=== PATIENT | female | born 1955 | race African-American/Black ===

== ENCOUNTER → 2017-05-23 | Outpatient (CLI) | payer MEDICARE ==
[2017-05-23 09:47] LABS: Calcium 9.6 mg/dL (8.4-10.2); Potassium 4.5 mmol/L (3.5-5.1); Total Bilirubin 0.7 mg/dL (0.2-1.3); Total Protein 7.5 g/dL (6.3-8.2)
[2017-05-23 10:20] LABS: CHCM 30.2; HDW 2.38; HGB 13.9 gm/dL (11.4-16.0); Hypochromasia Moderate; MCH 29.5 pg (25.0-35.0); MCHC 29.6 g/dL (31.0-37.0); MCV 99.9 fL (80.0-100.0); RDW 12.2 % (11.5-15.5); WBC 7.4 k/uL (3.8-10.6)
[2017-05-23 12:15] LABS: Hemoglobin A1C 6.7 % (4.2-6.1)
== END | disposition home or self-care (01) ==
LOC: LABWHC1 08:37
PROVIDERS: ATTEND Internal Medicine
DX: E78.2 Mixed hyperlipidemia (principal); E11.65 Type 2 diabetes mellitus with hyperglycemia; I10 Essential (primary) hypertension
CPT/HCPCS: 36415; 80053; 80061; 83036; 84443; 85027

== ENCOUNTER → 2017-08-09 | Outpatient (CLI) | payer MEDICARE, OTHER ==
--- NOTE | 2017-08-10 08:52 | BD ---
EXAMINATION TYPE: MG DEXA axial skeleton. DATE OF EXAM: 08/09/2017 COMPARISON: NONE CLINICAL HISTORY: Height: 64.5 IN Weight: 289 LBS FRAX RISK QUESTIONS: Alcohol (3 or more units per day): NO Family History (Parent hip fracture): NO Glucocorticoids (More than 3mos): NO (Ex: prednisone, prednisolone, methylprednisolone, dexamethasone, and hydrocortisone). History of Fracture in Adulthood: NO Secondary Osteoporosis: 1. Type 1 Diabetes: NO 2. Hyperthyroidism: NO 3. Menopause before 45: YES AGE 33 4. Malnutrition: NO 5. Chronic liver disease: NO Rheumatoid Arthritis: NO Current Tobacco Use: NO RISK FACTORS HISTORY OF: Active: MINIMAL Diet low in dairy products/other sources of calcium: YES Postmenopausal woman: YES AGE 33 Lost more than 2 inches in height since high school: YES 2 " Poor Health: YES MEDICATIONS: Additional Medications: CHF MEDS, PAIN MEDS, BLOOD PRESSURE MEDS, Additional History: KIDNEY CANCER AGE 46 EXAM MEASUREMENTS: Bone mineral densitometry was performed using the [employer] System. Bone mineral density as measured about the Lumbar spine is: ----- L1-L4(G/cm2): 1.285 T Score Values are as follows: ----- L2: -0.4 ----- L3: 0.8 ----- L4: 2.5 ----- L1-L4: 0.9 Bone mineral density BASELINE Bone mineral density about the R hip (g/cm2): 0.963 Bone mineral density about the L hip (g/cm2): 0.910 T Score values are as follows: -----R Neck: -0.5 -----L Neck: -0.9 -----R Total: 0.8 -----L Total: 0.2 Bone mineral density BASELINE IMPRESSION: Normal (Values between +1 and -1 indicate normal bone mass). Consider repeating this study in 5 year s or sooner if there is some new clinical indication. NOTE: T-SCORE=SD OF THE YOUNG ADULT MEAN.
--- NOTE | 2017-08-10 09:37 | MM ---
Reason for exam: screening (asymptomatic). Last mammogram was performed 4 years and 8 months ago. History: Patient is postmenopausal and has history of other cancer at age 47. Physical Findings: A clinical breast exam by your physician is recommended on an annual basis and results should be correlated with mammographic findings. MG 3D Screening Mammo W/Cad Bilateral CC, MLO, and CV view(s) were taken. Prior study comparison: December 10, 2012, bilateral digital screening mammo w/CAD. September 29, 2011, bilateral digital screening mammo w/CAD. There are scattered fibroglandular densities. No suspicious abnormality on the left breast. There is a new 6mm focal asymmetry on the lower inner quadrant of the right breast, possibly a skin lesion. ASSESSMENT: Incomplete: need additional imaging evaluation, BI-RAD 0 RECOMMENDATION: Special view mammogram of the right breast. If lesion persists on supplemental views, image directed ultrasound is recommended. [facility] will attempt to contact patient to return for supplemental views and ultrasound if indicated.
== END | disposition home or self-care (01) ==
LOC: RADMAMWWP 14:27
PROVIDERS: ATTEND Internal Medicine
DX: Z12.31 Encounter for screening mammogram for malignant neoplasm of breast (principal); R92.8 Other abnormal and inconclusive findings on diagnostic imaging of breast; N95.1 Menopausal and female climacteric states
CPT/HCPCS: 77063; 77067; 77080

== ENCOUNTER 2018-09-24 15:31 | Inpatient (IN) | payer MEDICARE, OTHER ==
[2018-09-24] MEDS ORDERED: SODIUM CHLORIDE 0.9% 1,000 ML IV ONE (17:15)
--- NOTE | 2018-09-24 17:15 | ED ---
General Adult HPI - General Chief complaint: Recheck/Abnormal Lab/Rx Stated complaint: POSS CARDIAC ISSUE, TRANSFER FROM Time Seen by Provider: 09/24/18 15:35 Source: patient, EMS, RN notes reviewed Mode of arrival: EMS Limitations: no limitations - History of Present Illness Initial comments: This is a 63-year-old female who is brought into the emergency department for altered mental status. Patient was seen at [facility] for she was given Narcan and she came around to her [facility]. Patient currently is been sent to our facility because her creatinine was extremely elevated and this was new for her. Patient currently tells me she has no symptoms. Patient states her only complaint currently is that she's hungry. Patient denies any chest pain difficult breathing shortness breath per patient denies any recent fever chills or cough per patient denies any lightheadedness dizziness or near syncopal episode. Patient denies headache patient denies numbness weakness. Patient denies abdominal pain patient denies nausea vomiting diarrhea. Patient denies any dysuria hematuria urinary frequency. - Related Data Home Medications Medication Instructions Recorded Confirmed Unable To Assess [Unable to Assess] 04/19/16 04/19/16 Allergies Allergy/AdvReac Type Severity Reaction Status Date / Time No Known Allergies Allergy Verified 09/24/18 16:51 Review of Systems ROS Statement: Those systems with pertinent positive or pertinent negative responses have been documented in the HPI. ROS Other: All systems not noted in ROS Statement are negative. Past Medical History Past Medical History: Asthma, Cancer, COPD, Diabetes Mellitus, Hypertension Additional Past Medical History / Comment(s): arthritis History of Any Multi-Drug Resistant Organisms: None Reported Past Surgical History: Orthopedic Surgery Additional Past Surgical History / Comment(s): tubal ; left foot surgery; nephrectomy Past Psychological History: No Psychological Hx Reported Smoking Status: Never smoker Past Alcohol Use History: None Reported Past Drug Use History: None Reported General Exam - General Exam Comments Initial Comments: GENERAL: Patient is well-developed and well-nourished. Patient is nontoxic and well- hydrated and is in no acute distress. ENT: Neck is soft and supple. No significant lymphadenopathy is noted. Oropharynx is clear. Moist mucous membranes. Neck has full range of motion without eliciting any pain. EYES: The sclera were anicteric and conjunctiva were pink and moist. Extraocular movements were intact and pupils were equal round and reactive to light. Eyelids were unremarkable. PULMONARY: Unlabored respirations. Good breath sounds bilaterally. No audible rales rhonchi or wheezing was noted. CARDIOVASCULAR: There is a regular rate and rhythm without any murmurs gallops or rubs. ABDOMEN: Soft and nontender with normal bowel sounds. SKIN: Skin is clear with no lesions or rashes and otherwise unremarkable. NEUROLOGIC: Patient is alert and oriented x3. Cranial nerves II through XII are grossly intact. Motor and sensory are also intact. Normal speech, volume and content. Symmetrical smile. MUSCULOSKELETAL: Normal extremities with adequate strength and full range of motion. LYMPHATICS: No significant lymphadenopathy is noted PSYCHIATRIC: Normal psychiatric evaluation. Limitations: no limitations Course Vital Signs 09/24/18 15:33 Temperature 98.8 F Pulse Rate 67 Respiratory 18 Rate Blood Pressure 129/47 O2 Sat by Pulse 95 Oximetry Medical Decision Making - Medical Decision Making I spoke with Dr. Michelle he agreed to admit the patient admitted the patient wrote admitting orders. Disposition Clinical Impression: Acute renal failure, Altered mental status, Drug ingestion, accidental Disposition: ADMITTED IP TO THIS HOSP Referrals: Lelo Michelle MD [Primary Care Provider] - 1-2 days Time of Disposition: 17:14
[2018-09-24] MEDS ORDERED: NALOXONE 0.4 MG/ML 10 ML VIAL IVP STA (17:26)
[2018-09-25 03:45] LABS: Glucose,Whole Blood 208 mg/dL (75-99)
[2018-09-25 06:18] LABS: Glucose,Whole Blood 176 mg/dL (75-99)
[2018-09-25 07:33] LABS: Basophils % (A) 0 %; Eosinophils # (A) 0.1 k/uL (0-0.7); Eosinophils % (A) 1 %; HCT 43.5 % (34.0-46.0); HGB 12.8 gm/dL (11.4-16.0); Hypochromasia Marked; Lymphocytes % (A) 13 %; MCH 30.4 pg (25.0-35.0); MCHC 29.5 g/dL (31.0-37.0); MCV 103.2 fL (80.0-100.0); Macrocytosis Slight; Monocytes % (A) 6 %; Neutrophils # (A) 11.8 k/uL (1.3-7.7); Neutrophils % (A) 78 %; Platelet Count 175 k/uL (150-450); RBC 4.21 m/uL (3.80-5.40); RDW 13.1 % (11.5-15.5); WBC 15.2 k/uL (3.8-10.6)
[2018-09-25 07:48] LABS: Albumin 3.9 g/dL (3.5-5.0); Calcium 8.4 mg/dL (8.4-10.2); Potassium 5.4 mmol/L (3.5-5.1); Total Bilirubin 0.5 mg/dL (0.2-1.3); Total Protein 7.1 g/dL (6.3-8.2)
[2018-09-25 11:43] LABS: Glucose,Whole Blood 151 mg/dL (75-99)
[2018-09-25] MEDS ORDERED: APIXABAN 5 MG TAB PO SCH (11:45)
--- NOTE | 2018-09-25 11:48 | P.HPIM ---
History of Present Illness H&P Date: 09/25/18 This is a 63-year-old female patient presented to the hospital with altered mental status changes. Patient currently follows with pain clinic. According to records and patient's daughter at bedside patient took 2 Percocet along with 2 MS Contin two night ago. Upon waking patient was increasingly weak. Patient' s family urged patient to go to hospital for further evaluation. Patient went to [facility] in which she received Narcan. She also on acute renal failure with creatinine of 6.79. Patient was then transferred to [facility] for further evaluation. She denies any recent illness with diarrhea or emesis. Patient does reports she continue meds as prescribed. Patient has past medical history of asthma, cancer, COPD, diabetes mellitus, DVT which she takes eliquis, hypertension, renal disease, [place] filter and chronic pain from arthritis. During examination patient was alert and oriented 3 but very drowsy. Patient would often fall asleep during conversation. Patient has not received any narcotics for 24 hours. Patient's daughter at bedside also reports that patient has been delusional lately. On examination patient does follow commands and has equal strength throughout all extremities. No facial droop noted. Speech is clear. At this time drug screen has been ordered. CT of head ordered. Dr. Mitchell has been consulted for nephrology. All narcotics currently on hold. EKG ordered. Chest x-ray ordered. Urinary analysis and culture ordered. Patient denies any chest pain. Patient is complaining of nonproductive cough. Patient denies nausea vomiting or diarrhea. Patient denies any urinary burning or frequency. Review of Systems Please refer to HPI otherwise unremarkable Past Medical History Past Medical History: Asthma, Cancer, COPD, Diabetes Mellitus, Deep Vein Thrombosis (DVT), Hypertension, Renal Disease Additional Past Medical History / Comment(s): arthritis, polo filter History of Any Multi-Drug Resistant Organisms: None Reported Past Surgical History: Orthopedic Surgery Additional Past Surgical History / Comment(s): tubal ; left foot surgery; nephrectomy Past Psychological History: No Psychological Hx Reported Smoking Status: Never smoker Past Alcohol Use History: None Reported Past Drug Use History: None Reported - Past Family History Mother Family Medical History: CVA/TIA Father History Unknown: Yes Medications and Allergies Home Medications Medication Instructions Recorded Confirmed Type ALPRAZolam [Xanax] 0.25 mg PO TID PRN 09/24/18 09/24/18 History Albuterol Inhaler [Ventolin Hfa 2 puff INHALATION RT-Q4H PRN 09/24/18 09/24/18 History Inhaler] Apixaban [Eliquis] 5 mg PO BID 09/24/18 09/24/18 History Atenolol 12.5 mg PO DAILY 09/24/18 09/24/18 History Atorvastatin [Lipitor] 80 mg PO HS 09/24/18 09/24/18 History Citalopram Hydrobromide [CeleXA] 20 mg PO DAILY 09/24/18 09/24/18 History Docusate Sodium [Dok] 100 mg PO BID 09/24/18 09/24/18 History Gabapentin [Neurontin] 100 mg PO TID 09/24/18 09/24/18 History INSULIN ASPART (NovoLOG) [NovoLOG 10 unit SQ TID 09/24/18 09/24/18 History (formulary)] Insulin Glargine [Lantus] 30 - 35 unit SQ HS 09/24/18 09/24/18 History Isosorbide Mononitrate ER [Imdur] 30 mg PO DAILY 09/24/18 09/24/18 History Lisinopril [Zestril] 10 mg PO DAILY 09/24/18 09/25/18 History Montelukast [Singulair] 10 mg PO DAILY 09/24/18 09/24/18 History Morphine Sulfate Ir [MSIR] 30 mg PO QID 09/24/18 09/24/18 History Omeprazole 20 mg PO DAILY 09/24/18 09/24/18 History Spironolactone 25 mg PO DAILY 09/24/18 09/24/18 History cloNIDine HCL [Catapres] 0.1 mg PO BID 09/24/18 09/24/18 History hydrALAZINE HCL 50 mg PO BID 09/24/18 09/24/18 History Chlorthalidone [Hygroton] 25 mg PO DAILY 09/25/18 09/25/18 History Allergies Allergy/AdvReac Type Severity Reaction Status Date / Time No Known Allergies Allergy Verified 09/24/18 17:19 Physical Exam Vitals: Vital Signs Temp Pulse Pulse Resp BP BP Pulse Ox 09/25/18 09:15 68 22 09/25/18 08:38 18 09/25/18 08:00 98.5 F 68 22 96/50 99 09/25/18 04:00 97.5 F L 67 19 111/64 96 09/25/18 00:00 98.5 F 71 17 153/94 95 09/24/18 21:42 69 16 88/50 94 L 09/24/18 19:30 67 95 09/24/18 19:00 70 140/75 09/24/18 18:00 75 153/113 09/24/18 17:39 16 09/24/18 17:30 63 126/42 95 09/24/18 16:30 69 85/43 94 L 09/24/18 16:00 69 129/47 94 L 09/24/18 15:33 98.8 F 67 18 129/47 95 Intake and Output 09/24/18 09/25/18 09/25/18 22:59 06:59 14:59 Intake Total 75 100 Output Total 350 Balance 75 -350 100 Intake: IV 75 Sodium Chloride 0.9% 1, 75 000 ml @ 75 mls/hr IV . [id number] ONE Rx#:[id number] Oral 100 Output: Urine 350 Other: Voiding Method Indwelling Catheter Indwelling Catheter Weight 137.438 kg 133.5 kg Head normocephalic Neck supple Lungs clear to auscultation bilaterally no wheezing or crackles Heart regular rate and rhythm S1-S2, no rub or gallop Abdomen is soft nontender nondistended positive bowel sounds no hepatosplenomegaly Extremities no edema Neuro alert and orientated to 3. Patient is very drowsy but arousable. Patient does have equal strength throughout all extremities. No facial droop noted. Speech is clear. Results CBC & Chem 7: 09/25/18 06:04 09/25/18 06:04 Labs: Abnormal Lab Results - Last 24 Hours (Table) 09/25/18 09/25/18 09/25/18 Range/Units 03:33 06:04 06:04 WBC 15.2 H (3.8-10.6) k/uL MCV 103.2 H (80.0-100.0) fL MCHC 29.5 L (31.0-37.0) g/dL Neutrophils # 11.8 H (1.3-7.7) k/uL Potassium 5.4 H (3.5-5.1) mmol/L Chloride 110 H (98-107) mmol/L Carbon Dioxide 15 L (22-30) mmol/L BUN 83 H (7-17) mg/dL Creatinine 6.79 H (0.52-1.04) mg/dL Glucose 167 H (74-99) mg/dL POC Glucose (mg/dL) 208 H (75-99) mg/dL AST 66 H (14-36) U/L 09/25/18 Range/Units 06:17 WBC (3.8-10.6) k/uL MCV (80.0-100.0) fL MCHC (31.0-37.0) g/dL Neutrophils # (1.3-7.7) k/uL Potassium (3.5-5.1) mmol/L Chloride (98-107) mmol/L Carbon Dioxide (22-30) mmol/L BUN (7-17) mg/dL Creatinine (0.52-1.04) mg/dL Glucose (74-99) mg/dL POC Glucose (mg/dL) 176 H (75-99) mg/dL AST (14-36) U/L Thrombosis Risk Factor Assmnt - Choose All That Apply Any of the Below Risk Factors Present?: Yes Each Factor Represents 1 point: Obesity (BMI >25) Other Risk Factors: Yes Each Risk Factor Represents 2 Points: Age 61-74 years Each Risk Factor Represents 3 Points: History of DVT/PE Thrombosis Risk Factor Assessment Total Risk Factor Score: 6 Thrombosis Risk Factor Assessment Level: High Risk Assessment and Plan Assessment: 1. Altered mental status changes. Questionable medication overdose. Per patient's family and nursing staff all pills correctly accounted for. Drug screen has been ordered. Head CT ordered. All controlled substances currently on hold 2. Acute kidney injury. Creatinine 6.79 and bun 83. Potassium also elevated at 5.4. Patient denies any recent illness. Dr. Mitchell has been consulted for nephrology services. Ultrasound of kidneys and bladder ordered per nephrology. Normal saline at 75. Indwelling Enriquez catheter in place 3. Leukocytosis. White blood cell elevated at 15.4. Chest x-ray, urinary analysis and blood culture ordered. Patient has been afebrile 4. History of DVT. Eliquis has been resumed to be restarted after head CT completed 5. Diabetes mellitus. Home insulin ordered for sliding scale coverage. Hemoglobin A1c ordered 6. History of COPD 7. History of essential hypertension. Multiple blood pressure patient currently on hold due to acute kidney injury. Patient also with blood pressure systolic in the 90s 8. History of asthma 9. History of arthritis DVT prophylaxis eliquis. GI prophylaxis Protonix Time with Patient: Greater than 30 (Greater than 60% of the total time spent in counseling and coordination of care. I performed an examination of the patient and discussed their management with the Nurse Practitioner. I have reviewed the Nurse Practitioner's notes and agree with the documented findings and plan of care)
[2018-09-25] MEDS: INSULIN ASPART (NovoLOG) 100 UNIT/ML VIAL SQ SCH ×2 (12:51→18:17)
--- NOTE | 2018-09-25 13:31 | US ---
EXAMINATION TYPE: US kidneys/renal and bladder DATE OF EXAM: 09/25/2018 COMPARISON: NONE CLINICAL HISTORY: Lower renal function. morbidly obese inpt that is sleeping and does not wake during exam, h/o left nephrectomy per daughter EXAM MEASUREMENTS: Scanned RUQ, bladder area and LUQ; Non diagnostic exam due to body habitus, bowel gas and inability for patient to help during exam. Magdy hnologist reported the renal outlines could not be identified. IMPRESSION: Nondiagnostic exam as discussed above
[2018-09-25 13:36] LABS: Hemoglobin A1C 7.7 % (4.0-6.0)
--- NOTE | 2018-09-25 13:58 | XR ---
EXAMINATION TYPE: XR chest 2V DATE OF EXAM: 09/25/2018 COMPARISON: 09/24/2018 TECHNIQUE: PA and lateral views submitted. HISTORY: Follow up altered mental status FINDINGS: Exam markedly limited due to technique. Arthropathy of the shoulders and cardiomegaly persist. Cannot exclude infiltrate at the lung bases. Mediastinum is widened. No pneumothorax. There is reduced insp iration. Underlying COPD suspected. IMPRESSION: 1. Markedly limited exam could not exclude an infiltrate at the lung bases or central venous congesti on. Heart is enlarged and the mediastinum is widened. Adenopathy or mass particularly within the righ t hilum or suprahilar region the differential diagnosis consider CT scan given limitation of the exam .
--- NOTE | 2018-09-25 14:11 | CT ---
EXAMINATION TYPE: CT brain wo con DATE OF EXAM: 09/25/2018 COMPARISON: None HISTORY: 63-year-old female altered mental status, uncooperative. Mental status changes. TECHNIQUE: Examination was done in axial plane without intravenous contrast. Coronal and sagittal r econstructions performed. CT DLP: 1276.4 mGycm Automated exposure control for dose reduction was used. FINDINGS: This cortical and subcortical hypodensity with loss of anderson-white matter differentiation in the poste rior right parietal lobe. No mass effect, midline shift, or herniation identified. Motion artifacts cause some limitation in assessment. No evidence for acute intracranial hemorrhage allowing for this limitation. No extra-axial fluid marlon ection seen. No hydrocephalus. Mild leftward nasal septal deviation. Paranasal sinuses and mastoid air cells are well pneumatized. O rbits and globes appear intact. IMPRESSION: 1. Motion limited exam. There is hypodensity involving the posterior right parietal lobe. Correlate f or possible subacute or chronic infarct. No mass effect or midline shift. 2. No acute intracranial hemorrhage, mass effect, or midline shift.
[2018-09-25 16:40] LABS: Glucose,Whole Blood 133 mg/dL (75-99)
[2018-09-25 18:00] LABS: Amphetamine Screen,Urine Not Detected (NotDetected); Barbiturate Screen,Urine Not Detected (NotDetected); Benzodiazepines Screen,Urine Detected (NotDetected); Cocaine Screen,Urine Not Detected (NotDetected); Methadone Screen, Urine Not Detected (NotDetected); Opiate Screen,Urine Detected (NotDetected); Oxycodone Screen, Urine Not Detected (NotDetected); Phencyclidine Screen,Urine Not Detected (NotDetected); Tricyclic Antidepressant,Urine Not Detected (NotDetected); Urn Cannabinoid Scrn Not Detected (NotDetected)
[2018-09-25 18:02] LABS: Appearance,Urine Cloudy (Clear); Bilirubin,Urine Negative (Negative); Blood,Urine Moderate (Negative); Color,Urine Yellow; Glucose,Urine (UA) Negative (Negative); Hyaline Casts,Urine 2 /lpf (0-2); Ketones,Urine Negative (Negative); Leukocyte Esterase,Urine Moderate (Negative); Mucus,Urine Rare /hpf; Nitrite,Urine Negative (Negative); Protein,Urine 1+ (Negative); RBC,Urine >182 /hpf (0-5); Specific Gravity,Urine 1.014 (1.001-1.035); Squamous Epithelial Cell,Urine 1 /hpf (0-4); Urobilinogen,Urine <2.0 mg/dL (<2.0); WBC,Urine 89 /hpf (0-5)
[2018-09-25] MEDS: DOCUSATE 100 MG CAP PO SCH ×2 (18:15→22:43)
[2018-09-25] MEDS: PANTOPRAZOLE 40 MG TABLET PO SCH (18:15)
[2018-09-25] MEDS: MONTELUKAST 10 MG TAB PO SCH (18:15)
[2018-09-25 19:18] LABS: Calcium 8.2 mg/dL (8.4-10.2)
[2018-09-25 19:43] LABS: Potassium 6.3 mmol/L (3.5-5.1)
[2018-09-25] MEDS ORDERED: SODIUM CHLORIDE 0.9% 1,000 ML IV SCH (19:45)
[2018-09-25 20:32] LABS: Glucose,Whole Blood 136 mg/dL (75-99)
[2018-09-25] MEDS ORDERED: DEXTROSE 50%-WATER 50 ML SYRINGE IVP STA (20:55)
[2018-09-25] MEDS ORDERED: INSULIN REGULAR 100 UNIT/ML VIAL IV ONE (20:55)
[2018-09-25] MEDS: DEXTROSE 5% IN WATER 1,000 ML with SODIUM BICARB (1 MEQ/ML) 150 ML IV SCH (22:00)
[2018-09-25] MEDS: APIXABAN 5 MG TAB PO SCH (22:43)
[2018-09-25] MEDS: INSULIN DETEMIR (LEVEMIR) 100 UNIT/ML SYR SQ SCH (22:43)
[2018-09-25] MEDS: hydrALAZINE HCL 50 MG TAB PO SCH (22:43)
[2018-09-25] MEDS: SODIUM BICARBONATE TAB 650 MG TAB PO SCH (22:43)
--- NOTE | 2018-09-26 00:01 | CONS ---
CONSULTATION REASON FOR CONSULT: Renal failure. HISTORY OF PRESENT ILLNESS: Patient is a 63-year-old female who was admitted to the hospital with mental status changes, increased weakness. It appears that she may have taken extra Percocet, according to her daughter. Patient was scheduled to see us as outpatient for renal failure. Family denies any prior significant renal failure. However, she does have a solitary kidney. On admission, patient was noted to have a serum creatinine of 6.79. Her previous creatinine on 05/23/2017 was 1.36. There is no history of use of NSAIDs prior to admission. I do see DEREK inhibitors on her home medication list. Patient is currently voiding. She has an indwelling Enriquez catheter. Urine output was about 350 mL overnight. Review of vital signs shows blood pressure has been low; initially it was 153, but lately I do see a 96 mmHg systolic. PAST MEDICAL HISTORY: Significant for: 1. Asthma. 2. COPD. 3. Type 2 diabetes. 4. History of DVT. 5. Hypertension. 6. History of chronic kidney disease. Baseline not known. 7. Osteoarthritis. PAST SURGICAL HISTORY: 1. [place] filter placement. 2. Tubal . 3. Left foot surgery. 4. Nephrectomy. SOCIAL HISTORY: Negative for smoking, drug abuse or alcohol abuse. HOME MEDICATIONS: Included: 1. Xanax. 2. Eliquis. 3. Albuterol. 4. Atenolol. 5. Lipitor. 6. Celexa. 7. Neurontin. 8. Insulin. 9. Zestril. 10.Singulair. 11.Omeprazole. 12.Clonidine. 13.Spironolactone. 14.Hydralazine. 15.Chlorthalidone. ALLERGIES: NONE. REVIEW OF SYSTEMS: As per HPI. Other systems negative. PHYSICAL EXAMINATION: Patient is awake. She is drowsy but is easily woken up. Blood pressure this morning was 96/50, heart rate 68 per minute. She is afebrile. EXAMINATION OF THE HEART: S1 and S2. EXAMINATION OF LUNGS: Bilateral breath sounds are heard. ABDOMEN: Soft, non-tender, obese. Examination of lower extremities shows no significant edema. DELICATESSEN DEPARTMENT MANAGER exam shows patient is confused, drowsy, but she is moving all 4 extremities. LABS: Sodium 143, potassium 5.4, chloride 110. CO2 is 15, BUN 83, serum creatinine 6.79, hemoglobin 12.8 g/dL. ASSESSMENT: 1. Acute kidney injury, most likely acute tubular necrosis, currently nonoliguric. Hold off on DEREK inhibitors. Continue aggressive IV hydration. Repeat labs in a.m. Continue to avoid nephrotoxic agents as well. 2. History of nephrectomy, reason not known; most likely underlying malignancy. 3. History of hypertension. Blood pressure currently low. Hold off on DEREK inhibitors and other anti-hypertensive medications. 4. Non-gap metabolic acidosis secondary to renal failure. 5. History of deep venous thrombosis, maintained on Eliquis. 6. History of chronic obstructive pulmonary disease. 7. Mental status changes secondary to advanced renal failure and some degree of uremia as well as pain medications. If her mentation does not improve by tomorrow with improving renal function, patient may need to be dialyzed. 8. Mild hyperkalemia associated with advanced renal failure. PLAN: Continue with IV fluids. Repeat labs this evening. Maintain indwelling Enriquez catheter. Hold off on all DEREK inhibitors. Add oral sodium bicarb and switch to IV bicarb if her metabolic acidosis is worse. I would also avoid use of Eliquis, given the worsening renal failure and acute kidney injury, particularly if renal function does not improve over the next couple of days. Thank you for this consultation. Will continue to follow the patient with you during her hospitalization. MMODL / IJN: [id number] /
[2018-09-26 06:16] LABS: Glucose,Whole Blood 169 mg/dL (75-99)
[2018-09-26] MEDS: PANTOPRAZOLE 40 MG TABLET PO SCH (06:22)
[2018-09-26] MEDS: INSULIN ASPART (NovoLOG) 100 UNIT/ML VIAL SQ SCH ×3 (06:22→19:42)
[2018-09-26 06:30] LABS: Basophils % (A) 0 %; Eosinophils % (A) 0 %; HGB 11.3 gm/dL (11.4-16.0); Hypochromasia Marked; Lymphocytes # (A) 0.8 k/uL (1.0-4.8); Lymphocytes % (A) 7 %; MCH 30.8 pg (25.0-35.0); MCHC 29.7 g/dL (31.0-37.0); MCV 103.8 fL (80.0-100.0); Macrocytosis Slight; Monocytes # (A) 0.9 k/uL (0-1.0); Monocytes % (A) 8 %; Neutrophils % (A) 82 %; Platelet Count 143 k/uL (150-450); RBC 3.66 m/uL (3.80-5.40); RDW 13.1 % (11.5-15.5)
[2018-09-26 07:05] LABS: Calcium 8.1 mg/dL (8.4-10.2); Potassium 5.5 mmol/L (3.5-5.1); Total Bilirubin 0.6 mg/dL (0.2-1.3); Total Protein 5.9 g/dL (6.3-8.2)
[2018-09-26 10:15] LABS: ABG Base Excess -8.1 mmol/L; ABG HCO3 20 mmol/L (21-25); ABG PCO2 48 mmHg (35-45); ABG PH 7.22 (7.35-7.45); ABG PO2 81 mmHg (83-108); ABG TCO2 21 mmol/L (19-24)
--- NOTE | 2018-09-26 10:47 | P.PN ---
Subjective Progress Note Date: 09/26/18 This is a 63-year-old female patient presented to the hospital with altered mental status changes. Patient currently follows with pain clinic. According to records and patient's daughter at bedside patient took 2 Percocet along with 2 MS Contin two night ago. Upon waking patient was increasingly weak. Patient' s family urged patient to go to hospital for further evaluation. Patient went to [facility] in which she received Narcan. She also on acute renal failure with creatinine of 6.79. Patient was then transferred to [facility] for further evaluation. She denies any recent illness with diarrhea or emesis. Patient does reports she continue meds as prescribed. Patient has past medical history of asthma, cancer, COPD, diabetes mellitus, DVT which she takes eliquis, hypertension, renal disease, Rahul filter and chronic pain from arthritis. During examination patient was alert and oriented 3 but very drowsy. Patient would often fall asleep during conversation. Patient has not received any narcotics for 24 hours. Patient's daughter at bedside also reports that patient has been delusional lately. On examination patient does follow commands and has equal strength throughout all extremities. No facial droop noted. Speech is clear. At this time drug screen has been ordered. CT of head ordered. Dr. Mitchell has been consulted for nephrology. All narcotics currently on hold. EKG ordered. Chest x-ray ordered. Urinary analysis and culture ordered. Patient denies any chest pain. Patient is complaining of nonproductive cough. Patient denies nausea vomiting or diarrhea. Patient denies any urinary burning or frequency. on 09/26/2018 patient more lethargic and confused today. Patient does wake up and follows commands. Discussed case with nephrology services planning to place a dialysis catheter and emergent dialysis due to increased confusion. Creatinine is trending down. Per nephrology will not likely require chronic dialysis. Patient not taking pills. Will switch patient to Lovenox 1 mg/kg pharmacy to dose for DVT treatment. Medication to be given after hemodialysis catheter placed. Also discussed with critical care services. Consult placed. ABG's ordered. Objective - Vital Signs Vital signs: Vital Signs Temp 99.2 F 09/26/18 08:45 Pulse 66 09/26/18 08:45 Resp 18 09/26/18 08:45 BP 122/58 09/26/18 08:45 Pulse Ox 100 09/26/18 08:45 Intake & Output 09/25/18 09/26/18 09/26/18 18:59 06:59 18:59 Intake Total 575 1175 0 Balance 575 1175 0 Weight 138 kg Intake: IV 375 150 Sodium Chloride 0.9% 1, 375 150 000 ml @ 75 mls/hr IV . [id number] ONE Rx#:[id number] Intake, IV Titration 1025 Amount Dextrose 5% in Water 1, 975 000 ml @ 75 mls/hr IV . [id number] [id number] with Sodium Bicarb (1 Meq/ml) 150 ml Rx#:[id number] cefTRIAXone 1 gm In 50 Sodium Chloride 0.9% 50 ml @ 100 mls/hr IVPB HS HUNG Rx#:[id number] Oral 200 0 Other: Voiding Method Indwelling Catheter Indwelling Catheter - Exam Head normocephalic Neck supple Lungs clear to auscultation bilaterally no wheezing or crackles Heart regular rate and rhythm S1-S2, no rub or gallop Abdomen is soft nontender nondistended positive bowel sounds no hepatosplenomegaly Extremities no edema Neuro alert and orientated to 3. Patient is very drowsy but arousable. Patient does have equal strength throughout all extremities. No facial droop noted. Speech is clear. - Labs CBC & Chem 7: 09/26/18 05:23 09/26/18 05:23 Labs: Abnormal Lab Results - Last 24 Hours (Table) 09/25/18 09/25/18 09/25/18 Range/Units 06:04 11:30 15:30 WBC (3.8-10.6) k/uL RBC (3.80-5.40) m/uL Hgb (11.4-16.0) gm/dL MCV (80.0-100.0) fL MCHC (31.0-37.0) g/dL Plt Count (150-450) k/uL Neutrophils # (1.3-7.7) k/uL Lymphocytes # (1.0-4.8) k/uL ABG pH (7.35-7.45) ABG pCO2 (35-45) mmHg ABG pO2 (83-108) mmHg ABG HCO3 (21-25) mmol/L Potassium (3.5-5.1) mmol/L Chloride (98-107) mmol/L Carbon Dioxide (22-30) mmol/L BUN (7-17) mg/dL Creatinine (0.52-1.04) mg/dL Glucose (74-99) mg/dL POC Glucose (mg/dL) 151 H (75-99) mg/dL Hemoglobin A1c 7.7 H (4.0-6.0) % Calcium (8.4-10.2) mg/dL AST (14-36) U/L Total Protein (6.3-8.2) g/dL Albumin (3.5-5.0) g/dL Urine Appearance Cloudy H (Clear) Urine Protein 1+ H (Negative) Urine Blood Moderate H (Negative) Ur Leukocyte Esterase Moderate H (Negative) Urine RBC >182 H (0-5) /hpf Urine WBC 89 H (0-5) /hpf Urine WBC Clumps Moderate H (None) /hpf Urine Mucus Rare H (None) /hpf Urine Opiates Screen Detected H (NotDetected) U Benzodiazepines Scrn Detected H (NotDetected) 09/25/18 09/25/18 09/25/18 Range/Units 16:36 18:38 20:30 WBC (3.8-10.6) k/uL RBC (3.80-5.40) m/uL Hgb (11.4-16.0) gm/dL MCV (80.0-100.0) fL MCHC (31.0-37.0) g/dL Plt Count (150-450) k/uL Neutrophils # (1.3-7.7) k/uL Lymphocytes # (1.0-4.8) k/uL ABG pH (7.35-7.45) ABG pCO2 (35-45) mmHg ABG pO2 (83-108) mmHg ABG HCO3 (21-25) mmol/L Potassium 6.3 H* (3.5-5.1) mmol/L Chloride 111 H (98-107) mmol/L Carbon Dioxide 16 L (22-30) mmol/L BUN 94 H (7-17) mg/dL Creatinine 5.80 H (0.52-1.04) mg/dL Glucose 141 H (74-99) mg/dL POC Glucose (mg/dL) 133 H 136 H (75-99) mg/dL Hemoglobin A1c (4.0-6.0) % Calcium 8.2 L (8.4-10.2) mg/dL AST (14-36) U/L Total Protein (6.3-8.2) g/dL Albumin (3.5-5.0) g/dL Urine Appearance (Clear) Urine Protein (Negative) Urine Blood (Negative) Ur Leukocyte Esterase (Negative) Urine RBC (0-5) /hpf Urine WBC (0-5) /hpf Urine WBC Clumps (None) /hpf Urine Mucus (None) /hpf Urine Opiates Screen (NotDetected) U Benzodiazepines Scrn (NotDetected) 09/26/18 09/26/18 09/26/18 Range/Units 05:23 05:23 06:15 WBC 11.0 H (3.8-10.6) k/uL RBC 3.66 L (3.80-5.40) m/uL Hgb 11.3 L (11.4-16.0) gm/dL MCV 103.8 H (80.0-100.0) fL MCHC 29.7 L (31.0-37.0) g/dL Plt Count 143 L (150-450) k/uL Neutrophils # 9.0 H (1.3-7.7) k/uL Lymphocytes # 0.8 L (1.0-4.8) k/uL ABG pH (7.35-7.45) ABG pCO2 (35-45) mmHg ABG pO2 (83-108) mmHg ABG HCO3 (21-25) mmol/L Potassium 5.5 H (3.5-5.1) mmol/L Chloride 111 H (98-107) mmol/L Carbon Dioxide 17 L (22-30) mmol/L BUN 95 H (7-17) mg/dL Creatinine 4.87 H (0.52-1.04) mg/dL Glucose 176 H (74-99) mg/dL POC Glucose (mg/dL) 169 H (75-99) mg/dL Hemoglobin A1c (4.0-6.0) % Calcium 8.1 L (8.4-10.2) mg/dL AST 49 H (14-36) U/L Total Protein 5.9 L (6.3-8.2) g/dL Albumin 3.0 L (3.5-5.0) g/dL Urine Appearance (Clear) Urine Protein (Negative) Urine Blood (Negative) Ur Leukocyte Esterase (Negative) Urine RBC (0-5) /hpf Urine WBC (0-5) /hpf Urine WBC Clumps (None) /hpf Urine Mucus (None) /hpf Urine Opiates Screen (NotDetected) U Benzodiazepines Scrn (NotDetected) 09/26/18 Range/Units 09:53 WBC (3.8-10.6) k/uL RBC (3.80-5.40) m/uL Hgb (11.4-16.0) gm/dL MCV (80.0-100.0) fL MCHC (31.0-37.0) g/dL Plt Count (150-450) k/uL Neutrophils # (1.3-7.7) k/uL Lymphocytes # (1.0-4.8) k/uL ABG pH 7.22 L (7.35-7.45) ABG pCO2 48 H (35-45) mmHg ABG pO2 81 L (83-108) mmHg ABG HCO3 20 L (21-25) mmol/L Potassium (3.5-5.1) mmol/L Chloride (98-107) mmol/L Carbon Dioxide (22-30) mmol/L BUN (7-17) mg/dL Creatinine (0.52-1.04) mg/dL Glucose (74-99) mg/dL POC Glucose (mg/dL) (75-99) mg/dL Hemoglobin A1c (4.0-6.0) % Calcium (8.4-10.2) mg/dL AST (14-36) U/L Total Protein (6.3-8.2) g/dL Albumin (3.5-5.0) g/dL Urine Appearance (Clear) Urine Protein (Negative) Urine Blood (Negative) Ur Leukocyte Esterase (Negative) Urine RBC (0-5) /hpf Urine WBC (0-5) /hpf Urine WBC Clumps (None) /hpf Urine Mucus (None) /hpf Urine Opiates Screen (NotDetected) U Benzodiazepines Scrn (NotDetected) Microbiology - Last 24 Hours (Table) 09/25/18 08:38 Urine Culture - Preliminary Urine,Catheterized Assessment and Plan Assessment: 1. Altered mental status changes. Questionable medication overdose. Per patient's family and nursing staff all pills correctly accounted for. Drug screen has been ordered. head CT completed showing motion limited exam. There is hypodensity involving the posterior right parietal lobe. Correlate for possible subacute or chronic infarct no mass effect or midline shift. No acute intracranial hemorrhage, mass effect or midline shift.ABG blood gases ordered 2. Acute kidney injury. Creatinine 6.79 and bun 83. Potassium also elevated at 5.4. Patient denies any recent illness. Dr. Mitchell has been consulted for nephrology services. Ultrasound of kidneys and bladder ordered per nephrology. Normal saline at 75. Indwelling Enriquez catheter in place. ultrasound of kidneys renal and bladder completed showing nondiagnostic exam. Discussed case with Dr. Flor per nephrology. Patient will undergo emergent dialysis today due to increased confusion. Creatinine is trending down. 3. Leukocytosis. White blood cell elevated at 15.4. Chest x-ray, urinary analysis and blood culture ordered. Patient has been afebrile. Dr. Lance has been consulted for critical care and pulmonary management 4. History of DVT. Eliquis has been resumed to be restarted after head CT completed. she not tolerating pills at this time. Discussed with oncology will switch patient over to Lovenox 1 mg/kg per pharmacy to dose due to renal dosing 5. Diabetes mellitus. Home insulin ordered for sliding scale coverage. Hemoglobin A1c ordered 6. History of COPD 7. History of essential hypertension. Multiple blood pressure patient currently on hold due to acute kidney injury. Patient also with blood pressure systolic in the 90s 8. History of asthma 9. History of arthritis DVT prophylaxis Lovenox. GI prophylaxis Protonix nephrology and critical care consulted. ABG blood gases have been ordered patient to get hemodialysis today
[2018-09-26 11:20] LABS: INR 1.2 (<1.2); Prothrombin Time 12.1 sec (9.0-12.0)
--- NOTE | 2018-09-26 11:47 | XR ---
EXAMINATION TYPE: XR chest 1V DATE OF EXAM: 09/26/2018 COMPARISON: 09/25/2018 HISTORY: Abnormal x-ray TECHNIQUE: Single frontal view of the chest is obtained. FINDINGS: Same remains limited. Cardiomegaly and atherosclerotic change aorta. Right lung clear. Prom inence the pulmonary arteries likely reflects pulmonary arterial hypertension. Linear changes at the left lung base. Arthropathy of the shoulders. IMPRESSION: 1. Left basilar atelectasis or infiltrate 2. Correlate for pulmonary arterial hypertension. Adenopathy or mass right hilum not excluded.
[2018-09-26 11:53] LABS: Glucose,Whole Blood 180 mg/dL (75-99)
[2018-09-26] MEDS: ATENOLOL 12.5 MG TAB PO SCH (11:55)
[2018-09-26] MEDS: DOCUSATE 100 MG CAP PO SCH ×2 (11:56→20:52)
[2018-09-26] MEDS: SODIUM BICARBONATE TAB 650 MG TAB PO SCH ×2 (11:57→20:52)
[2018-09-26] MEDS: MONTELUKAST 10 MG TAB PO SCH (11:57)
[2018-09-26] MEDS: hydrALAZINE HCL 50 MG TAB PO SCH ×2 (11:57→20:52)
[2018-09-26] MEDS: APIXABAN 5 MG TAB PO SCH (11:58)
[2018-09-26] MEDS ORDERED: LIDOCAINE 1% (PF) 10 MG/ML (30 ML SDV) SQ ONE (15:55)
[2018-09-26 16:45] LABS: Glucose,Whole Blood 158 mg/dL (75-99)
--- NOTE | 2018-09-26 17:12 | P.CNPUL ---
History of Present Illness Consult date: 09/26/18 Requesting physician: eLlo Michelle Reason for consult: other Chief complaint: Lethargy, hypercapnic respiratory failure History of present illness: This is a 63-year-old white female patient of Dr. Michelle, with a past medical history of asthma, diabetes mellitus type 2, hypertension, chronic pain, history of DVT on chronic anticoagulation, obstructive sleep apnea on CPAP. Patient was brought into the hospital on O2 to 2018 for evaluation of altered mental status changes, weakness. Patient presented to the [facility], patient is on MS Contin, and Percocet for chronic pain , given a dose of Narcan and was transferred to [facility] for further evaluation, she was found to be in acute kidney failure with a creatinine of 6.79. Her previous creatinine on 05/23/2017 was 1.36. Denied any recent fever, or chills, no nausea, vomiting or diarrhea. Denied any urinary symptoms. She does have a solitary kidney. Patient was on George inhibitors at home, no history of NSAID use prior to admission. Brain CT showed hypodensity involving the posterior right parietal lobe possibly related to subacute or chronic infarct, no acute intracranial process. Initial chest x-ray showed markedly limited exam due to hypoventilatory lungs, central venous congestion, and prominence of the right hilum. Patient was hydrated, she was given oral sodium bicarb replacements and was switched to IV bicarb infusion. Ultrasound of the abdomen was nondiagnostic. Blood work showed white blood cell count of 15.2, hemoglobin of 12.8, sodium was 139, potassium 6.3, chloride was 111, CO2 was 16, BUN was 94, creatinine was 5.8, moderate leuks, and WBCs of 89. Drug screen was positive for opiates and benzodiazepine. She was started on antibiotic coverage in the form of Rocephin, and IV hydration, and her renal profile improved some, with BUN at 95 and creatinine of 4.87 on today's labs. However her mentation was failing to improve, patient was persistently very lethargic, and apparently this morning she was quite somnolent. And this consult was initiated, follow-up chest x-ray showed left basilar atelectasis or infiltrate, pulmonary arterial hypertension, and adenopathy or mass in the right hilum was not excluded. Blood gas was obtained, and showed pO2 of 81, pCO2 is 48, and pH of 7.22, consistent with a combined metabolic, and respiratory acidosis. Patient does wear CPAP at home, based on BiPAP support at pressures of 12/6, and FiO2 of 40%. Upon my evaluation patient is responsive to verbal stimuli, and is able to provide short answers. Does not appear to be in any apparent distress, patient cannula for hemodialysis catheter insertion today, and hemodialysis will be initiated. Review of Systems All systems: negative Constitutional: Reports lethargy, Reports weakness, Denies chills, Denies fever Eyes: denies blurred vision, denies pain Ears, nose, mouth and throat: Denies headache, Denies sore throat Cardiovascular: Denies chest pain, Denies shortness of breath Respiratory: Reports dyspnea, Denies cough Gastrointestinal: Denies abdominal pain, Denies diarrhea, Denies nausea, Denies vomiting Genitourinary: Denies dysuria, Denies hematuria Musculoskeletal: Denies myalgias Integumentary: Denies pruritus, Denies rash Neurological: Reports change in mentation, Denies numbness, Denies weakness Psychiatric: Denies anxiety, Denies depression Endocrine: Denies fatigue, Denies weight change Past Medical History Past Medical History: Asthma, Cancer, COPD, Diabetes Mellitus, Deep Vein Thrombosis (DVT), Hypertension, Renal Disease Additional Past Medical History / Comment(s): arthritis, polo filter History of Any Multi-Drug Resistant Organisms: None Reported Past Surgical History: Orthopedic Surgery Additional Past Surgical History / Comment(s): tubal ; left foot surgery; nephrectomy Past Psychological History: No Psychological Hx Reported Smoking Status: Never smoker Past Alcohol Use History: None Reported Past Drug Use History: None Reported - Past Family History Mother Family Medical History: CVA/TIA Father History Unknown: Yes Medications and Allergies Home Medications Medication Instructions Recorded Confirmed Type ALPRAZolam [Xanax] 0.25 mg PO TID PRN 09/24/18 09/24/18 History Albuterol Inhaler [Ventolin Hfa 2 puff INHALATION RT-Q4H PRN 09/24/18 09/24/18 History Inhaler] Apixaban [Eliquis] 5 mg PO BID 09/24/18 09/24/18 History Atenolol 12.5 mg PO DAILY 09/24/18 09/24/18 History Atorvastatin [Lipitor] 80 mg PO HS 09/24/18 09/24/18 History Citalopram Hydrobromide [CeleXA] 20 mg PO DAILY 09/24/18 09/24/18 History Docusate Sodium [Dok] 100 mg PO BID 09/24/18 09/24/18 History Gabapentin [Neurontin] 100 mg PO TID 09/24/18 09/24/18 History INSULIN ASPART (NovoLOG) [NovoLOG 10 unit SQ TID 09/24/18 09/24/18 History (formulary)] Insulin Glargine [Lantus] 30 - 35 unit SQ HS 09/24/18 09/24/18 History Isosorbide Mononitrate ER [Imdur] 30 mg PO DAILY 09/24/18 09/24/18 History Lisinopril [Zestril] 10 mg PO DAILY 09/24/18 09/25/18 History Montelukast [Singulair] 10 mg PO DAILY 09/24/18 09/24/18 History Morphine Sulfate Ir [MSIR] 30 mg PO QID 09/24/18 09/24/18 History Omeprazole 20 mg PO DAILY 09/24/18 09/24/18 History Spironolactone 25 mg PO DAILY 09/24/18 09/24/18 History cloNIDine HCL [Catapres] 0.1 mg PO BID 09/24/18 09/24/18 History hydrALAZINE HCL 50 mg PO BID 09/24/18 09/24/18 History Chlorthalidone [Hygroton] 25 mg PO DAILY 09/25/18 09/25/18 History Allergies Allergy/AdvReac Type Severity Reaction Status Date / Time No Known Allergies Allergy Verified 09/24/18 17:19 Physical Exam Vitals: Vital Signs Temp Pulse Pulse Resp BP BP Pulse Ox 09/26/18 15:09 84 09/26/18 12:55 72 18 156/86 09/26/18 08:45 99.2 F 66 18 122/58 100 09/26/18 04:00 98.4 F 70 18 102/55 100 09/26/18 00:00 98.1 F 74 22 114/58 98 09/25/18 20:00 98.8 F 68 19 124/60 95 Intake and Output 02/09/26/18 09/26/18 06:59 14:59 22:59 Intake Total 600 0 Balance 600 0 Intake: IV 0 Sodium Chloride 0.9% 1, 0 000 ml @ 75 mls/hr IV . [id number] ONE Rx#:[id number] Intake, IV Titration 600 Amount Dextrose 5% in Water 1, 600 000 ml @ 75 mls/hr IV . [id number] HUNG with Sodium Bicarb (1 Meq/ml) 150 ml Rx#:[id number] Oral 0 Other: Voiding Method Indwelling Catheter Indwelling Catheter Weight 138 kg GENERAL EXAM: Somnolent, obese 63-year-old -[place] female, does wake up to verbal stimulation, and is able to provide short answers comfortable in no apparent distress. HEAD: Normocephalic/atraumatic. EYES: Normal reaction of pupils, equal size. Conjunctiva pink, sclera white. NOSE: Clear with pink turbinates. THROAT: No erythema or exudates. NECK: No masses, no JVD, no thyroid enlargement, no adenopathy. CHEST: No chest wall deformity. Symmetrical expansion. LUNGS: Equal air entry with a few scattered rhonchi, diminished breath sounds at the bases, no dullness, no wheezing CVS: Regular rate and rhythm, normal S1 and S2, no gallops, no murmurs, no rubs ABDOMEN: Soft, nontender. No hepatosplenomegaly, normal bowel sounds, no guarding or rigidity. EXTREMITIES: No clubbing, no edema, no cyanosis, 2+ pulses and upper and lower extremities. MUSCULOSKELETAL: Muscle strength and tone normal. SPINE: No scoliosis or deformity SKIN: No rashes CENTRAL NERVOUS SYSTEM: Alert and oriented -1. Lethargic PSYCHIATRIC: Alert and oriented -1. Results - Laboratory Findings CBC and BMP: 09/26/18 05:23 09/26/18 05:23 ABG ABG pH 7.22 (7.35-7.45) L 09/26/18 09:53 ABG pCO2 48 mmHg (35-45) H 09/26/18 09:53 ABG pO2 81 mmHg (83-108) L 09/26/18 09:53 ABG O2 Saturation 96.0 % (94-97) 09/26/18 09:53 PT/INR, D-dimer PT 12.1 sec (9.0-12.0) H 09/26/18 10:32 INR 1.2 (<1.2) H 09/26/18 10:32 Abnormal lab findings: Abnormal Labs 09/25/18 09/25/18 09/25/18 03:33 06:04 06:04 WBC 15.2 H RBC Hgb MCV 103.2 H MCHC 29.5 L Plt Count Neutrophils # 11.8 H Lymphocytes # PT INR ABG pH ABG pCO2 ABG pO2 ABG HCO3 Potassium 5.4 H Chloride 110 H Carbon Dioxide 15 L BUN 83 H Creatinine 6.79 H Glucose 167 H POC Glucose (mg/dL) 208 H Hemoglobin A1c Calcium AST 66 H Total Protein Albumin Urine Appearance Urine Protein Urine Blood Ur Leukocyte Esterase Urine RBC Urine WBC Urine WBC Clumps Urine Mucus Urine Opiates Screen U Benzodiazepines Scrn 09/25/18 09/25/18 09/25/18 06:04 06:17 11:30 WBC RBC Hgb MCV MCHC Plt Count Neutrophils # Lymphocytes # PT INR ABG pH ABG pCO2 ABG pO2 ABG HCO3 Potassium Chloride Carbon Dioxide BUN Creatinine Glucose POC Glucose (mg/dL) 176 H 151 H Hemoglobin A1c 7.7 H Calcium AST Total Protein Albumin Urine Appearance Urine Protein Urine Blood Ur Leukocyte Esterase Urine RBC Urine WBC Urine WBC Clumps Urine Mucus Urine Opiates Screen U Benzodiazepines Scrn 09/25/18 09/25/18 09/25/18 15:30 16:36 18:38 WBC RBC Hgb MCV MCHC Plt Count Neutrophils # Lymphocytes # PT INR ABG pH ABG pCO2 ABG pO2 ABG HCO3 Potassium 6.3 H* Chloride 111 H Carbon Dioxide 16 L BUN 94 H Creatinine 5.80 H Glucose 141 H POC Glucose (mg/dL) 133 H Hemoglobin A1c Calcium 8.2 L AST Total Protein Albumin Urine Appearance Cloudy H Urine Protein 1+ H Urine Blood Moderate H Ur Leukocyte Esterase Moderate H Urine RBC >182 H Urine WBC 89 H Urine WBC Clumps Moderate H Urine Mucus Rare H Urine Opiates Screen Detected H U Benzodiazepines Scrn Detected H 09/25/18 09/26/18 09/26/18 20:30 05:23 05:23 WBC 11.0 H RBC 3.66 L Hgb 11.3 L MCV 103.8 H MCHC 29.7 L Plt Count 143 L Neutrophils # 9.0 H Lymphocytes # 0.8 L PT INR ABG pH ABG pCO2 ABG pO2 ABG HCO3 Potassium 5.5 H Chloride 111 H Carbon Dioxide 17 L BUN 95 H Creatinine 4.87 H Glucose 176 H POC Glucose (mg/dL) 136 H Hemoglobin A1c Calcium 8.1 L AST 49 H Total Protein 5.9 L Albumin 3.0 L Urine Appearance Urine Protein Urine Blood Ur Leukocyte Esterase Urine RBC Urine WBC Urine WBC Clumps Urine Mucus Urine Opiates Screen U Benzodiazepines Scrn 09/26/18 09/26/18 09/26/18 06:15 09:53 10:32 WBC RBC Hgb MCV MCHC Plt Count Neutrophils # Lymphocytes # PT 12.1 H INR 1.2 H ABG pH 7.22 L ABG pCO2 48 H ABG pO2 81 L ABG HCO3 20 L Potassium Chloride Carbon Dioxide BUN Creatinine Glucose POC Glucose (mg/dL) 169 H Hemoglobin A1c Calcium AST Total Protein Albumin Urine Appearance Urine Protein Urine Blood Ur Leukocyte Esterase Urine RBC Urine WBC Urine WBC Clumps Urine Mucus Urine Opiates Screen U Benzodiazepines Scrn 09/26/18 11:46 WBC RBC Hgb MCV MCHC Plt Count Neutrophils # Lymphocytes # PT INR ABG pH ABG pCO2 ABG pO2 ABG HCO3 Potassium Chloride Carbon Dioxide BUN Creatinine Glucose POC Glucose (mg/dL) 180 H Hemoglobin A1c Calcium AST Total Protein Albumin Urine Appearance Urine Protein Urine Blood Ur Leukocyte Esterase Urine RBC Urine WBC Urine WBC Clumps Urine Mucus Urine Opiates Screen U Benzodiazepines Scrn - Diagnostic Findings Chest x-ray: report reviewed, image reviewed Additional studies: Abdominal ultrasound Assessment and Plan Plan: Assessment: #1. Altered mental status, increased lethargy, and blood gas showed mixed respiratory and metabolic acidosis. Chest x-ray showed left basilar atelectasis or infiltrate #2. Acute kidney injury, likely related to acute tubular necrosis. Nephrology is following, hemodialysis treatment has been initiated after aggressive IV hydration #3. Hyperkalemia #4. History of nephrectomy #5. Hypertension #6. Non-anion gap metabolic acidosis related to renal failure #7. History of deep venous thrombosis, on Eliquis #8. History of chronic bronchial asthma #9. Possible urinary tract infection #10. Chronic pain syndrome Plan: Continue on BiPAP support with pressures of 12 and 6 and 40%. Patient is arousable to verbal stimuli, she does not appear to be in any acute distress, still somnolent. Left unstimulated. She is getting ready to start her first hemodialysis treatment, will repeat a blood gas after that. The blood gas is poor, patient will be transferred to the intensive care unit for further monitoring. Continue current antibiotic coverage, current medical treatment. She is starting to produce urine, she is nonoliguric. No acute respiratory distress. Her medications remain on hold, she continues on IV bicarb drip. I performed a history & physical examination of the patient and discussed their management with my nurse practitioner, Lashawn Juarez. I reviewed the nurse practitioner's note and agree with the documented findings and plan of care. Lung sounds are diminished breath sounds. The findings and the impression was discussed with the patient. I attest to the documentation by the nurse practitioner. Time with Patient: Greater than 30
[2018-09-26] MEDS: DEXTROSE 5% IN WATER 1,000 ML with SODIUM BICARB (1 MEQ/ML) 150 ML IV SCH (19:42)
[2018-09-26 20:20] LABS: Glucose,Whole Blood 134 mg/dL (75-99)
[2018-09-26] MEDS ORDERED: ENOXAPARIN 30 MG/0.3 ML SYRINGE SQ SCH (21:00)
[2018-09-26] MEDS: INSULIN DETEMIR (LEVEMIR) 100 UNIT/ML SYR SQ SCH (21:04)
[2018-09-26 22:08] LABS: ABG Base Excess -3.3 mmol/L; ABG HCO3 23 mmol/L (21-25); ABG Oxygen Saturation 99.1 % (94-97); ABG PCO2 49 mmHg (35-45); ABG PH 7.29 (7.35-7.45); ABG PO2 133 mmHg (83-108); ABG TCO2 25 mmol/L (19-24)
[2018-09-26] MEDS: hydrALAZINE HCL 20 MG/ML 1 ML VIAL IVP PRN (22:36)
--- NOTE | 2018-09-26 23:44 | PN ---
PROGRESS NOTE Patient is seen for followup for acute kidney injury. She was admitted with a serum creatinine of about 6.79. The patient has a solitary kidney. She has had good urine output. Serum creatinine has decreased to 4.87. The patient is maintained on IV fluids. However, she remains encephalopathic and her mentation is actually worse today as compared to yesterday. Therefore, I will proceed with the dialysis. Family has been talked through regarding possibility of dialysis. PHYSICAL EXAMINATION: Patient was seen this morning. She was comfortable, not in any acute distress. She did open her eyes and answer to simple questions and went back to sleep. At other times, patient was not able to answer questions appropriately. Blood pressure this morning was 122/58, heart rate of 70 per minute. She is afebrile. Examination of the heart S1, S2. Examination of lungs bilateral breath sounds are heard. ABDOMEN: Soft morbidly obese. Examination of lower extremities shows no evidence of edema. MOGUL OPERATOR exam shows patient is moving all 4 extremities. She has been confused at times. She is lethargic and falls asleep frequently and easily. LABS: Show sodium 138, potassium 5.5, chloride 111, CO2 is 17, BUN 95, serum creatinine 4.87, hemoglobin 11.3 g/dL. ASSESSMENT: 1. Acute kidney injury, acute tubular necrosis with solitary kidney, currently improving. In view off worsening mentation, I will proceed with dialysis. Hopefully the patient will not need any further treatments. She also has a positive drug screen for benzos and opiates on admission. This should also improved post dialysis. 2. Hyperkalemia associated with acute kidney injury and expect improvement with dialysis. 3. Metabolic acidosis secondary to advanced renal failure, maintained on IV bicarb. 4. Encephalopathy secondary to uremia as well as an drug effect from opiates and benzos with advanced renal failure. 5. History of nephrectomy. PLAN: Consult vascular surgery for dialysis catheter placement. Hold off on the Eliquis. Start Lovenox after catheter is placed and we will plan for 1st treatment of hemodialysis today. Continue to avoid nephrotoxic agents. Hopefully, patient will not need any further dialysis. MMODL / IJN: [id number] /
[2018-09-27 00:04] LABS: Hepatitis A Antibody IgM Non-Reactive (Non-Reactive); Hepatitis B Core IgM Non-Reactive (Non-Reactive)
[2018-09-27] MEDS: hydrALAZINE HCL 20 MG/ML 1 ML VIAL IVP PRN ×5 (03:49→21:15)
[2018-09-27] MEDS: PANTOPRAZOLE 40 MG TABLET PO SCH ×2 (03:53→09:39)
[2018-09-27 06:16] LABS: Glucose,Whole Blood 202 mg/dL (75-99)
[2018-09-27 06:32] LABS: Basophils % (A) 0 %; Eosinophils # (A) 0.1 k/uL (0-0.7); Eosinophils % (A) 1 %; HCT 43.5 % (34.0-46.0); HGB 13.4 gm/dL (11.4-16.0); Lymphocytes # (A) 0.6 k/uL (1.0-4.8); Lymphocytes % (A) 5 %; MCH 30.5 pg (25.0-35.0); MCHC 30.9 g/dL (31.0-37.0); Mean Platelet Volume 8.6; Monocytes # (A) 0.8 k/uL (0-1.0); Monocytes % (A) 6 %; Neutrophils # (A) 10.4 k/uL (1.3-7.7); Neutrophils % (A) 87 %; Platelet Count 155 k/uL (150-450); RBC 4.41 m/uL (3.80-5.40); RDW 12.7 % (11.5-15.5)
[2018-09-27] MEDS: DEXTROSE 5% IN WATER 1,000 ML with SODIUM BICARB (1 MEQ/ML) 150 ML IV SCH ×2 (06:34→19:53)
[2018-09-27] MEDS: INSULIN ASPART (NovoLOG) 100 UNIT/ML VIAL SQ SCH ×3 (06:35→17:26)
[2018-09-27 06:42] LABS: MCV 98.7 fL (80.0-100.0)
[2018-09-27 06:43] LABS: Albumin 3.7 g/dL (3.5-5.0); Calcium 9.1 mg/dL (8.4-10.2); Potassium 4.4 mmol/L (3.5-5.1); Total Bilirubin 0.8 mg/dL (0.2-1.3); Total Protein 6.9 g/dL (6.3-8.2)
--- NOTE | 2018-09-27 08:49 | IR ---
EXAMINATION TYPE: IR cvc insert non tunneled DATE OF EXAM: 09/26/2018 COMPARISON: NONE HISTORY: Fluoroscopy time. Fluoroscopy was provided to the referring clinician. 0.6 minutes of fluoroscopy submitted.
[2018-09-27] MEDS: MONTELUKAST 10 MG TAB PO SCH (09:39)
[2018-09-27] MEDS: hydrALAZINE HCL 50 MG TAB PO SCH ×2 (09:39→19:50)
[2018-09-27] MEDS: DOCUSATE 100 MG CAP PO SCH ×2 (09:39→19:50)
[2018-09-27] MEDS: SODIUM BICARBONATE TAB 650 MG TAB PO SCH (09:40)
[2018-09-27] MEDS: ATENOLOL 12.5 MG TAB PO SCH (09:40)
[2018-09-27 11:37] LABS: Glucose,Whole Blood 211 mg/dL (75-99)
--- NOTE | 2018-09-27 11:43 | CDI ---
Documentation Clarification Form Date: 09/27/2018 11:16:37 AM From: Sharmaine Mckenzie RN, CCDS Admit Date: 09/24/2018 5:15:00 PM Patient Name: Bushra Butts Visit Number: [id number] Discharge Date: ATTENTION: The Clinical Documentation Specialists (CDI) and [facility] Coding Staff appreciate your assistance in clarifying documentation. Please respond to the clarification below the line at the bottom and electronically sign. The CDI & [facility] Coding staff will review the response and follow-up if needed. Please note: Queries are made part of the Legal Health Record. If you have any questions, please contact the author of this message via ITS. Dr. Lelo Michelle Altered Mental Status was documented in the Emergency Department evaluation, Consults, H/P and ongoing progress notes. History/Risk Factors: Asthma, COPD, Diabetes Mellitus, hypertension Clinical Indicators: 63-year -old female present with altered mental status. She was seen at [facility] and was give Narcan. She present with abnormal labs. Vital Signs: 129/47 67 18 98.8 09/26/18 Nephrology progress note: Encephalopathy secondary to uremia as well as drug effect from opiates and benzo with advanced renal failure Labs: WBC 15.2, BUN 83, CR 6.79; UA Ur Leukocyte Esterase Moderate, wbc 89; Urine drug screen Positive for Opiates and Benzos Chest x ray: Left basilar atelectasis or infiltrate. Correlate for pulmonary arterial hypertension. CT Brain: There is hypodensity involving the posterior right parietal lobe. Correlate for possible subacute or chronic infarct. No acute intracranial hemorrhage Treatment: Neurovascular check per protocol Rocephin IV Bicarbonate PO Emergent dialysis Monitor Labs In your professional opinion, please further specify the type of Encephalopathy if known. Metabolic Encephalopathy Toxic Encephalopathy Other condition (please specify Unable to determine (Last Revision: November 2017) metabolic and toxic encephalopathy MTDD
--- NOTE | 2018-09-27 11:51 | P.PN ---
Subjective Progress Note Date: 09/27/18 This is a 63-year-old female patient presented to the hospital with altered mental status changes. Patient currently follows with pain clinic. According to records and patient's daughter at bedside patient took 2 Percocet along with 2 MS Contin two night ago. Upon waking patient was increasingly weak. Patient' s family urged patient to go to hospital for further evaluation. Patient went to [facility] in which she received Narcan. She also on acute renal failure with creatinine of 6.79. Patient was then transferred to [facility] for further evaluation. She denies any recent illness with diarrhea or emesis. Patient does reports she continue meds as prescribed. Patient has past medical history of asthma, cancer, COPD, diabetes mellitus, DVT which she takes eliquis, hypertension, renal disease, Rahul filter and chronic pain from arthritis. During examination patient was alert and oriented 3 but very drowsy. Patient would often fall asleep during conversation. Patient has not received any narcotics for 24 hours. Patient's daughter at bedside also reports that patient has been delusional lately. On examination patient does follow commands and has equal strength throughout all extremities. No facial droop noted. Speech is clear. At this time drug screen has been ordered. CT of head ordered. Dr. Mitchell has been consulted for nephrology. All narcotics currently on hold. EKG ordered. Chest x-ray ordered. Urinary analysis and culture ordered. Patient denies any chest pain. Patient is complaining of nonproductive cough. Patient denies nausea vomiting or diarrhea. Patient denies any urinary burning or frequency. on 09/26/2018 patient more lethargic and confused today. Patient does wake up and follows commands. Discussed case with nephrology services planning to place a dialysis catheter and emergent dialysis due to increased confusion. Creatinine is trending down. Per nephrology will not likely require chronic dialysis. Patient not taking pills. Will switch patient to Lovenox 1 mg/kg pharmacy to dose for DVT treatment. Medication to be given after hemodialysis catheter placed. Also discussed with critical care services. Consult placed. ABG's ordered. On 09/27/2018 patient appears more alert and less sleepy today. Patient does answer questions all appropriately. Patient underwent emergent dialysis yesterday. Patient's creatinine improving to 1.92. At this time patient denies any nausea vomiting or diarrhea. Patient denies any urinary burning or frequency. Patient remains on Lovenox 1 mg/kg pharmacy dosing. Dr. Bhakta per critical care and nephrology services are following Objective - Vital Signs Vital signs: Vital Signs Temp 97.9 F 09/27/18 08:00 Pulse 87 09/27/18 08:45 Resp 18 09/27/18 11:11 BP 175/76 09/27/18 08:00 Pulse Ox 98 09/27/18 08:00 Intake & Output 09/26/18 09/27/18 09/27/18 18:59 06:59 18:59 Intake Total 350 600 0 Output Total 1350 950 Balance 350 -750 -950 Weight 138 kg Intake: Intake, IV Titration 350 600 Amount Dextrose 5% in Water 1, 350 600 000 ml @ 75 mls/hr IV . [id number] HUNG with Sodium Bicarb (1 Meq/ml) 150 ml Rx#:[id number] Oral 0 0 Output: Urine 1350 950 Other: Voiding Method Indwelling Catheter Indwelling Catheter Indwelling Catheter - Exam Head normocephalic Neck supple Lungs clear to auscultation bilaterally no wheezing or crackles Heart regular rate and rhythm S1-S2, no rub or gallop Abdomen is soft nontender nondistended positive bowel sounds no hepatosplenomegaly Extremities no edema Neuro alert and orientated to 3. Patient is very drowsy but arousable. Patient does have equal strength throughout all extremities. No facial droop noted. Speech is clear. - Labs CBC & Chem 7: 09/27/18 06:11 09/27/18 06:11 Labs: Abnormal Lab Results - Last 24 Hours (Table) 09/26/18 09/26/18 09/26/18 Range/Units 11:46 16:44 20:19 WBC (3.8-10.6) k/uL MCHC (31.0-37.0) g/dL Neutrophils # (1.3-7.7) k/uL Lymphocytes # (1.0-4.8) k/uL ABG pH (7.35-7.45) ABG pCO2 (35-45) mmHg ABG pO2 (83-108) mmHg ABG Total CO2 (19-24) mmol/L ABG O2 Saturation (94-97) % BUN (7-17) mg/dL Creatinine (0.52-1.04) mg/dL Glucose (74-99) mg/dL POC Glucose (mg/dL) 180 H 158 H 134 H (75-99) mg/dL AST (14-36) U/L 09/26/18 09/27/18 09/27/18 Range/Units 22:01 06:11 06:11 WBC 12.0 H (3.8-10.6) k/uL MCHC 30.9 L (31.0-37.0) g/dL Neutrophils # 10.4 H (1.3-7.7) k/uL Lymphocytes # 0.6 L (1.0-4.8) k/uL ABG pH 7.29 L (7.35-7.45) ABG pCO2 49 H (35-45) mmHg ABG pO2 133 H (83-108) mmHg ABG Total CO2 25 H (19-24) mmol/L ABG O2 Saturation 99.1 H (94-97) % BUN 56 H (7-17) mg/dL Creatinine 1.92 H (0.52-1.04) mg/dL Glucose 237 H (74-99) mg/dL POC Glucose (mg/dL) (75-99) mg/dL AST 41 H (14-36) U/L 09/27/18 09/27/18 Range/Units 06:15 11:35 WBC (3.8-10.6) k/uL MCHC (31.0-37.0) g/dL Neutrophils # (1.3-7.7) k/uL Lymphocytes # (1.0-4.8) k/uL ABG pH (7.35-7.45) ABG pCO2 (35-45) mmHg ABG pO2 (83-108) mmHg ABG Total CO2 (19-24) mmol/L ABG O2 Saturation (94-97) % BUN (7-17) mg/dL Creatinine (0.52-1.04) mg/dL Glucose (74-99) mg/dL POC Glucose (mg/dL) 202 H 211 H (75-99) mg/dL AST (14-36) U/L Microbiology - Last 24 Hours (Table) 09/25/18 08:38 Urine Culture - Final Urine,Catheterized 09/25/18 12:09 Blood Culture - Preliminary Blood No Growth after 24 hours Assessment and Plan Assessment: 1. Altered mental status changes likely related to encephalopathy secondary to uremia as well as drug effect from opiotes and benzos with advanced renal failure. Questionable medication overdose. Per patient's family and nursing staff all pills correctly accounted for. Drug screen has been ordered. head CT completed showing motion limited exam. There is hypodensity involving the posterior right parietal lobe. Correlate for possible subacute or chronic infarct no mass effect or midline shift. No acute intracranial hemorrhage, mass effect or midline shift. Blood gases completed showing mixed respiratory metabolic acidosis. Patient currently on sodium bicarb drip. 2. Acute kidney injury and acute tubular necrosis with solitary kidney. Creatinine 6.79 and bun 83. Potassium also elevated at 5.4. Patient denies any recent illness. Dr. Mitchell has been consulted for nephrology services. Ultrasound of kidneys and bladder ordered per nephrology. Normal saline at 75. Indwelling Enriquez catheter in place. ultrasound of kidneys renal and bladder completed showing nondiagnostic exam. Discussed case with Dr. Flor per nephrology. Patient underwent emergent hemodialysis yesterday with placement of catheter per Dr. Durant. Creatinine is continue to trend down to 1.9 to 3. Leukocytosis. White blood cell elevated at 15.4. Chest x-ray, urinary analysis and blood culture ordered. Patient has been afebrile. Dr. Lance has been consulted for critical care and pulmonary management. Patient remains on Rocephin for IV antibiotics for possible pneumonia and/or UTI. White blood cells are trending down at 12.0 4. History of DVT. Eliquis has been resumed to be restarted after head CT completed. she not tolerating pills at this time. Discussed with oncology will switch patient over to Lovenox 1 mg/kg per pharmacy to dose due to renal dosing 5. Diabetes mellitus. Home insulin ordered for sliding scale coverage. Hemoglobin A1c ordered 6. History of COPD 7. History of essential hypertension. Multiple blood pressure patient currently on hold due to acute kidney injury. Patient also with blood pressure systolic in the 90s 8. History of asthma 9. History of arthritis 10. History of nephrectomy 11. Metabolic acidosis secondary to advanced renal failure continue IV bicarb at this time per nephrology DVT prophylaxis Lovenox. GI prophylaxis Protonix nephrology and critical care following I performed an examination of the patient and discussed their management with the Nurse Practitioner. I have reviewed the Nurse Practitioner's notes and agree with the documented findings and plan of care
--- NOTE | 2018-09-27 12:03 | CONS ---
CONSULTATION This is a 63-year-old female. I was consulted for placement of urgent dialysis catheter because of high potassium and creatinine. Patient has been admitted with history of mental status change and patient is worked up for a CT scan of the head which showed no intracranial bleed. MEDICAL HISTORY: Patient has history of asthma, cancer, COPD, diabetes mellitus, DVT and she is on Eliquis, history of hypertension, and patient had a Warren filter placed in the past. PHYSICAL EXAMINATION: Patient was seen. Patient is very short of breath. She cannot lay flat. Patient is also on BiPAP. Chest has a few crackles bilateral, abdomen is protuberant. The patient has a super obesity. Femorals are 1+ bilateral. PLAN: Since patient can't lie flat, we will place a temporary the catheter then we elect will proceed to place a permanent right IJ when patient is stabilized. Risks and complications discussed, GLENNA / CAITLINN: [id number] /
--- NOTE | 2018-09-27 14:39 | PCN ---
PROCEDURE NOTE PREOP: Acute chronic failure. PROCEDURE: Ultrasound-guided IV with IV sedation. Dialysis catheter placed to the right femoral approach. Patient was brought to the photo lab manager. The patient cannot lay flat. The patient is on BiPAP. Right groin was prepped and draped in a sterile manner. 1% lidocaine plain infiltrated. Ultrasound-guided micropuncture introduced into the right femoral vein. Micropuncture guidewire was passed and 4-Zimbabwean dilator advanced on top of the guidewire. Then we passed a guidewire into the first part in the inferior vena cava and sheath. Dilator was advanced and sheath was advanced on top of the guidewire. Then we placed an 18 cm dialysis catheter. Sheath was removed. Pressure was held. Secured with 3-0 nylon. Dressing applied. Patient tolerated the procedure well. There was a decent flow and flushed with heparin saline and hep-locked. MMCORIE / CAITLINN: [id number] /
[2018-09-27 16:47] LABS: Glucose,Whole Blood 163 mg/dL (75-99)
--- NOTE | 2018-09-27 16:50 | P.PN ---
Subjective Progress Note Date: 09/27/18 Principal diagnosis: Acute hypercapnic respiratory failure with lethargy This is a 63-year-old white female patient of Dr. Michelle, with a past medical history of asthma, diabetes mellitus type 2, hypertension, chronic pain, history of DVT on chronic anticoagulation, obstructive sleep apnea on CPAP. Patient was brought into the hospital on O2 to 2018 for evaluation of altered mental status changes, weakness. Patient presented to the [facility], patient is on MS Contin, and Percocet for chronic pain , given a dose of Narcan and was transferred to for further evaluation, she was found to be in acute kidney failure with a creatinine of 6.79. Her previous creatinine on 05/23/2017 was 1.36. Denied any recent fever, or chills, no nausea, vomiting or diarrhea. Denied any urinary symptoms. She does have a solitary kidney. Patient was on George inhibitors at home, no history of NSAID use prior to admission. Brain CT showed hypodensity involving the posterior right parietal lobe possibly related to subacute or chronic infarct, no acute intracranial process. Initial chest x-ray showed markedly limited exam due to hypoventilatory lungs, central venous congestion, and prominence of the right hilum. Patient was hydrated, she was given oral sodium bicarb replacements and was switched to IV bicarb infusion. Ultrasound of the abdomen was nondiagnostic. Blood work showed white blood cell count of 15.2, hemoglobin of 12.8, sodium was 139, potassium 6.3, chloride was 111, CO2 was 16, BUN was 94, creatinine was 5.8, moderate leuks, and WBCs of 89. Drug screen was positive for opiates and benzodiazepine. She was started on antibiotic coverage in the form of Rocephin, and IV hydration, and her renal profile improved some, with BUN at 95 and creatinine of 4.87 on today's labs. However her mentation was failing to improve, patient was persistently very lethargic, and apparently this morning she was quite somnolent. And this consult was initiated, follow-up chest x-ray showed left basilar atelectasis or infiltrate, pulmonary arterial hypertension, and adenopathy or mass in the right hilum was not excluded. Blood gas was obtained, and showed pO2 of 81, pCO2 is 48, and pH of 7.22, consistent with a combined metabolic, and respiratory acidosis. Patient does wear CPAP at home, based on BiPAP support at pressures of 12/6, and FiO2 of 40%. Upon my evaluation patient is responsive to verbal stimuli, and is able to provide short answers. Does not appear to be in any apparent distress, patient cannula for hemodialysis catheter insertion today, and hemodialysis will be initiated. The patient was seen today 09/27/2017 in follow-up on the selective care unit. She is more awake and alert today as compared to yesterday. She did utilize the BiPAP last evening. She denies any worsening shortness of breath, cough or congestion at this time. Rectal maintaining good O2 saturations in the upper 90s on 4 L/m per nasal cannula. She's been afebrile. Somewhat hypertensive. Blood and urine cultures reveal no growth. White count 12.0. Hemoglobin 13.4. Creatinine 1.92. Bicarb up to 24. She has been maintained on bronchodilators , ceftriaxone, D5W with 3 A of bicarb at 75 ML's per hour. Objective - Vital Signs Vital signs: Vital Signs Temp 98.1 F 09/27/18 12:00 Pulse 79 09/27/18 12:00 Resp 20 09/27/18 15:54 BP 177/100 09/27/18 13:00 Pulse Ox 98 09/27/18 12:00 Intake & Output 09/26/18 09/27/18 09/27/18 18:59 06:59 18:59 Intake Total 350 600 250 Output Total 1350 3350 Balance 350 -750 -3100 Weight 138 kg Intake: Intake, IV Titration 350 600 Amount Dextrose 5% in Water 1, 350 600 000 ml @ 75 mls/hr IV . [id number] HUNG with Sodium Bicarb (1 Meq/ml) 150 ml Rx#:[id number] Oral 0 250 Output: Urine 1350 3350 Other: Voiding Method Indwelling Catheter Indwelling Catheter Indwelling Catheter - Exam GENERAL EXAM: Awake alert, obese 63-year-old female, does wake up to verbal stimulation, and is able to provide short answers comfortable in no apparent distress. HEAD: Normocephalic/atraumatic. EYES: Normal reaction of pupils, equal size. Conjunctiva pink, sclera white. NOSE: Clear with pink turbinates. THROAT: No erythema or exudates. NECK: No masses, no JVD, no thyroid enlargement, no adenopathy. CHEST: No chest wall deformity. Symmetrical expansion. LUNGS: Equal air entry with a few scattered rhonchi, diminished breath sounds at the bases, no dullness, no wheezing CVS: Regular rate and rhythm, normal S1 and S2, no gallops, no murmurs, no rubs ABDOMEN: Soft, nontender. No hepatosplenomegaly, normal bowel sounds, no guarding or rigidity. EXTREMITIES: No clubbing, no edema, no cyanosis, 2+ pulses and upper and lower extremities. MUSCULOSKELETAL: Muscle strength and tone normal. SPINE: No scoliosis or deformity SKIN: No rashes CENTRAL NERVOUS SYSTEM: Alert and oriented -3. PSYCHIATRIC: Alert and oriented -3. - Labs CBC & Chem 7: 09/27/18 06:11 09/27/18 06:11 Labs: Abnormal Lab Results - Last 24 Hours (Table) 09/26/18 09/26/18 09/26/18 Range/Units 16:44 20:19 22:01 WBC (3.8-10.6) k/uL MCHC (31.0-37.0) g/dL Neutrophils # (1.3-7.7) k/uL Lymphocytes # (1.0-4.8) k/uL ABG pH 7.29 L (7.35-7.45) ABG pCO2 49 H (35-45) mmHg ABG pO2 133 H (83-108) mmHg ABG Total CO2 25 H (19-24) mmol/L ABG O2 Saturation 99.1 H (94-97) % BUN (7-17) mg/dL Creatinine (0.52-1.04) mg/dL Glucose (74-99) mg/dL POC Glucose (mg/dL) 158 H 134 H (75-99) mg/dL AST (14-36) U/L 09/27/18 09/27/18 09/27/18 Range/Units 06:11 06:11 06:15 WBC 12.0 H (3.8-10.6) k/uL MCHC 30.9 L (31.0-37.0) g/dL Neutrophils # 10.4 H (1.3-7.7) k/uL Lymphocytes # 0.6 L (1.0-4.8) k/uL ABG pH (7.35-7.45) ABG pCO2 (35-45) mmHg ABG pO2 (83-108) mmHg ABG Total CO2 (19-24) mmol/L ABG O2 Saturation (94-97) % BUN 56 H (7-17) mg/dL Creatinine 1.92 H (0.52-1.04) mg/dL Glucose 237 H (74-99) mg/dL POC Glucose (mg/dL) 202 H (75-99) mg/dL AST 41 H (14-36) U/L 09/27/18 Range/Units 11:35 WBC (3.8-10.6) k/uL MCHC (31.0-37.0) g/dL Neutrophils # (1.3-7.7) k/uL Lymphocytes # (1.0-4.8) k/uL ABG pH (7.35-7.45) ABG pCO2 (35-45) mmHg ABG pO2 (83-108) mmHg ABG Total CO2 (19-24) mmol/L ABG O2 Saturation (94-97) % BUN (7-17) mg/dL Creatinine (0.52-1.04) mg/dL Glucose (74-99) mg/dL POC Glucose (mg/dL) 211 H (75-99) mg/dL AST (14-36) U/L Microbiology - Last 24 Hours (Table) 09/25/18 12:09 Blood Culture - Preliminary Blood No Growth after 48 hours 09/25/18 08:38 Urine Culture - Final Urine,Catheterized Assessment and Plan Assessment: Assessment: #1. Altered mental status, increased lethargy, and blood gas showed mixed respiratory and metabolic acidosis. Chest x-ray showed left basilar atelectasis or infiltrate #2. Acute kidney injury, likely related to acute tubular necrosis. Nephrology is following, hemodialysis treatment has been initiated after aggressive IV hydration #3. Hyperkalemia #4. History of nephrectomy #5. Hypertension #6. Non-anion gap metabolic acidosis related to renal failure #7. History of deep venous thrombosis, on Eliquis #8. History of chronic bronchial asthma #9. Possible urinary tract infection #10. Chronic pain syndrome Plan: The patient was seen and evaluated by Dr. Yanez. She is much more awake and alert today. Bicarb has improved. She did utilize the BiPAP last evening. Urine output adequate. We'll continue with her current treatment plan for now. Increase her activity as tolerated. We'll continue to follow. I, the cosigning physician, performed a history & physical examination of the patient. Lungs sounds are clear. Maintaining good O2 saturations in the 90s on 4 L/m per nasal cannula alternating with BiPAP. I discussed the assessment and plan of care with my nurse practitioner, Breana Montano. I attest to the above note as dictated by her.
[2018-09-27] MEDS: cloNIDine HCL 0.1 MG TAB PO SCH (17:26)
[2018-09-27] MEDS: SODIUM CHLORIDE 0.45% 1,000 ML IV SCH (20:13)
[2018-09-27 20:43] LABS: Glucose,Whole Blood 180 mg/dL (75-99)
[2018-09-27] MEDS ORDERED: ENOXAPARIN 150 MG/ML SYRINGE SQ SCH (21:00)
[2018-09-27] MEDS: INSULIN DETEMIR (LEVEMIR) 100 UNIT/ML SYR SQ SCH (21:01)
--- NOTE | 2018-09-27 23:18 | PN ---
PROGRESS NOTE Patient is seen for followup for acute kidney injury. The patient did have a dialysis treatment yesterday. She continues to have good urine output. Mentation is significantly improved. There are no plans on dialysis today. The patient continues to have good urine output. Her serum creatinine is at 1.9 and 2 mg/dL. PHYSICAL EXAMINATION: Patient is awake. Family is present at bedside. Blood pressure this morning was elevated at 175/76, heart rate of 85 per minute. Patient is afebrile. Examination of the heart S1, S2. Examination of the lungs, decreased breath sounds at bases. Abdomen is soft, nontender. Exam of lower extremities shows trace edema bilaterally. 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 LABS: Show sodium of 141, potassium 4.4, chloride 106, BUN 56, serum creatinine 1.92, hemoglobin 13.4 g/dL. ASSESSMENT: 1. Acute kidney injury, acute tubular necrosis, currently nonoliguric and improving, status post 1 treatment of hemodialysis today which was mainly secondary to altered mentation and worsening mentation. I will hold off on any further dialysis and we will continue to monitor the urine output and maintain patient on fluid. The rate will be decreased and patient is encouraged to increase her oral intake. There are no nephrotoxic agents on board at this time. 2. Hypertension, currently uncontrolled. The patient is maintained on oral hydralazine and Tenormin. At home she was on DEREK inhibitors and chlorthalidone. I will increase the dose of atenolol to 25 mg. Patient is also on clonidine and since it was not initially started, she may have some degree of rebound hypertension. 3. Metabolic acidosis, currently improved. I will discontinue the sodium bicarb. 4. History of deep venous thrombosis, maintained on Lovenox. PLAN: Discontinue the oral sodium bicarb and the IV bicarb as well. I will decrease the fluids to 50 mL an hour and increase the Tenormin to 25 mg daily. Repeat labs in a.m. MMODL / IJN: [id number] /
[2018-09-28] MEDS: hydrALAZINE HCL 20 MG/ML 1 ML VIAL IVP PRN (00:33)
[2018-09-28 07:19] LABS: Basophils % (A) 0 %; Eosinophils # (A) 0.1 k/uL (0-0.7); Eosinophils % (A) 1 %; HCT 41.6 % (34.0-46.0); HGB 13.1 gm/dL (11.4-16.0); Lymphocytes # (A) 0.8 k/uL (1.0-4.8); Lymphocytes % (A) 6 %; MCH 30.5 pg (25.0-35.0); MCHC 31.3 g/dL (31.0-37.0); MCV 97.4 fL (80.0-100.0); Mean Platelet Volume 7.9; Monocytes # (A) 0.8 k/uL (0-1.0); Monocytes % (A) 6 %; Neutrophils # (A) 11.9 k/uL (1.3-7.7); Neutrophils % (A) 86 %; Platelet Count 170 k/uL (150-450); RBC 4.28 m/uL (3.80-5.40); RDW 12.7 % (11.5-15.5); WBC 13.9 k/uL (3.8-10.6)
[2018-09-28 07:46] LABS: Albumin 3.4 g/dL (3.5-5.0); Calcium 9.2 mg/dL (8.4-10.2); Potassium 4.2 mmol/L (3.5-5.1); Total Bilirubin 1.2 mg/dL (0.2-1.3); Total Protein 6.5 g/dL (6.3-8.2)
[2018-09-28] MEDS: INSULIN ASPART (NovoLOG) 100 UNIT/ML VIAL SQ SCH ×4 (08:40→21:49)
[2018-09-28] MEDS: hydrALAZINE HCL 50 MG TAB PO SCH ×2 (08:50→21:49)
[2018-09-28] MEDS: MONTELUKAST 10 MG TAB PO SCH (08:50)
[2018-09-28] MEDS: cloNIDine HCL 0.1 MG TAB PO SCH ×2 (08:50→21:48)
[2018-09-28] MEDS: DOCUSATE 100 MG CAP PO SCH ×2 (08:52→21:40)
[2018-09-28] MEDS ORDERED: ATENOLOL 25 MG TAB PO SCH ×2 (09:00→21:00)
[2018-09-28] MEDS ORDERED: LISINOPRIL 10 MG TAB PO SCH (09:30)
--- NOTE | 2018-09-28 10:43 | P.PN ---
Subjective Progress Note Date: 09/28/18 This is a 63-year-old female patient presented to the hospital with altered mental status changes. Patient currently follows with pain clinic. According to records and patient's daughter at bedside patient took 2 Percocet along with 2 MS Contin two night ago. Upon waking patient was increasingly weak. Patient' s family urged patient to go to hospital for further evaluation. Patient went to [facility] in which she received Narcan. She also on acute renal failure with creatinine of 6.79. Patient was then transferred to [facility] for further evaluation. She denies any recent illness with diarrhea or emesis. Patient does reports she continue meds as prescribed. Patient has past medical history of asthma, cancer, COPD, diabetes mellitus, DVT which she takes eliquis, hypertension, renal disease, Rahul filter and chronic pain from arthritis. During examination patient was alert and oriented 3 but very drowsy. Patient would often fall asleep during conversation. Patient has not received any narcotics for 24 hours. Patient's daughter at bedside also reports that patient has been delusional lately. On examination patient does follow commands and has equal strength throughout all extremities. No facial droop noted. Speech is clear. At this time drug screen has been ordered. CT of head ordered. Dr. Mitchell has been consulted for nephrology. All narcotics currently on hold. EKG ordered. Chest x-ray ordered. Urinary analysis and culture ordered. Patient denies any chest pain. Patient is complaining of nonproductive cough. Patient denies nausea vomiting or diarrhea. Patient denies any urinary burning or frequency. on 09/26/2018 patient more lethargic and confused today. Patient does wake up and follows commands. Discussed case with nephrology services planning to place a dialysis catheter and emergent dialysis due to increased confusion. Creatinine is trending down. Per nephrology will not likely require chronic dialysis. Patient not taking pills. Will switch patient to Lovenox 1 mg/kg pharmacy to dose for DVT treatment. Medication to be given after hemodialysis catheter placed. Also discussed with critical care services. Consult placed. ABG's ordered. On 09/27/2018 patient appears more alert and less sleepy today. Patient does answer questions all appropriately. Patient underwent emergent dialysis yesterday. Patient's creatinine improving to 1.92. At this time patient denies any nausea vomiting or diarrhea. Patient denies any urinary burning or frequency. Patient remains on Lovenox 1 mg/kg pharmacy dosing. Dr. Bhakta per critical care and nephrology services are following On 09/28/2018 patient is much more awake and alert. Patient is answering questions appropriately. Creatinine improving to 1.38. Patient did have episodes of tachycardia last night with heart rate increasing to 130s. Will consult cardiology services. Patient also having high blood pressure. Blood pressures have been adjusted. We'll continue to monitor. This time patient denies chest pain or shortness breath. Patient denies nausea vomiting or diarrhea. Patient denies any urinary burning or frequency. Objective - Vital Signs Vital signs: Vital Signs Temp 98.9 F 09/28/18 08:48 Pulse 78 09/28/18 08:48 Resp 16 09/28/18 08:48 BP 163/83 09/28/18 10:09 Pulse Ox 98 09/28/18 08:48 Intake & Output 09/27/18 09/28/18 09/28/18 18:59 06:59 18:59 Intake Total 250 Output Total 3350 650 Balance -3100 -650 Weight 132 kg Intake: Oral 250 Output: Urine 3350 650 Other: Voiding Method Indwelling Catheter Indwelling Catheter Indwelling Catheter # Bowel Movements 1 1 - Exam Head normocephalic Neck supple Lungs clear to auscultation bilaterally no wheezing or crackles Heart regular rate and rhythm S1-S2, no rub or gallop Abdomen is soft nontender nondistended positive bowel sounds no hepatosplenomegaly Extremities no edema Neuro alert and orientated to 3. Patient is very drowsy but arousable. Patient does have equal strength throughout all extremities. No facial droop noted. Speech is clear. - Labs CBC & Chem 7: 09/28/18 06:41 09/28/18 06:41 Labs: Abnormal Lab Results - Last 24 Hours (Table) 09/27/18 09/27/18 09/27/18 Range/Units 11:35 16:32 20:42 WBC (3.8-10.6) k/uL Neutrophils # (1.3-7.7) k/uL Lymphocytes # (1.0-4.8) k/uL BUN (7-17) mg/dL Creatinine (0.52-1.04) mg/dL Glucose (74-99) mg/dL POC Glucose (mg/dL) 211 H 163 H 180 H (75-99) mg/dL Albumin (3.5-5.0) g/dL 09/28/18 09/28/18 Range/Units 06:41 06:41 WBC 13.9 H (3.8-10.6) k/uL Neutrophils # 11.9 H (1.3-7.7) k/uL Lymphocytes # 0.8 L (1.0-4.8) k/uL BUN 50 H (7-17) mg/dL Creatinine 1.38 H (0.52-1.04) mg/dL Glucose 174 H (74-99) mg/dL POC Glucose (mg/dL) (75-99) mg/dL Albumin 3.4 L (3.5-5.0) g/dL Microbiology - Last 24 Hours (Table) 09/25/18 12:09 Blood Culture - Preliminary Blood No Growth after 48 hours Assessment and Plan Assessment: 1. Altered mental status changes likely related to encephalopathy secondary to uremia as well as drug effect from opiotes and benzos with advanced renal failure. Questionable medication overdose. Per patient's family and nursing staff all pills correctly accounted for. Drug screen has been ordered. head CT completed showing motion limited exam. There is hypodensity involving the posterior right parietal lobe. Correlate for possible subacute or chronic infarct no mass effect or midline shift. No acute intracranial hemorrhage, mass effect or midline shift. Blood gases completed showing mixed respiratory metabolic acidosis. Patient currently on sodium bicarb drip. 2. Acute kidney injury and acute tubular necrosis with solitary kidney. Creatinine 6.79 and bun 83. Potassium also elevated at 5.4. Patient denies any recent illness. Dr. Mitchell has been consulted for nephrology services. Ultrasound of kidneys and bladder ordered per nephrology. Normal saline at 75. Indwelling Enriquez catheter in place. ultrasound of kidneys renal and bladder completed showing nondiagnostic exam. Discussed case with Dr. Flor per nephrology. Patient underwent emergent hemodialysis yesterday with placement of catheter per Dr. Durant. Creatinine is continue to trend down to 1.38 and bun 50 3. Leukocytosis. White blood cell elevated at 15.4. Chest x-ray, urinary analysis and blood culture ordered. Patient has been afebrile. Dr. Lance has been consulted for critical care and pulmonary management. Patient remains on Rocephin for IV antibiotics for possible pneumonia and/or UTI. White blood cells are trending down at 12.0 4. History of DVT. Eliquis has been resumed to be restarted after head CT completed. she not tolerating pills at this time. Discussed with oncology will switch patient over to Lovenox 1 mg/kg per pharmacy to dose due to renal dosing 5. Diabetes mellitus. Home insulin ordered for sliding scale coverage. Hemoglobin A1c 7.7 6. History of COPD 7. History of essential hypertension. Multiple blood pressure patient currently on hold due to acute kidney injury. Patient also with blood pressure systolic in the 90s. Patient is now having hypertension. Home dose of Catapres has been added. 8. atenolol has been increasedHistory of asthma 9. History of arthritis 10. History of nephrectomy 11. Metabolic acidosis secondary to advanced renal failure continue IV bicarb at this time per nephrology 12. Tachycardia. Heart rate increasing to 130s throughout night. Cardiology services have been consulted DVT prophylaxis Lovenox. GI prophylaxis Protonix nephrology and critical care following reality service is consulted I performed an examination of the patient and discussed their management with the Nurse Practitioner. I have reviewed the Nurse Practitioner's notes and agree with the documented findings and plan of care
--- NOTE | 2018-09-28 11:25 | P.PN ---
Subjective Principal diagnosis: Patient is seen for follow-up for acute kidney injury. She was admitted to the hospital with a serum creatinine of 7 mental status changes. Patient has a solitary kidney with history of left nephrectomy. Patient was dialyzed once. Her renal function has improved significantly. Mentation has improved as well. Currently patient is maintained on IV fluids and she also has an indwelling Enriquez catheter. Serum creatinine is down to 1.3. Vascular surgery is supposed to remove the right femoral Wang catheter. Objective - Vital Signs Vital signs: Vital Signs Temp 98.9 F 09/28/18 08:48 Pulse 76 09/28/18 10:27 Resp 20 09/28/18 10:27 BP 163/83 09/28/18 10:09 Pulse Ox 98 09/28/18 08:48 Intake & Output 09/27/18 09/28/18 09/28/18 18:59 06:59 18:59 Intake Total 250 Output Total 3350 650 Balance -3100 -650 Weight 132 kg Intake: Oral 250 Output: Urine 3350 650 Other: Voiding Method Indwelling Catheter Indwelling Catheter Toilet Indwelling Catheter # Bowel Movements 1 1 - Exam On examination patient is comfortable awake she is not in any acute distress. She is alert and oriented 3. Blood pressure is 163/83 heart rate is 78/m patient is afebrile Examination of the heart S1 and S2 Exertion lungs bilateral breath sounds are heard Abdomen is soft nontender Examination lower extremities shows no significant edema. 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 - Labs CBC & Chem 7: 09/28/18 06:41 09/28/18 06:41 Labs: Abnormal Lab Results - Last 24 Hours (Table) 09/27/18 09/27/18 09/27/18 Range/Units 11:35 16:32 20:42 WBC (3.8-10.6) k/uL Neutrophils # (1.3-7.7) k/uL Lymphocytes # (1.0-4.8) k/uL BUN (7-17) mg/dL Creatinine (0.52-1.04) mg/dL Glucose (74-99) mg/dL POC Glucose (mg/dL) 211 H 163 H 180 H (75-99) mg/dL Albumin (3.5-5.0) g/dL 09/28/18 09/28/18 Range/Units 06:41 06:41 WBC 13.9 H (3.8-10.6) k/uL Neutrophils # 11.9 H (1.3-7.7) k/uL Lymphocytes # 0.8 L (1.0-4.8) k/uL BUN 50 H (7-17) mg/dL Creatinine 1.38 H (0.52-1.04) mg/dL Glucose 174 H (74-99) mg/dL POC Glucose (mg/dL) (75-99) mg/dL Albumin 3.4 L (3.5-5.0) g/dL Microbiology - Last 24 Hours (Table) 09/25/18 12:09 Blood Culture - Preliminary Blood No Growth after 48 hours Assessment and Plan Assessment: 1. Acute kidney injury ATN nonoliguric currently significantly improved. Serum creatinine is down to 1.3. Patient did have one treatment of hemodialysis mainly for uremic encephalopathy. 2. Altered mentation secondary to medications as well as uremia currently significantly improved 3. Hyperkalemia on admission secondary to renal failure metabolic acidosis now improved 4. Metabolic acidosis from advanced renal failure currently resolved 5. Solitary kidney with history of nephrectomy. Ultrasound of the kidneys was ordered but it was not a good study secondary to body habitus. 6. Hypertension, currently uncontrolled , we can resume George inhibitors. Continue to monitor renal function. Patient does have a solitary kidney. Plan Continue IV fluids. Resume lisinopril. Repeat labs. Patient will need follow- up as outpatient. Encourage increase oral intake. We can discontinue the IV fluids by tomorrow.
[2018-09-28 12:00] LABS: Glucose,Whole Blood 160 mg/dL (75-99)
[2018-09-28 12:01] LABS: Glucose,Whole Blood 173 mg/dL (75-99)
--- NOTE | 2018-09-28 13:13 | PCN ---
PROCEDURE NOTE PROCEDURE: Removal of the dialysis catheter right femoral approach. The patient was seen in the room. Right groin was prepped and draped in a sterile manner. Stitches were removed, catheter removed. Pressure held. Patient tolerated the procedure well. GLENNA / MADELEINE: [id number] /
--- NOTE | 2018-09-28 14:59 | P.CRDCN ---
History of Present Illness Consult date: 09/28/18 Requesting physician: Lelo Michelle Consult reason: hypertension Chief complaint: Mental status changes History of present illness: This is a 63-year-old white female patient of Dr. Michelle, with a past medical history of asthma, diabetes mellitus type 2, hypertension, chronic pain, history of DVT on chronic anticoagulation, obstructive sleep apnea on CPAP. Patient was brought into the hospital on 2018 for evaluation of altered mental status changes, weakness. Patient presented to the [facility], patient is on MS Contin, and Percocet for chronic pain, given a dose of Narcan and was transferred to [facility] for further evaluation, she was found to be in acute kidney failure with a creatinine of 6.79. Her previous creatinine on 05/23/2017 was 1.36. Denied any recent fever, or chills, no nausea, vomiting or diarrhea. Denied any urinary symptoms. She does have a solitary kidney. Patient was on George inhibitors at home, no history of NSAID use prior to admission. Brain CT showed hypodensity involving the posterior right parietal lobe possibly related to subacute or chronic infarct, no acute intracranial process. Initial chest x-ray showed markedly limited exam due to hypoventilatory lungs, central venous congestion, and prominence of the right hilum. Patient was hydrated, she was given oral sodium bicarb replacements and was switched to IV bicarb infusion. Ultrasound of the abdomen was nondiagnostic. Blood work showed white blood cell count of 15.2, hemoglobin of 12.8, sodium was 139, potassium 6.3, chloride was 111, CO2 was 16, BUN was 94, creatinine was 5.8, moderate leuks, and WBCs of 89. Drug screen was positive for opiates and benzodiazepine. She was started on antibiotic coverage in the form of Rocephin, and IV hydration, and her renal profile improved some, with BUN at 95 and creatinine of 4.87 on today's labs. However her mentation was failing to improve, patient was persistently very lethargic, she has been seen in consultation by pulmonary services. A cardiology consultation was requested today because of accelerated hypertension. Blood pressure at 11 AM this morning 164/70, the time of my examination 198/102. She is complaining of a significant amount of back pain as the right groin sheath from her hemodialysis has just been removed and she's required to lay flat. Blood cell count today 13.9, hemoglobin 13, platelet count 170. Sodium 142, potassium 4.2, BUN 15 creatinine 1.3. Past Medical History Past Medical History: Asthma, Cancer, COPD, Diabetes Mellitus, Deep Vein Thrombosis (DVT), Hypertension, Renal Disease Additional Past Medical History / Comment(s): arthritis, polo filter History of Any Multi-Drug Resistant Organisms: None Reported Past Surgical History: Orthopedic Surgery Additional Past Surgical History / Comment(s): tubal ; left foot surgery; nephrectomy Past Psychological History: No Psychological Hx Reported Smoking Status: Never smoker Past Alcohol Use History: None Reported Past Drug Use History: None Reported - Past Family History Mother Family Medical History: CVA/TIA Father History Unknown: Yes Medications and Allergies Home Medications Medication Instructions Recorded Confirmed Type ALPRAZolam [Xanax] 0.25 mg PO TID PRN 09/24/18 09/24/18 History Albuterol Inhaler [Ventolin Hfa 2 puff INHALATION RT-Q4H PRN 09/24/18 09/24/18 History Inhaler] Apixaban [Eliquis] 5 mg PO BID 09/24/18 09/24/18 History Atenolol 12.5 mg PO DAILY 09/24/18 09/24/18 History Atorvastatin [Lipitor] 80 mg PO HS 09/24/18 09/24/18 History Citalopram Hydrobromide [CeleXA] 20 mg PO DAILY 09/24/18 09/24/18 History Docusate Sodium [Dok] 100 mg PO BID 09/24/18 09/24/18 History Gabapentin [Neurontin] 100 mg PO TID 09/24/18 09/24/18 History INSULIN ASPART (NovoLOG) [NovoLOG 10 unit SQ TID 09/24/18 09/24/18 History (formulary)] Insulin Glargine [Lantus] 30 - 35 unit SQ HS 09/24/18 09/24/18 History Isosorbide Mononitrate ER [Imdur] 30 mg PO DAILY 09/24/18 09/24/18 History Lisinopril [Zestril] 10 mg PO DAILY 09/24/18 09/25/18 History Montelukast [Singulair] 10 mg PO DAILY 09/24/18 09/24/18 History Morphine Sulfate Ir [MSIR] 30 mg PO QID 09/24/18 09/24/18 History Omeprazole 20 mg PO DAILY 09/24/18 09/24/18 History Spironolactone 25 mg PO DAILY 09/24/18 09/24/18 History cloNIDine HCL [Catapres] 0.1 mg PO BID 09/24/18 09/24/18 History hydrALAZINE HCL 50 mg PO BID 09/24/18 09/24/18 History Chlorthalidone [Hygroton] 25 mg PO DAILY 09/25/18 09/25/18 History Allergies Allergy/AdvReac Type Severity Reaction Status Date / Time No Known Allergies Allergy Verified 09/24/18 17:19 Physical Exam Vitals: Vital Signs Temp Pulse Resp BP BP Pulse Ox 09/28/18 12:26 91 L 09/28/18 11:42 98.1 F 68 16 164/72 99 09/28/18 10:27 76 20 09/28/18 10:09 163/83 09/28/18 08:48 98.9 F 78 16 180/90 98 09/28/18 08:23 100 09/28/18 08:00 97.3 F L 76 16 190/95 09/28/18 04:00 98.4 F 118 H 16 181/93 95 09/28/18 01:09 173/71 09/28/18 00:00 74 16 09/27/18 23:50 98.0 F 74 16 212/95 223/105 97 09/27/18 21:12 233/106 09/27/18 20:24 98 09/27/18 20:00 73 16 09/27/18 19:44 182/81 09/27/18 19:40 98.2 F 73 16 232/95 100 09/27/18 17:57 83 16 95 09/27/18 16:00 85 16 240/106 96 09/27/18 15:54 20 Intake and Output 09/27/18 09/28/18 09/28/18 22:59 06:59 14:59 Intake Total 360 Output Total 3050 Balance -3050 360 Intake: Oral 360 Output: Urine 3050 Other: Voiding Method Indwelling Catheter Indwelling Catheter Toilet Indwelling Catheter # Bowel Movements 1 1 Weight 132 kg GENERAL EXAM: Somnolent, obese 63-year-old -[place] female, in no acute distress at the time of my examination HEAD: Normocephalic/atraumatic. EYES: Normal reaction of pupils, equal size. Conjunctiva pink, sclera white. NOSE: Clear with pink turbinates. THROAT: No erythema or exudates. NECK: No masses, no JVD, no thyroid enlargement, no adenopathy. CHEST: No chest wall deformity. Symmetrical expansion. LUNGS: Equal air entry with a few scattered rhonchi, diminished breath sounds at the bases, no dullness, no wheezing CVS: Regular rate and rhythm, normal S1 and S2, no gallops, no murmurs, no rubs ABDOMEN: Soft, nontender. No hepatosplenomegaly, normal bowel sounds, no guarding or rigidity. EXTREMITIES: No clubbing, no edema, no cyanosis, 2+ pulses and upper and lower extremities. MUSCULOSKELETAL: Muscle strength and tone normal. SPINE: No scoliosis or deformity SKIN: No rashes CENTRAL NERVOUS SYSTEM: Alert and oriented 3 Results 09/28/18 06:41 09/28/18 06:41 Cardiac Enzymes 09/28/18 Range/Units 06:41 AST 31 (14-36) U/L CBC 09/28/18 Range/Units 06:41 WBC 13.9 H (3.8-10.6) k/uL RBC 4.28 (3.80-5.40) m/uL Hgb 13.1 (11.4-16.0) gm/dL Hct 41.6 (34.0-46.0) % Plt Count 170 (150-450) k/uL Comprehensive Metabolic Panel 09/28/18 Range/Units 06:41 Sodium 142 (137-145) mmol/L Potassium 4.2 (3.5-5.1) mmol/L Chloride 105 (98-107) mmol/L Carbon Dioxide 28 (22-30) mmol/L BUN 50 H (7-17) mg/dL Creatinine 1.38 H (0.52-1.04) mg/dL Glucose 174 H (74-99) mg/dL Calcium 9.2 (8.4-10.2) mg/dL AST 31 (14-36) U/L ALT 32 (9-52) U/L Alkaline Phosphatase 88 (38-126) U/L Total Protein 6.5 (6.3-8.2) g/dL Albumin 3.4 L (3.5-5.0) g/dL Current Medications Generic Name Dose Route Start Last Admin Trade Name Freq PRN Reason Stop Dose Admin Albuterol Sulfate 2.5 mg 09/25/18 08:36 Ventolin Nebulized INHALATION RT-Q4H PRN Shortness Of Breath Atenolol 25 mg 09/28/18 21:00 Tenormin PO BID HUNG Clonidine 0.1 mg 09/27/18 21:00 09/28/18 08:50 Catapres PO 0.1 mg BID HUNG Administration Docusate Sodium 100 mg 09/25/18 09:00 09/28/18 08:52 Colace PO Not Given BID [facility] Enoxaparin Sodium 130 mg 09/28/18 21:00 Lovenox SQ Q12HR HUNG Hydralazine HCl 50 mg 09/25/18 21:00 09/28/18 08:50 Apresoline PO 50 mg BID HUNG Administration Hydralazine HCl 10 mg 09/26/18 21:24 09/28/18 00:33 Apresoline IVP 10 mg Q4HR PRN Administration Blood Pressure - High Ceftriaxone Sodium 1 gm/ 50 mls @ 100 mls/hr 09/25/18 21:30 09/27/18 20:13 Sodium Chloride IVPB 100 mls/hr HS HUNG Administration Sodium Chloride 1,000 mls @ 50 mls/hr 09/27/18 20:00 09/27/18 20:13 Saline 0.45% IV 50 mls/hr .Q20H HUNG Administration Insulin Aspart 0 unit 09/28/18 12:30 09/28/18 12:00 Novolog SQ 2 unit ACHS HUNG Administration Protocol Insulin Detemir 30 unit 09/25/18 21:00 09/27/18 21:01 Levemir SQ Not Given HS HUNG Lisinopril 10 mg 09/28/18 09:30 09/28/18 12:00 Zestril PO 10 mg DAILY HUNG Administration Montelukast Sodium 10 mg 09/25/18 09:00 09/28/18 08:50 Singulair PO 10 mg DAILY HUNG Administration Pantoprazole Sodium 20 mg 09/25/18 09:00 09/27/18 09:39 Protonix PO 20 mg [id number] HUNG Administration Intake and Output 09/27/18 09/28/18 09/28/18 22:59 06:59 14:59 Intake Total 360 Output Total 3050 Balance -3050 360 Intake: Oral 360 Output: Urine 3050 Other: Voiding Method Indwelling Catheter Indwelling Catheter Toilet Indwelling Catheter # Bowel Movements 1 1 Weight 132 kg 09/28/18 06:41 09/28/18 06:41 EKG Interpretations (text) EKG on presentation here showed a normal sinus rhythm with nonspecific ST-T wave changes Assessment and Plan Plan: Assessment: #1. Altered mental status, increased lethargy, and blood gas showed mixed respiratory and metabolic acidosis. Chest x-ray showed left basilar atelectasis or infiltrate #2. Acute kidney injury, likely related to acute tubular necrosis. Nephrology is following, hemodialysis treatment has been initiated after aggressive IV hydration #3. Hyperkalemia #4. History of nephrectomy #5. Hypertension, uncontrolled #6. Non-anion gap metabolic acidosis related to renal failure #7. History of deep venous thrombosis, on Eliquis #8. History of chronic bronchial asthma #9. Possible urinary tract infection #10. Chronic pain syndrome Plan We will obtain an echocardiogram with Doppler study. We will also discontinue the Tenormin and start the patient on Coreg. Add Procardia to her medication regime, increase lisinopril. DNP note has been reviewed, I agree with a documented findings and plan of care. Patient was seen and examined.
[2018-09-28] MEDS: NIFEdipine XL 90 MG TAB.ER.24 PO SCH (15:44)
[2018-09-28] MEDS: CHLORTHALIDONE 25 MG TAB PO SCH (15:44)
[2018-09-28] MEDS: SODIUM CHLORIDE 0.45% 1,000 ML IV SCH (15:44)
--- NOTE | 2018-09-28 16:01 | P.PN ---
Subjective Progress Note Date: 09/28/18 Principal diagnosis: Acute hypercapnic respiratory failure with lethargy, acute metabolic acidosis improved This is a 63-year-old white female patient of Dr. Michelle, with a past medical history of asthma, diabetes mellitus type 2, hypertension, chronic pain, history of DVT on chronic anticoagulation, obstructive sleep apnea on CPAP. Patient was brought into the hospital on O2 to 2018 for evaluation of altered mental status changes, weakness. Patient presented to the [facility], patient is on MS Contin, and Percocet for chronic pain , given a dose of Narcan and was transferred to [facility] for further evaluation, she was found to be in acute kidney failure with a creatinine of 6.79. Her previous creatinine on 05/23/2017 was 1.36. Denied any recent fever, or chills, no nausea, vomiting or diarrhea. Denied any urinary symptoms. She does have a solitary kidney. Patient was on George inhibitors at home, no history of NSAID use prior to admission. Brain CT showed hypodensity involving the posterior right parietal lobe possibly related to subacute or chronic infarct, no acute intracranial process. Initial chest x-ray showed markedly limited exam due to hypoventilatory lungs, central venous congestion, and prominence of the right hilum. Patient was hydrated, she was given oral sodium bicarb replacements and was switched to IV bicarb infusion. Ultrasound of the abdomen was nondiagnostic. Blood work showed white blood cell count of 15.2, hemoglobin of 12.8, sodium was 139, potassium 6.3, chloride was 111, CO2 was 16, BUN was 94, creatinine was 5.8, moderate leuks, and WBCs of 89. Drug screen was positive for opiates and benzodiazepine. She was started on antibiotic coverage in the form of Rocephin, and IV hydration, and her renal profile improved some, with BUN at 95 and creatinine of 4.87 on today's labs. However her mentation was failing to improve, patient was persistently very lethargic, and apparently this morning she was quite somnolent. And this consult was initiated, follow-up chest x-ray showed left basilar atelectasis or infiltrate, pulmonary arterial hypertension, and adenopathy or mass in the right hilum was not excluded. Blood gas was obtained, and showed pO2 of 81, pCO2 is 48, and pH of 7.22, consistent with a combined metabolic, and respiratory acidosis. Patient does wear CPAP at home, based on BiPAP support at pressures of 12/6, and FiO2 of 40%. Upon my evaluation patient is responsive to verbal stimuli, and is able to provide short answers. Does not appear to be in any apparent distress, patient cannula for hemodialysis catheter insertion today, and hemodialysis will be initiated. The patient was seen today 09/27/2017 in follow-up on the selective care unit. She is more awake and alert today as compared to yesterday. She did utilize the BiPAP last evening. She denies any worsening shortness of breath, cough or congestion at this time. Rectal maintaining good O2 saturations in the upper 90s on 4 L/m per nasal cannula. She's been afebrile. Somewhat hypertensive. Blood and urine cultures reveal no growth. White count 12.0. Hemoglobin 13.4. Creatinine 1.92. Bicarb up to 24. She has been maintained on bronchodilators , ceftriaxone, D5W with 3 A of bicarb at 75 ML's per hour. On 09/28/2018 patient seen in follow-up on selective care unit, she is resting comfortably in bed, she did not utilize the BiPAP last night, she is wearing O2 currently 2 L per nasal cannula and her pulse ox is 99 200%. No respiratory distress, lung sounds are clear, diminished at the bases, no rhonchi, no wheezing no rales, patient is producing urine, on today's labs renal profile is improved, BUN is 50, creatinine is 1.38, CO2 is 28. He states she has home O2 at home apparently she was told she does have sleep apnea, and she did not want to wear the CPAP, and she opted for nighttime O2. We removed the oxygen, and room air pulse ox is 94%, vital signs are stable, no evidence of lethargy, no evidence of respiratory distress. Blood and urine cultures are negative. Patient will have her hemodialysis catheter removed today. Objective - Vital Signs Vital signs: Vital Signs Temp 98.1 F 09/28/18 11:42 Pulse 75 09/28/18 15:43 Resp 16 09/28/18 11:42 BP 186/85 09/28/18 15:43 Pulse Ox 94 L 09/28/18 14:30 Intake & Output 09/27/18 09/28/18 09/28/18 18:59 06:59 18:59 Intake Total 250 480 Output Total 3350 650 400 Balance -3100 -650 80 Weight 132 kg Intake: Oral 250 480 Output: Urine 3350 650 400 Other: Voiding Method Indwelling Catheter Indwelling Catheter Toilet Indwelling Catheter # Bowel Movements 1 1 - Exam GENERAL EXAM: Alert, pleasant, 63-year-old -[place] female in 2 L per nasal cannula, comfortable in no apparent distress. HEAD: Normocephalic/atraumatic. EYES: Normal reaction of pupils, equal size. Conjunctiva pink, sclera white. NOSE: Clear with pink turbinates. THROAT: No erythema or exudates. NECK: No masses, no JVD, no thyroid enlargement, no adenopathy. CHEST: No chest wall deformity. Symmetrical expansion. LUNGS: Equal air entry with no crackles, wheeze, rhonchi or dullness. CVS: Regular rate and rhythm, normal S1 and S2, no gallops, no murmurs, no rubs ABDOMEN: Soft, nontender. No hepatosplenomegaly, normal bowel sounds, no guarding or rigidity. EXTREMITIES: No clubbing, no edema, no cyanosis, 2+ pulses and upper and lower extremities. MUSCULOSKELETAL: Muscle strength and tone normal. SPINE: No scoliosis or deformity SKIN: No rashes CENTRAL NERVOUS SYSTEM: Alert and oriented -3. No focal deficits, tone is normal in all 4 extremities. PSYCHIATRIC: Alert and oriented -3. Appropriate affect. Intact judgment and insight. - Labs CBC & Chem 7: 09/28/18 06:41 09/28/18 06:41 Labs: Abnormal Lab Results - Last 24 Hours (Table) 09/27/18 09/27/18 09/28/18 Range/Units 16:32 20:42 05:51 WBC (3.8-10.6) k/uL Neutrophils # (1.3-7.7) k/uL Lymphocytes # (1.0-4.8) k/uL BUN (7-17) mg/dL Creatinine (0.52-1.04) mg/dL Glucose (74-99) mg/dL POC Glucose (mg/dL) 163 H 180 H 160 H (75-99) mg/dL Albumin (3.5-5.0) g/dL 09/28/18 09/28/18 09/28/18 Range/Units 06:41 06:41 11:27 WBC 13.9 H (3.8-10.6) k/uL Neutrophils # 11.9 H (1.3-7.7) k/uL Lymphocytes # 0.8 L (1.0-4.8) k/uL BUN 50 H (7-17) mg/dL Creatinine 1.38 H (0.52-1.04) mg/dL Glucose 174 H (74-99) mg/dL POC Glucose (mg/dL) 173 H (75-99) mg/dL Albumin 3.4 L (3.5-5.0) g/dL Microbiology - Last 24 Hours (Table) 09/25/18 12:09 Blood Culture - Preliminary Blood No Growth after 72 hours Assessment and Plan Plan: Assessment: #1. Altered mental status, increased lethargy, and blood gas showed mixed respiratory and metabolic acidosis. Chest x-ray showed left basilar atelectasis or infiltrate #2. Acute kidney injury, likely related to acute tubular necrosis. Nephrology is following, hemodialysis treatment has been initiated after aggressive IV hydration. Improving, patient required 1 hemodialysis treatment. #3. Hyperkalemia, resolved #4. History of nephrectomy #5. Hypertension #6. Non-anion gap metabolic acidosis related to renal failure, resolved #7. History of deep venous thrombosis, on Eliquis #8. History of chronic bronchial asthma #9. Possible urinary tract infection #10. Chronic pain syndrome Plan: Continue current medical treatment, patient did not require BiPAP support last night, she is awake and alert, no signs of respiratory distress, oxygen was removed, and room air pulse ox is 94%, some point she may require a sleep study for investigation of obstructive sleep apnea. The patient is doing well, will follow is improving, her metabolic acidosis has resolved, and is having her hemodialysis catheter removed. We'll follow on an as-needed basis. I performed a history & physical examination of the patient and discussed their management with my nurse practitioner, Lashawn Juarez. I reviewed the nurse practitioner's note and agree with the documented findings and plan of care. Lung sounds are diminished breath sounds. The findings and the impression was discussed with the patient. I attest to the documentation by the nurse practitioner. Time with Patient: Less than 30
[2018-09-28 16:28] LABS: Glucose,Whole Blood 154 mg/dL (75-99)
[2018-09-28] MEDS: CARVEDILOL 12.5 MG TAB PO SCH (16:36)
[2018-09-28] MEDS: ACETAMINOPHEN TAB 500 MG TAB PO PRN ×2 (16:36→22:56)
[2018-09-28 20:56] LABS: Glucose,Whole Blood 173 mg/dL (75-99)
[2018-09-28] MEDS: ENOXAPARIN 150 MG/ML SYRINGE SQ SCH (21:49)
[2018-09-28] MEDS: INSULIN DETEMIR (LEVEMIR) 100 UNIT/ML SYR SQ SCH (21:50)
[2018-09-29 06:36] LABS: Basophils % (A) 0 %; Eosinophils # (A) 0.1 k/uL (0-0.7); Eosinophils % (A) 1 %; HCT 41.4 % (34.0-46.0); HGB 13.3 gm/dL (11.4-16.0); Lymphocytes # (A) 1.4 k/uL (1.0-4.8); Lymphocytes % (A) 9 %; MCH 31.5 pg (25.0-35.0); MCV 98.4 fL (80.0-100.0); Mean Platelet Volume 8.1; Monocytes # (A) 0.8 k/uL (0-1.0); Monocytes % (A) 5 %; Neutrophils # (A) 11.9 k/uL (1.3-7.7); Neutrophils % (A) 82 %; Platelet Count 154 k/uL (150-450); RDW 12.7 % (11.5-15.5); WBC 14.6 k/uL (3.8-10.6)
[2018-09-29] MEDS: INSULIN ASPART (NovoLOG) 100 UNIT/ML VIAL SQ SCH ×4 (06:53→21:26)
[2018-09-29] MEDS: PANTOPRAZOLE 40 MG TABLET PO SCH (06:53)
[2018-09-29] MEDS: CARVEDILOL 12.5 MG TAB PO SCH ×2 (06:53→17:41)
[2018-09-29 06:55] LABS: Albumin 3.6 g/dL (3.5-5.0); Calcium 9.3 mg/dL (8.4-10.2); Potassium 4.1 mmol/L (3.5-5.1); Total Bilirubin 1.1 mg/dL (0.2-1.3); Total Protein 6.8 g/dL (6.3-8.2)
[2018-09-29 06:57] LABS: Glucose,Whole Blood 140 mg/dL (75-99)
[2018-09-29] MEDS: ACETAMINOPHEN TAB 500 MG TAB PO PRN ×3 (07:07→21:30)
--- NOTE | 2018-09-29 08:20 | P.PN ---
Subjective Progress Note Date: 09/29/18 Principal diagnosis: This is a 63-year-old female who was seen initially with severe ATN from possibly DEREK inhibitor's and unknown factors, possibly hypotension from taking narcotics. She was initiated on dialysis because of change in mental status. She is improved and is been off of dialysis, she had only one dialysis a good amount of urine has fair appetite but doesn't like the food. Denies any nausea vomiting diarrhea abdominal pain no fever chills no cough mildly short of breath on nasal cannula. She is obese and In the past has had history of DVT she is on alkalosis. She has chronic pain. She also has solitary kidney postop nephrectomy for possible malignancy Objective - Vital Signs Vital signs: Vital Signs Temp 98.5 F 09/29/18 07:53 Pulse 67 09/29/18 07:53 Resp 16 09/29/18 07:53 BP 209/100 09/29/18 07:53 Pulse Ox 98 09/29/18 07:53 Intake & Output 09/28/18 09/29/18 09/29/18 18:59 06:59 18:59 Intake Total 480 Output Total 400 1701 Balance 80 -1701 Weight 131.7 kg Intake: Oral 480 Output: Urine 400 1700 Stool 1 Other: Voiding Method Indwelling Catheter Indwelling Catheter Indwelling Catheter # Voids 0 # Bowel Movements 1 On examination awake alert oriented HEENT exam no JVP neck is supple no facial asymmetry She is on nasal cannula oxygen Lungs are clear to auscultation fair air entry bilaterally Heart sounds are unremarkable for any murmur rub gallop Abdomen soft nontender obese Extremity exam was trace edema Neurologically awake alert oriented - Labs CBC & Chem 7: 09/29/18 06:16 09/29/18 06:16 Labs: Abnormal Lab Results - Last 24 Hours (Table) 09/28/18 09/28/18 09/28/18 Range/Units 05:51 11:27 16:25 WBC (3.8-10.6) k/uL Neutrophils # (1.3-7.7) k/uL BUN (7-17) mg/dL Creatinine (0.52-1.04) mg/dL Glucose (74-99) mg/dL POC Glucose (mg/dL) 160 H 173 H 154 H (75-99) mg/dL 09/28/18 09/29/18 09/29/18 Range/Units 20:51 06:16 06:16 WBC 14.6 H (3.8-10.6) k/uL Neutrophils # 11.9 H (1.3-7.7) k/uL BUN 43 H (7-17) mg/dL Creatinine 1.25 H (0.52-1.04) mg/dL Glucose 161 H (74-99) mg/dL POC Glucose (mg/dL) 173 H (75-99) mg/dL 09/29/18 Range/Units 06:18 WBC (3.8-10.6) k/uL Neutrophils # (1.3-7.7) k/uL BUN (7-17) mg/dL Creatinine (0.52-1.04) mg/dL Glucose (74-99) mg/dL POC Glucose (mg/dL) 140 H (75-99) mg/dL Microbiology - Last 24 Hours (Table) 09/25/18 12:09 Blood Culture - Preliminary Blood No Growth after 72 hours Assessment and Plan Assessment: Impression 1. Acute kidney injury from ATN from DEREK inhibitor's and was dialyzed once and is off of dialysis. The Wang catheter has been pulled off. Good urine creatinine is down to 1.25. Electrolytes unremarkable 2. Status post nephrectomy remote for possible malignancy. 3. Obesity. 4. Chronic pain Recommendation. 1. Discontinue Enriquez catheter. Maintain strict I's and O's. 2. If necessary will check postvoid residual and reinsert Enriquez cath
[2018-09-29] MEDS: DOCUSATE 100 MG CAP PO SCH ×2 (08:45→21:10)
[2018-09-29] MEDS: LISINOPRIL 20 MG TAB PO SCH (08:46)
[2018-09-29] MEDS: hydrALAZINE HCL 50 MG TAB PO SCH ×2 (08:46→21:32)
[2018-09-29] MEDS: MONTELUKAST 10 MG TAB PO SCH (08:46)
[2018-09-29] MEDS: CHLORTHALIDONE 25 MG TAB PO SCH (08:46)
[2018-09-29] MEDS: cloNIDine HCL 0.1 MG TAB PO SCH ×2 (08:46→21:32)
[2018-09-29] MEDS: NIFEdipine XL 90 MG TAB.ER.24 PO SCH (08:46)
--- NOTE | 2018-09-29 09:48 | ECHOF ---
Referral Reason:htn MEASUREMENTS -------- HEIGHT: 167.6 cm WEIGHT: 132.0 kg BP: 181/95 RVIDd: 3.1 cm (< 3.3) IVSd: 1.4 cm (0.6 - 1.1) LVIDd: 5.8 cm (3.9 - 5.3) LVPWd: 1.4 cm (0.6 - 1.1) IVSs: 1.7 cm LVIDs: 4.3 cm LVPWs: 1.5 cm LA Diam: 3.8 cm (2.7 - 3.8) Ao Diam: 3.4 cm (2.0 - 3.7) AV Cusp: 2.1 cm (1.5 - 2.6) LA Diam: 3.5 cm (2.7 - 3.8) EPSS: 0.7 cm MV E Jhon: 0.64 m/s MV DecT: 256 ms MV A Jhon: 1.30 m/s MV E/A Ratio: 0.49 RAP: 5.00 mmHg RVSP: 48.96 mmHg MV EF SLOPE: 103.48 mm/s (70 - 150) MV EXCURSION: 2.27 cm (> 18.000) FINDINGS -------- Sinus rhythm. This was a technically difficult study with suboptimal views. The left ventricular size is normal. There is moderate concentric left ventricular hypertrophy. O verall left ventricular systolic function is mildly impaired with, an EF about 50 %. The right ventricle is normal in size and function. The left atrium was not well visualized. RA appears enlarged. 3 ml of Lumason was utilized for enhancement of images. There is mild aortic valve sclerosis. There is no evidence of aortic regurgitation. There is no e vidence of aortic stenosis. The mitral valve leaflets are mildly thickened. There is trace to mild mitral regurgitation. Mild tricuspid regurgitation present. There is mild pulmonary hypertension. The right ventricular systolic pressure, as measured by Doppler, is 48.96mmHg. The pulmonic valve was not well visualized. The aortic root size is normal. Normal inferior vena cava with normal inspiratory collapse consistent with estimated right atrial pre ssure of 5 mmHg. The pericardium is normal. CONCLUSIONS -------- 1. Sinus rhythm. 2. This was a technically difficult study with suboptimal views. 3. The left ventricular size is normal. 4. There is moderate concentric left ventricular hypertrophy. 5. Overall left ventricular systolic function is mildly impaired with, an EF about 50 %. 6. The left atrium was not well visualized. 7. RA appears enlarged. 8. 3 ml of Lumason was utilized for enhancement of images. 9. There is mild aortic valve sclerosis. 10. The mitral valve leaflets are mildly thickened. 11. There is trace to mild mitral regurgitation. 12. Mild tricuspid regurgitation present. 13. There is mild pulmonary hypertension. 14. The right ventricular systolic pressure, as measured by Doppler, is 48.96mmHg. 15. The pulmonic valve was not well visualized. 16. The aortic root size is normal. PROCESS HELPER: Harsh Banda RDCS
[2018-09-29] MEDS: ENOXAPARIN 150 MG/ML SYRINGE SQ SCH ×2 (10:09→21:57)
[2018-09-29] MEDS ORDERED: cloNIDine HCL 0.2 MG TAB PO STA (10:14)
[2018-09-29] MEDS: SODIUM CHLORIDE 0.45% 1,000 ML IV SCH (10:47)
[2018-09-29 12:16] LABS: Glucose,Whole Blood 221 mg/dL (75-99)
--- NOTE | 2018-09-29 12:26 | P.PN ---
Subjective Progress Note Date: 09/29/18 This is a 63-year-old female patient presented to the hospital with altered mental status changes. Patient currently follows with pain clinic. According to records and patient's daughter at bedside patient took 2 Percocet along with 2 MS Contin two night ago. Upon waking patient was increasingly weak. Patient' s family urged patient to go to hospital for further evaluation. Patient went to [facility] in which she received Narcan. She also on acute renal failure with creatinine of 6.79. Patient was then transferred to [facility] for further evaluation. She denies any recent illness with diarrhea or emesis. Patient does reports she continue meds as prescribed. Patient has past medical history of asthma, cancer, COPD, diabetes mellitus, DVT which she takes eliquis, hypertension, renal disease, Rahul filter and chronic pain from arthritis. During examination patient was alert and oriented 3 but very drowsy. Patient would often fall asleep during conversation. Patient has not received any narcotics for 24 hours. Patient's daughter at bedside also reports that patient has been delusional lately. On examination patient does follow commands and has equal strength throughout all extremities. No facial droop noted. Speech is clear. At this time drug screen has been ordered. CT of head ordered. Dr. Mitchell has been consulted for nephrology. All narcotics currently on hold. EKG ordered. Chest x-ray ordered. Urinary analysis and culture ordered. Patient denies any chest pain. Patient is complaining of nonproductive cough. Patient denies nausea vomiting or diarrhea. Patient denies any urinary burning or frequency. on 09/26/2018 patient more lethargic and confused today. Patient does wake up and follows commands. Discussed case with nephrology services planning to place a dialysis catheter and emergent dialysis due to increased confusion. Creatinine is trending down. Per nephrology will not likely require chronic dialysis. Patient not taking pills. Will switch patient to Lovenox 1 mg/kg pharmacy to dose for DVT treatment. Medication to be given after hemodialysis catheter placed. Also discussed with critical care services. Consult placed. ABG's ordered. On 09/27/2018 patient appears more alert and less sleepy today. Patient does answer questions all appropriately. Patient underwent emergent dialysis yesterday. Patient's creatinine improving to 1.92. At this time patient denies any nausea vomiting or diarrhea. Patient denies any urinary burning or frequency. Patient remains on Lovenox 1 mg/kg pharmacy dosing. Dr. Bhakta per critical care and nephrology services are following On 09/28/2018 patient is much more awake and alert. Patient is answering questions appropriately. Creatinine improving to 1.38. Patient did have episodes of tachycardia last night with heart rate increasing to 130s. Will consult cardiology services. Patient also having high blood pressure. Blood pressures have been adjusted. We'll continue to monitor. This time patient denies chest pain or shortness breath. Patient denies nausea vomiting or diarrhea. Patient denies any urinary burning or frequency. On 09/29/2018 patient is much more awake and alert. Creatinine improving to 1.25. White blood count is more elevated today at 14.6. Source of infection is not clear urine culture is negative chest x-ray revealing possible left lower lobe infiltrate and hilar adenopathy and possible mass at this time will obtain computed tomography scan of the chest without contrast. Continue IV Rocephin. Clinically patient is complaining of back pain otherwise she denies any complaints there is no fever or chills no headache or dizziness no chest pain no shortness of breath no cough no nausea or vomiting no abdominal pain no diarrhea or constipation and no urinary symptoms Objective - Vital Signs Vital signs: Vital Signs Temp 98.7 F 09/29/18 11:07 Pulse 66 09/29/18 11:07 Resp 16 09/29/18 11:07 BP 187/81 09/29/18 11:07 Pulse Ox 98 09/29/18 11:07 Intake & Output 09/28/18 09/29/18 09/29/18 18:59 06:59 18:59 Intake Total 480 160 Output Total 400 1701 Balance 80 -1701 160 Weight 131.7 kg Intake: Intake, IV Titration 100 Amount Sodium Chloride 0.45% 1, 100 000 ml @ 50 mls/hr IV . Q20H [facility] Rx#:[id number] Oral 480 60 Output: Urine 400 1700 Stool 1 Other: Voiding Method Indwelling Catheter Indwelling Catheter Indwelling Catheter # Voids 0 1 # Bowel Movements 1 - Exam Head normocephalic and atraumatic Neck supple no JVD no goiter Lungs clear to auscultation bilaterally no wheezing or crackles Heart regular rate and rhythm S1-S2, no rub or gallop Abdomen is soft nontender nondistended positive bowel sounds no hepatosplenomegaly Extremities no edema no cyanosis or clubbing Neuro alert and orientated to 3. Sitting up on the edge of her bed eating her meal answering questions appropriately Patient does have equal strength throughout all extremities. No facial droop noted. Speech is clear. - Labs CBC & Chem 7: 09/29/18 06:16 09/29/18 06:16 Labs: Abnormal Lab Results - Last 24 Hours (Table) 09/28/18 09/28/18 09/29/18 Range/Units 16:25 20:51 06:16 WBC 14.6 H (3.8-10.6) k/uL Neutrophils # 11.9 H (1.3-7.7) k/uL BUN (7-17) mg/dL Creatinine (0.52-1.04) mg/dL Glucose (74-99) mg/dL POC Glucose (mg/dL) 154 H 173 H (75-99) mg/dL 09/29/18 09/29/18 09/29/18 Range/Units 06:16 06:18 12:13 WBC (3.8-10.6) k/uL Neutrophils # (1.3-7.7) k/uL BUN 43 H (7-17) mg/dL Creatinine 1.25 H (0.52-1.04) mg/dL Glucose 161 H (74-99) mg/dL POC Glucose (mg/dL) 140 H 221 H (75-99) mg/dL Microbiology - Last 24 Hours (Table) 09/25/18 12:09 Blood Culture - Preliminary Blood No Growth after 72 hours Assessment and Plan Plan: 1. Altered mental status changes likely related to encephalopathy secondary to uremia as well as drug effect from opiotes and benzos with advanced renal failure. Questionable medication overdose. Per patient's family and nursing staff all pills correctly accounted for. Drug screen has been ordered. head CT completed showing motion limited exam. There is hypodensity involving the posterior right parietal lobe. Correlate for possible subacute or chronic infarct no mass effect or midline shift. No acute intracranial hemorrhage, mass effect or midline shift. Blood gases completed showing mixed respiratory metabolic acidosis. Patient currently on sodium bicarb drip. 2. Acute kidney injury and acute tubular necrosis with solitary kidney. Creatinine 6.79 and bun 83. Potassium also elevated at 5.4. Patient denies any recent illness. Dr. Mitchell has been consulted for nephrology services. Ultrasound of kidneys and bladder ordered per nephrology. Normal saline at 75. Indwelling Enriquez catheter in place. ultrasound of kidneys renal and bladder completed showing nondiagnostic exam. Discussed case with Dr. Flor per nephrology. Patient underwent emergent hemodialysis yesterday with placement of catheter per Dr. Durant. Creatinine is continue to trend down to 1.38 and bun 50 3. Leukocytosis. White blood cell elevated at 15.4. Chest x-ray, urinary analysis and blood culture ordered. Patient has been afebrile. Dr. Lance has been consulted for critical care and pulmonary management. Patient remains on Rocephin for IV antibiotics for possible pneumonia and/or UTI. White blood cells are trending up to 14.6. Source of infection not well established chest x -ray revealing possible left lower lobe infiltrate and possible right hilar adenopathy and possible mass Will obtain computed tomography scan of the chest without contrast for further evaluation 4. History of DVT. Eliquis has been resumed to be restarted after head CT completed. she not tolerating pills at this time. Discussed with oncology will switch patient over to Lovenox 1 mg/kg per pharmacy to dose due to renal dosing 5. Diabetes mellitus. Home insulin ordered for sliding scale coverage. Hemoglobin A1c 7.7 6. History of COPD 7. History of essential hypertension. Multiple blood pressure patient currently on hold due to acute kidney injury. Patient also with blood pressure systolic in the 90s. Patient is now having hypertension. Home dose of Catapres has been added. 8. atenolol has been increasedHistory of asthma 9. History of arthritis 10. History of nephrectomy 11. Metabolic acidosis secondary to advanced renal failure continue IV bicarb at this time per nephrology 12. Tachycardia. Heart rate increasing to 130s throughout night. Cardiology services have been consulted DVT prophylaxis Lovenox. GI prophylaxis Protonix nephrology and critical care following reality service is consulted
--- NOTE | 2018-09-29 13:08 | PN ---
PROGRESS NOTE This patient was admitted with overdose of OxyContin and patient has a history of hypertension. Patient has been taking multiple medications and still continues to have significantly elevated blood pressure. Her blood pressure this morning is 187/81 mmHg. First and second heart sounds are normal. Lungs are clinically clear to auscultation and percussion. We will try to get her ultrasound of the renal arteries to rule out any significant renal artery stenosis. Patient's clonidine is increased to 0.3 mg twice a day. Continue the rest of the medications. MMODL / IJN: [id number] /
--- NOTE | 2018-09-29 14:34 | CT ---
EXAMINATION TYPE: CT chest wo con DATE OF EXAM: 09/29/2018 COMPARISON: NONE HISTORY: Abnormal CXR CT DLP: 631 mGycm. Automated Exposure Control for Dose Reduction was Utilized. TECHNIQUE: CT scan of the thorax is performed without IV contrast. FINDINGS: LUNGS: The lungs are grossly clear. No concerning mass or nodules. There is no pleural effusion or pneumothorax. The tracheobronchial tree is patent. MEDIASTINUM: Lack of IV contrast is noted to limit evaluation for mediastinal and especially hilar ad enopathy. There are no definitive greater than 1 cm hilar or mediastinal lymph nodes. No cardiomega ly or pericardial effusion is seen. OTHER: Abnormality identified on prior CT represents superimposed pulmonary vessels. Limited evaluation of the upper abdomen reveals a prior left nephrectomy. Small hiatal hernia. IMPRESSION: 1. No acute findings on this unenhanced exam. 2. Abnormality identified on prior radiograph represents superimposed pulmonary vessels.
[2018-09-29] MEDS: ALBUTEROL NEBULIZED 2.5 MG/3 ML INHALATION PRN ×2 (15:22→19:55)
[2018-09-29 16:51] LABS: Glucose,Whole Blood 141 mg/dL (75-99)
[2018-09-29] MEDS: ALPRAZolam 0.25 MG TAB PO PRN (17:41)
[2018-09-29 21:17] LABS: Glucose,Whole Blood 130 mg/dL (75-99)
[2018-09-29] MEDS: INSULIN DETEMIR (LEVEMIR) 100 UNIT/ML SYR SQ SCH (21:33)
[2018-09-30] MEDS: ALPRAZolam 0.25 MG TAB PO PRN ×5 (00:42→21:41)
[2018-09-30 06:16] LABS: Glucose,Whole Blood 158 mg/dL (75-99)
[2018-09-30] MEDS: CARVEDILOL 12.5 MG TAB PO SCH ×2 (06:31→17:42)
[2018-09-30] MEDS: INSULIN ASPART (NovoLOG) 100 UNIT/ML VIAL SQ SCH ×4 (06:31→21:43)
[2018-09-30] MEDS: PANTOPRAZOLE 40 MG TABLET PO SCH (06:31)
[2018-09-30 06:40] LABS: Basophils # (A) 0.1 k/uL (0-0.2); Basophils % (A) 1 %; Eosinophils # (A) 0.2 k/uL (0-0.7); Eosinophils % (A) 1 %; HCT 44.3 % (34.0-46.0); HGB 13.8 gm/dL (11.4-16.0); Hypochromasia Slight; Lymphocytes # (A) 1.3 k/uL (1.0-4.8); Lymphocytes % (A) 10 %; MCH 31.4 pg (25.0-35.0); MCHC 31.2 g/dL (31.0-37.0); MCV 100.5 fL (80.0-100.0); Mean Platelet Volume 8.4; Monocytes # (A) 0.9 k/uL (0-1.0); Monocytes % (A) 6 %; Neutrophils # (A) 10.5 k/uL (1.3-7.7); Neutrophils % (A) 80 %; Platelet Count 149 k/uL (150-450); RBC 4.41 m/uL (3.80-5.40); RDW 12.6 % (11.5-15.5); WBC 13.2 k/uL (3.8-10.6)
[2018-09-30 06:50] LABS: Albumin 3.5 g/dL (3.5-5.0); Calcium 9.4 mg/dL (8.4-10.2); Potassium 4.2 mmol/L (3.5-5.1); Total Bilirubin 1.1 mg/dL (0.2-1.3); Total Protein 6.8 g/dL (6.3-8.2)
[2018-09-30] MEDS: ACETAMINOPHEN TAB 500 MG TAB PO PRN ×3 (07:14→19:59)
[2018-09-30] MEDS: ALBUTEROL NEBULIZED 2.5 MG/3 ML INHALATION PRN ×2 (08:04→15:41)
--- NOTE | 2018-09-30 08:37 | P.PN ---
Subjective Progress Note Date: 09/30/18 Principal diagnosis: This is a 63-year-old female who was seen initially with severe ATN from possibly DEREK inhibitor's and unknown factors, possibly hypotension from taking narcotics. She was initiated on dialysis because of change in mental status. She is improved and is been off of dialysis, she had only one dialysis. Currently she is fairly asymptomatic, does not eat well here as she says she does not like the food but has a good appetite. She denies any nausea vomiting. She is on nasal cannula oxygen. Able to walk without any difficulties. Denies any nausea vomiting diarrhea abdominal pain no fever chills no cough mildly short of breath on nasal cannula. She is obese and In the past has had history of DVT she is on alkalosis. She has chronic pain. She also has solitary kidney postop nephrectomy for possible malignancy Objective - Vital Signs Vital signs: Vital Signs Temp 98.0 F 09/30/18 04:00 Pulse 66 09/30/18 08:17 Resp 18 09/30/18 04:00 BP 167/75 09/30/18 04:00 Pulse Ox 100 09/30/18 08:04 Intake & Output 09/29/18 09/30/18 09/30/18 18:59 06:59 18:59 Intake Total 160 Balance 160 Weight 131.5 kg Intake: Intake, IV Titration 100 Amount Sodium Chloride 0.45% 1, 100 000 ml @ 50 mls/hr IV . Q20H [facility] Rx#:[id number] Oral 60 Other: Voiding Method Toilet Toilet # Voids 1 3 On examination is awake alert oriented comfortable HEENT exam no JVP neck is supple no facial asymmetry Lungs clear to auscultation good air entry bilaterally Heart sounds are unremarkable for any murmur rub gallop Abdomen soft nontender obese Extremity exam was no edema Neurologically awake alert oriented. - Labs CBC & Chem 7: 09/30/18 06:09 09/30/18 06:09 Labs: Abnormal Lab Results - Last 24 Hours (Table) 09/29/18 09/29/18 09/29/18 Range/Units 12:13 16:48 21:11 WBC (3.8-10.6) k/uL MCV (80.0-100.0) fL Plt Count (150-450) k/uL Neutrophils # (1.3-7.7) k/uL BUN (7-17) mg/dL Creatinine (0.52-1.04) mg/dL Glucose (74-99) mg/dL POC Glucose (mg/dL) 221 H 141 H 130 H (75-99) mg/dL AST (14-36) U/L 09/30/18 09/30/18 09/30/18 Range/Units 06:09 06:09 06:13 WBC 13.2 H (3.8-10.6) k/uL MCV 100.5 H (80.0-100.0) fL Plt Count 149 L (150-450) k/uL Neutrophils # 10.5 H (1.3-7.7) k/uL BUN 36 H (7-17) mg/dL Creatinine 1.24 H (0.52-1.04) mg/dL Glucose 179 H (74-99) mg/dL POC Glucose (mg/dL) 158 H (75-99) mg/dL AST 40 H (14-36) U/L Microbiology - Last 24 Hours (Table) 09/25/18 12:09 Blood Culture - Preliminary Blood No Growth after 96 hours Assessment and Plan Assessment: Impression 1. Acute kidney injury from ATN from DEREK inhibitor's and was dialyzed once, and is off of dialysis. The Wang catheter has been pulled off. Good urine output and her creatinine is down to 1.25. Electrolytes unremarkable 2. Status post nephrectomy remote for possible malignancy. 3. Obesity. 4. Chronic pain Recommendation. 1. Will sign off. 2. Follow-up in the office upon discharge. This is because of patient with acute kidney injury requiring dialysis have a density to have chronic kidney disease
--- NOTE | 2018-09-30 09:31 | P.PN ---
Subjective Progress Note Date: 09/30/18 This is a 63-year-old female patient presented to the hospital with altered mental status changes. Patient currently follows with pain clinic. According to records and patient's daughter at bedside patient took 2 Percocet along with 2 MS Contin two night ago. Upon waking patient was increasingly weak. Patient' s family urged patient to go to hospital for further evaluation. Patient went to [facility] in which she received Narcan. She also on acute renal failure with creatinine of 6.79. Patient was then transferred to [facility] for further evaluation. She denies any recent illness with diarrhea or emesis. Patient does reports she continue meds as prescribed. Patient has past medical history of asthma, cancer, COPD, diabetes mellitus, DVT which she takes eliquis, hypertension, renal disease, Rahul filter and chronic pain from arthritis. During examination patient was alert and oriented 3 but very drowsy. Patient would often fall asleep during conversation. Patient has not received any narcotics for 24 hours. Patient's daughter at bedside also reports that patient has been delusional lately. On examination patient does follow commands and has equal strength throughout all extremities. No facial droop noted. Speech is clear. At this time drug screen has been ordered. CT of head ordered. Dr. Mitchell has been consulted for nephrology. All narcotics currently on hold. EKG ordered. Chest x-ray ordered. Urinary analysis and culture ordered. Patient denies any chest pain. Patient is complaining of nonproductive cough. Patient denies nausea vomiting or diarrhea. Patient denies any urinary burning or frequency. on 09/26/2018 patient more lethargic and confused today. Patient does wake up and follows commands. Discussed case with nephrology services planning to place a dialysis catheter and emergent dialysis due to increased confusion. Creatinine is trending down. Per nephrology will not likely require chronic dialysis. Patient not taking pills. Will switch patient to Lovenox 1 mg/kg pharmacy to dose for DVT treatment. Medication to be given after hemodialysis catheter placed. Also discussed with critical care services. Consult placed. ABG's ordered. On 09/27/2018 patient appears more alert and less sleepy today. Patient does answer questions all appropriately. Patient underwent emergent dialysis yesterday. Patient's creatinine improving to 1.92. At this time patient denies any nausea vomiting or diarrhea. Patient denies any urinary burning or frequency. Patient remains on Lovenox 1 mg/kg pharmacy dosing. Dr. Bhakta per critical care and nephrology services are following On 09/28/2018 patient is much more awake and alert. Patient is answering questions appropriately. Creatinine improving to 1.38. Patient did have episodes of tachycardia last night with heart rate increasing to 130s. Will consult cardiology services. Patient also having high blood pressure. Blood pressures have been adjusted. We'll continue to monitor. This time patient denies chest pain or shortness breath. Patient denies nausea vomiting or diarrhea. Patient denies any urinary burning or frequency. On 09/29/2018 patient is much more awake and alert. Creatinine improving to 1.25. White blood count is more elevated today at 14.6. Source of infection is not clear urine culture is negative chest x-ray revealing possible left lower lobe infiltrate and hilar adenopathy and possible mass at this time will obtain computed tomography scan of the chest without contrast. Continue IV Rocephin. Clinically patient is complaining of back pain otherwise she denies any complaints there is no fever or chills no headache or dizziness no chest pain no shortness of breath no cough no nausea or vomiting no abdominal pain no diarrhea or constipation and no urinary symptoms. On 09/30/2018 patient was seen and examined on the medical floor she is alert and oriented 3 in no apparent distress he is complaining of anxiety, otherwise no complaints at this time, there is no fever or chills no headache or dizziness no chest pain no shortness of breath no cough no nausea or vomiting no abdominal pain no diarrhea and no urinary symptoms. Kidney functions improved significantly since admission today BUN 36 and creatinine 1.24 Objective - Vital Signs Vital signs: Vital Signs Temp 98.0 F 09/30/18 08:53 Pulse 67 09/30/18 08:53 Resp 18 09/30/18 08:53 BP 106/65 09/30/18 08:53 Pulse Ox 98 09/30/18 08:53 Intake & Output 09/29/18 09/30/18 09/30/18 18:59 06:59 18:59 Intake Total 160 120 Balance 160 120 Weight 131.5 kg Intake: Intake, IV Titration 100 Amount Sodium Chloride 0.45% 1, 100 000 ml @ 50 mls/hr IV . Q20H [facility] Rx#:[id number] Oral 60 120 Other: Voiding Method Toilet Toilet # Voids 1 3 - Exam Head normocephalic and atraumatic Neck supple no JVD no goiter Lungs clear to auscultation bilaterally no wheezing or crackles Heart regular rate and rhythm S1-S2, no rub or gallop Abdomen is soft nontender nondistended positive bowel sounds no hepatosplenomegaly Extremities no edema no cyanosis or clubbing Neuro alert and orientated to 3. Sitting up on the edge of her bed eating her meal answering questions appropriately Patient does have equal strength throughout all extremities. No facial droop noted. Speech is clear. - Labs CBC & Chem 7: 09/30/18 06:09 09/30/18 06:09 Labs: Abnormal Lab Results - Last 24 Hours (Table) 09/29/18 09/29/18 09/29/18 Range/Units 12:13 16:48 21:11 WBC (3.8-10.6) k/uL MCV (80.0-100.0) fL Plt Count (150-450) k/uL Neutrophils # (1.3-7.7) k/uL BUN (7-17) mg/dL Creatinine (0.52-1.04) mg/dL Glucose (74-99) mg/dL POC Glucose (mg/dL) 221 H 141 H 130 H (75-99) mg/dL AST (14-36) U/L 09/30/18 09/30/18 09/30/18 Range/Units 06:09 06:09 06:13 WBC 13.2 H (3.8-10.6) k/uL MCV 100.5 H (80.0-100.0) fL Plt Count 149 L (150-450) k/uL Neutrophils # 10.5 H (1.3-7.7) k/uL BUN 36 H (7-17) mg/dL Creatinine 1.24 H (0.52-1.04) mg/dL Glucose 179 H (74-99) mg/dL POC Glucose (mg/dL) 158 H (75-99) mg/dL AST 40 H (14-36) U/L Microbiology - Last 24 Hours (Table) 09/25/18 12:09 Blood Culture - Preliminary Blood No Growth after 96 hours Assessment and Plan Plan: 1. Altered mental status changes likely related to encephalopathy secondary to uremia as well as drug effect from opiotes and benzos with advanced renal failure. Questionable medication overdose. Per patient's family and nursing staff all pills correctly accounted for. Drug screen has been ordered. head CT completed showing motion limited exam. There is hypodensity involving the posterior right parietal lobe. Correlate for possible subacute or chronic infarct no mass effect or midline shift. No acute intracranial hemorrhage, mass effect or midline shift. 2. Acute kidney injury and acute tubular necrosis with solitary kidney. Creatinine 6.79 and bun 83. Potassium also elevated at 5.4. Patient denies any recent illness. Dr. Mitchell has been consulted for nephrology services. Ultrasound of kidneys and bladder ordered per nephrology. Normal saline at 75. Indwelling Enriquez catheter in place. ultrasound of kidneys renal and bladder completed showing nondiagnostic exam. Discussed case with Dr. Flor per nephrology. Patient underwent emergent hemodialysis yesterday with placement of catheter per Dr. Durant. Creatinine is continue to trend down to 1.38 and bun 50 3. Leukocytosis. White blood cell elevated at 15.4. Chest x-ray, urinary analysis and blood culture ordered. Patient has been afebrile. Dr. Lance has been consulted for critical care and pulmonary management. Patient remains on Rocephin for IV antibiotics for possible pneumonia and/or UTI. White blood cells are trending up to 14.6. Source of infection not well established chest x -ray revealing possible left lower lobe infiltrate and possible right hilar adenopathy and possible mass Will obtain computed tomography scan of the chest without contrast for further evaluation 4. History of DVT. Eliquis has been resumed to be restarted after head CT completed. she not tolerating pills at this time. Discussed with oncology will switch patient over to Lovenox 1 mg/kg per pharmacy to dose due to renal dosing 5. Diabetes mellitus. Home insulin ordered for sliding scale coverage. Hemoglobin A1c 7.7 6. History of COPD 7. History of essential hypertension. Multiple blood pressure patient currently on hold due to acute kidney injury. Patient also with blood pressure systolic in the 90s. Patient is now having hypertension. Home dose of Catapres has been added. 8. atenolol has been increasedHistory of asthma 9. History of arthritis 10. History of nephrectomy 11. Metabolic acidosis secondary to advanced renal failure continue IV bicarb at this time per nephrology 12. Tachycardia. Heart rate increasing to 130s throughout night. Cardiology services have been consulted DVT prophylaxis Lovenox. GI prophylaxis Protonix Patient is improving significantly possible discharge in the next 1-2 days blood pressure medication are still being adjusted at this time
[2018-09-30] MEDS: MONTELUKAST 10 MG TAB PO SCH (09:39)
[2018-09-30] MEDS: CHLORTHALIDONE 25 MG TAB PO SCH (09:39)
[2018-09-30] MEDS: NIFEdipine XL 90 MG TAB.ER.24 PO SCH (09:39)
[2018-09-30] MEDS: cloNIDine HCL 0.1 MG TAB PO SCH (09:39)
[2018-09-30] MEDS: LISINOPRIL 20 MG TAB PO SCH (09:39)
[2018-09-30] MEDS: hydrALAZINE HCL 50 MG TAB PO SCH ×2 (09:39→21:40)
[2018-09-30] MEDS: ENOXAPARIN 150 MG/ML SYRINGE SQ SCH ×2 (09:40→21:42)
[2018-09-30] MEDS: DOCUSATE 100 MG CAP PO SCH ×2 (09:40→21:43)
[2018-09-30 11:34] LABS: Glucose,Whole Blood 140 mg/dL (75-99)
[2018-09-30] MEDS: SODIUM CHLORIDE 0.45% 1,000 ML IV SCH (12:30)
--- NOTE | 2018-09-30 15:33 | PN ---
PROGRESS NOTE This patient was seen for uncontrolled hypertension. The patient is doing better. Patient states she took her Xanax yesterday and after that her blood pressure came down. She is feeling good. Blood pressure now is 134/84 mmHg. First and second heart sounds are normal. Lungs are clear to auscultation and percussion. Patient will be ambulated and we will decrease the dose of clonidine to 0.2 mg b.i.d. If patient's blood pressure remains stable, the patient can be discharged home tomorrow. MMODL / IJN: [id number] /
[2018-09-30 16:46] LABS: Glucose,Whole Blood 136 mg/dL (75-99)
[2018-09-30 20:25] LABS: Glucose,Whole Blood 169 mg/dL (75-99)
[2018-09-30] MEDS: cloNIDine HCL 0.2 MG TAB PO SCH (21:41)
[2018-09-30] MEDS: INSULIN DETEMIR (LEVEMIR) 100 UNIT/ML SYR SQ SCH (21:41)
[2018-10-01] MEDS: SODIUM CHLORIDE 0.45% 1,000 ML IV SCH (05:46)
[2018-10-01 06:04] LABS: Glucose,Whole Blood 122 mg/dL (75-99)
[2018-10-01 06:32] LABS: Basophils # (A) 0.1 k/uL (0-0.2); Basophils % (A) 1 %; Eosinophils # (A) 0.3 k/uL (0-0.7); Eosinophils % (A) 2 %; HGB 13.4 gm/dL (11.4-16.0); Hypochromasia Slight; Lymphocytes # (A) 1.7 k/uL (1.0-4.8); Lymphocytes % (A) 12 %; MCH 30.7 pg (25.0-35.0); MCHC 31.2 g/dL (31.0-37.0); MCV 98.5 fL (80.0-100.0); Mean Platelet Volume 7.4; Monocytes # (A) 0.9 k/uL (0-1.0); Monocytes % (A) 6 %; Neutrophils # (A) 11.3 k/uL (1.3-7.7); Neutrophils % (A) 77 %; Platelet Count 182 k/uL (150-450); RBC 4.37 m/uL (3.80-5.40); RDW 12.3 % (11.5-15.5); WBC 14.6 k/uL (3.8-10.6)
[2018-10-01 06:43] LABS: Albumin 3.6 g/dL (3.5-5.0); Calcium 9.3 mg/dL (8.4-10.2); Total Bilirubin 0.8 mg/dL (0.2-1.3); Total Protein 6.7 g/dL (6.3-8.2)
[2018-10-01] MEDS: INSULIN ASPART (NovoLOG) 100 UNIT/ML VIAL SQ SCH ×4 (06:48→22:02)
[2018-10-01] MEDS: DOCUSATE 100 MG CAP PO SCH ×2 (08:17→22:02)
[2018-10-01] MEDS: CARVEDILOL 12.5 MG TAB PO SCH ×2 (08:17→17:09)
[2018-10-01] MEDS: cloNIDine HCL 0.2 MG TAB PO SCH ×2 (08:17→20:34)
[2018-10-01] MEDS: CHLORTHALIDONE 25 MG TAB PO SCH (08:17)
[2018-10-01] MEDS: PANTOPRAZOLE 40 MG TABLET PO SCH (08:17)
[2018-10-01] MEDS: LISINOPRIL 20 MG TAB PO SCH (08:17)
[2018-10-01] MEDS: hydrALAZINE HCL 50 MG TAB PO SCH ×3 (08:17→23:16)
[2018-10-01] MEDS: NIFEdipine XL 90 MG TAB.ER.24 PO SCH (08:17)
[2018-10-01] MEDS: ENOXAPARIN 150 MG/ML SYRINGE SQ SCH (08:17)
[2018-10-01] MEDS: ACETAMINOPHEN TAB 500 MG TAB PO PRN ×3 (08:18→20:44)
[2018-10-01] MEDS: MONTELUKAST 10 MG TAB PO SCH (08:18)
[2018-10-01] MEDS: ALPRAZolam 0.25 MG TAB PO PRN ×4 (08:21→23:17)
--- NOTE | 2018-10-01 09:39 | US ---
EXAMINATION TYPE: US renal artery duplex complete DATE OF EXAM: 10/01/2018 COMPARISON: US CLINICAL HISTORY: uncontrolled htn; diabetic; left nephrectomy 2001; very large body habitus at 290lb s. MEASUREMENTS: RENAL SIZE: Rt Kidney: 12.1 x 5.8 x 5.5cm Lt Kidney: surgically removed RESISTANCE INDEX Right: 0.64 RA/AO RATIO (< 3.5 ) Right: 1.7 RA VELOCITY ( < 180 cm/s) Right: 159.4cm/s proximally and rechecked Aorta size is wnl as visualized upper and mid aorta; lower aorta is obscured by bowel gas. Mildly dustin vated PSV throughout right renal artery and may be compensatory due to left nephrectomy, however, PSV is still wnl. Right renal US: no hydronephrosis or masses are seen. IMPRESSION: 1. Post left nephrectomy with no diagnostic evidence of renal artery stenosis on the right.
--- NOTE | 2018-10-01 10:08 | P.PN ---
Subjective Patient is seen in follow-up for acute kidney injury on chronic kidney disease. Patient underwent 1 treatment of hemodialysis this admission. Dialysis catheter has been removed. Patient does have chronic kidney disease stage III secondary to solitary right kidney. Currently resting in bed. Admits to good urine output. Admits to loose bowel movements. No vomiting. Oral intake is fair. Vital signs are stable. General: The patient appeared well nourished and normally developed. HEENT: Head exam is unremarkable. Neck is without jugular venous distension. LUNGS: Lungs are clear to auscultation and percussion. Breath sounds decreased. HEART: Rate and Rhythm are regular. First and second heart sounds normal. No murmurs, rubs or gallops. ABDOMEN: Abdominal exam reveals normal bowel sounds. Non-tender and non- distended. No evidence of peritonitis. EXTREMITITES: No clubbing, cyanosis, or edema. Objective - Vital Signs Vital signs: Vital Signs Temp 98.8 F 10/01/18 07:38 Pulse 54 L 10/01/18 07:38 Resp 16 10/01/18 07:38 BP 181/87 10/01/18 07:38 Pulse Ox 98 10/01/18 08:55 Intake & Output 09/30/18 10/01/18 10/01/18 18:59 06:59 18:59 Intake Total 360 Output Total 2 Balance 358 Weight 129.1 kg Intake: Oral 360 Output: Urine 1 Stool 1 Other: Voiding Method Toilet Toilet # Voids 1 1 - Labs CBC & Chem 7: 10/01/18 05:54 10/01/18 05:54 Labs: Abnormal Lab Results - Last 24 Hours (Table) 09/30/18 09/30/18 09/30/18 Range/Units 11:27 16:44 20:24 WBC (3.8-10.6) k/uL Neutrophils # (1.3-7.7) k/uL BUN (7-17) mg/dL Creatinine (0.52-1.04) mg/dL Glucose (74-99) mg/dL POC Glucose (mg/dL) 140 H 136 H 169 H (75-99) mg/dL AST (14-36) U/L ALT (9-52) U/L 10/01/18 10/01/18 10/01/18 Range/Units 05:54 05:54 06:02 WBC 14.6 H (3.8-10.6) k/uL Neutrophils # 11.3 H (1.3-7.7) k/uL BUN 31 H (7-17) mg/dL Creatinine 1.23 H (0.52-1.04) mg/dL Glucose 135 H (74-99) mg/dL POC Glucose (mg/dL) 122 H (75-99) mg/dL AST 73 H (14-36) U/L ALT 66 H (9-52) U/L Microbiology - Last 24 Hours (Table) 09/25/18 12:09 Blood Culture - Preliminary Blood No Growth after 120 hours Assessment and Plan Plan: Assessment: 1. Acute kidney injury secondary to ATN. Resolved. Patient underwent 1 treatment of hemodialysis this admission with subsequent recovery of renal function. 2. Chronic kidney disease stage III with baseline creatinine near 1.2-1.3 secondary to solitary right kidney. 3. Status post left-sided nephrectomy several years ago due to renal cell carcinoma. 4. Hypertension with chronic kidney disease. Blood pressures on the higher side. Plan: Increase hydralazine to 50 mg 3 times daily. Avoid nephrotoxins.
[2018-10-01] MEDS: ALBUTEROL NEBULIZED 2.5 MG/3 ML INHALATION PRN (11:37)
[2018-10-01 11:46] LABS: Glucose,Whole Blood 131 mg/dL (75-99)
--- NOTE | 2018-10-01 12:17 | US ---
EXAMINATION TYPE: US liver DATE OF EXAM: 10/01/2018 COMPARISON: NONE CLINICAL HISTORY: Elevated liver enzymes; diabetic; on anticholesterol meds; left nephrectomy EXAM MEASUREMENTS: Liver Length: 17.3 cm Gallbladder Wall: 0.1 cm CBD: 0.4 cm Right Kidney: 11.2 x 5.4 x 5.6 cm Large body habitus at 284 lb. Pancreas: mid and tail obscured by overlying bowel gas Liver: no masses are seen Gallbladder: wnl Evidence for sonographic Cope's sign: no CBD: wnl Right Kidney: No hydronephrosis or masses seen IMPRESSION: Limited exam demonstrates no definite acute process.
--- NOTE | 2018-10-01 12:24 | P.PN ---
Subjective Progress Note Date: 10/01/18 This is a 63-year-old female patient presented to the hospital with altered mental status changes. Patient currently follows with pain clinic. According to records and patient's daughter at bedside patient took 2 Percocet along with 2 MS Contin two night ago. Upon waking patient was increasingly weak. Patient' s family urged patient to go to hospital for further evaluation. Patient went to [facility] in which she received Narcan. She also on acute renal failure with creatinine of 6.79. Patient was then transferred to [facility] for further evaluation. She denies any recent illness with diarrhea or emesis. Patient does reports she continue meds as prescribed. Patient has past medical history of asthma, cancer, COPD, diabetes mellitus, DVT which she takes eliquis, hypertension, renal disease, Rahul filter and chronic pain from arthritis. During examination patient was alert and oriented 3 but very drowsy. Patient would often fall asleep during conversation. Patient has not received any narcotics for 24 hours. Patient's daughter at bedside also reports that patient has been delusional lately. On examination patient does follow commands and has equal strength throughout all extremities. No facial droop noted. Speech is clear. At this time drug screen has been ordered. CT of head ordered. Dr. Mitchell has been consulted for nephrology. All narcotics currently on hold. EKG ordered. Chest x-ray ordered. Urinary analysis and culture ordered. Patient denies any chest pain. Patient is complaining of nonproductive cough. Patient denies nausea vomiting or diarrhea. Patient denies any urinary burning or frequency. on 09/26/2018 patient more lethargic and confused today. Patient does wake up and follows commands. Discussed case with nephrology services planning to place a dialysis catheter and emergent dialysis due to increased confusion. Creatinine is trending down. Per nephrology will not likely require chronic dialysis. Patient not taking pills. Will switch patient to Lovenox 1 mg/kg pharmacy to dose for DVT treatment. Medication to be given after hemodialysis catheter placed. Also discussed with critical care services. Consult placed. ABG's ordered. On 09/27/2018 patient appears more alert and less sleepy today. Patient does answer questions all appropriately. Patient underwent emergent dialysis yesterday. Patient's creatinine improving to 1.92. At this time patient denies any nausea vomiting or diarrhea. Patient denies any urinary burning or frequency. Patient remains on Lovenox 1 mg/kg pharmacy dosing. Dr. Bhakta per critical care and nephrology services are following On 09/28/2018 patient is much more awake and alert. Patient is answering questions appropriately. Creatinine improving to 1.38. Patient did have episodes of tachycardia last night with heart rate increasing to 130s. Will consult cardiology services. Patient also having high blood pressure. Blood pressures have been adjusted. We'll continue to monitor. This time patient denies chest pain or shortness breath. Patient denies nausea vomiting or diarrhea. Patient denies any urinary burning or frequency. On 09/29/2018 patient is much more awake and alert. Creatinine improving to 1.25. White blood count is more elevated today at 14.6. Source of infection is not clear urine culture is negative chest x-ray revealing possible left lower lobe infiltrate and hilar adenopathy and possible mass at this time will obtain computed tomography scan of the chest without contrast. Continue IV Rocephin. Clinically patient is complaining of back pain otherwise she denies any complaints there is no fever or chills no headache or dizziness no chest pain no shortness of breath no cough no nausea or vomiting no abdominal pain no diarrhea or constipation and no urinary symptoms. On 09/30/2018 patient was seen and examined on the medical floor she is alert and oriented 3 in no apparent distress he is complaining of anxiety, otherwise no complaints at this time, there is no fever or chills no headache or dizziness no chest pain no shortness of breath no cough no nausea or vomiting no abdominal pain no diarrhea and no urinary symptoms. Kidney functions improved significantly since admission today BUN 36 and creatinine 1.24 On 10/01/2018 patient is alert and oriented 3. Creatinine trending down at 1.3. White blood cell remains elevated at 14.6. Elevated liver enzymes AST 73 ALT 56. Will order ultrasound of liver. This time patient denies chest pain or shortness of breath. Patient denies nausea vomiting or diarrhea. Patient denies any urinary burning or frequency Objective - Vital Signs Vital signs: Vital Signs Temp 98.8 F 10/01/18 07:38 Pulse 68 10/01/18 11:47 Resp 16 10/01/18 07:38 BP 181/87 10/01/18 07:38 Pulse Ox 98 10/01/18 08:55 Intake & Output 09/30/18 10/01/18 10/01/18 18:59 06:59 18:59 Intake Total 360 Output Total 2 Balance 358 Weight 129.1 kg Intake: Oral 360 Output: Urine 1 Stool 1 Other: Voiding Method Toilet Toilet # Voids 1 1 - Exam Head normocephalic Neck supple Lungs clear to auscultation bilaterally no wheezing or crackles Heart regular rate and rhythm S1-S2, no rub or gallop Abdomen is soft nontender nondistended positive bowel sounds no hepatosplenomegaly Extremities no edema Neuro alert and orientated to 3. Patient is very drowsy but arousable. Patient does have equal strength throughout all extremities. No facial droop noted. Speech is clear. - Labs CBC & Chem 7: 10/01/18 05:54 10/01/18 05:54 Labs: Abnormal Lab Results - Last 24 Hours (Table) 09/30/18 09/30/18 10/01/18 Range/Units 16:44 20:24 05:54 WBC 14.6 H (3.8-10.6) k/uL Neutrophils # 11.3 H (1.3-7.7) k/uL BUN (7-17) mg/dL Creatinine (0.52-1.04) mg/dL Glucose (74-99) mg/dL POC Glucose (mg/dL) 136 H 169 H (75-99) mg/dL AST (14-36) U/L ALT (9-52) U/L 10/01/18 10/01/18 10/01/18 Range/Units 05:54 06:02 11:23 WBC (3.8-10.6) k/uL Neutrophils # (1.3-7.7) k/uL BUN 31 H (7-17) mg/dL Creatinine 1.23 H (0.52-1.04) mg/dL Glucose 135 H (74-99) mg/dL POC Glucose (mg/dL) 122 H 131 H (75-99) mg/dL AST 73 H (14-36) U/L ALT 66 H (9-52) U/L Microbiology - Last 24 Hours (Table) 09/25/18 12:09 Blood Culture - Preliminary Blood No Growth after 120 hours Assessment and Plan Assessment: 1. Altered mental status changes likely related to encephalopathy secondary to uremia as well as drug effect from opiotes and benzos with advanced renal failure. Questionable medication overdose. Per patient's family and nursing staff all pills correctly accounted for. Drug screen has been ordered. head CT completed showing motion limited exam. There is hypodensity involving the posterior right parietal lobe. Correlate for possible subacute or chronic infarct no mass effect or midline shift. No acute intracranial hemorrhage, mass effect or midline shift. 2. Acute kidney injury and acute tubular necrosis with solitary kidney. Creatinine 6.79 and bun 83. Potassium also elevated at 5.4. Patient denies any recent illness. Dr. Mitchell has been consulted for nephrology services. Ultrasound of kidneys and bladder ordered per nephrology. Normal saline at 75. Indwelling Enriquez catheter in place. ultrasound of kidneys renal and bladder completed showing nondiagnostic exam. Discussed case with Dr. Flor per nephrology. Patient underwent emergent hemodialysis yesterday with placement of catheter per Dr. Durant. Creatinine is continue to trend down to 1.23 3. Leukocytosis. White blood cell elevated at 15.4. Chest x-ray, urinary analysis and blood culture ordered. Patient has been afebrile. Dr. Lance has been consulted for critical care and pulmonary management. Patient remains on Rocephin for IV antibiotics for possible pneumonia and/or UTI. White blood cells are trending up to 14.6. Source of infection not well established chest x -ray revealing possible left lower lobe infiltrate and possible right hilar adenopathy and possible mass Will obtain computed tomography scan of the chest without contrast for further evaluation 4. History of DVT. Eliquis has been resumed to be restarted after head CT completed. she not tolerating pills at this time. Discussed with oncology will switch patient over to Lovenox 1 mg/kg per pharmacy to dose due to renal dosing. Eliquis has been resumed 5. Diabetes mellitus. Home insulin ordered for sliding scale coverage. Hemoglobin A1c 7.7 6. History of COPD 7. History of essential hypertension. Multiple blood pressure patient currently on hold due to acute kidney injury. Patient also with blood pressure systolic in the 90s. Patient is now having hypertension. Home dose of Catapres has been added. Renal ultrasound completed showing no hydronephrosis or masses. Post left nephrectomy with no diagnostic evidence of renal artery stenosis. Hydralazine has been increased to 3 times a day 8. History of asthma 9. History of arthritis 10. History of nephrectomy 11. Metabolic acidosis secondary to advanced renal failure continue IV bicarb at this time per nephrology 12. Tachycardia. Heart rate increasing to 130s throughout night. Cardiology services have been consulted. atenolol has been increased 13. Elevated liver enzymes. Liver ultrasound will be ordered DVT prophylaxis Lovenox. GI prophylaxis Protonix Patient is improving significantly possible discharge in the next 1-2 days blood pressure medication are still being adjusted at this time I performed an examination of the patient and discussed their management with the Nurse Practitioner. I have reviewed the Nurse Practitioner's notes and agree with the documented findings and plan of care
[2018-10-01 14:45] VITALS: BMI 45.9
--- NOTE | 2018-10-01 15:05 | P.PN ---
Subjective Progress Note Date: 10/01/18 This is a 63-year-old white female patient of Dr. Michelle, with a past medical history of asthma, diabetes mellitus type 2, hypertension, chronic pain, history of DVT on chronic anticoagulation, obstructive sleep apnea on CPAP. Patient was brought into the hospital on 2018 for evaluation of altered mental status changes, weakness. Patient presented to the [facility], patient is on MS Contin, and Percocet for chronic pain, given a dose of Narcan and was transferred to [facility] for further evaluation, she was found to be in acute kidney failure with a creatinine of 6.79. Her previous creatinine on 05/23/2017 was 1.36. Denied any recent fever, or chills, no nausea, vomiting or diarrhea. Denied any urinary symptoms. She does have a solitary kidney. Patient was on George inhibitors at home, no history of NSAID use prior to admission. Brain CT showed hypodensity involving the posterior right parietal lobe possibly related to subacute or chronic infarct, no acute intracranial process. Initial chest x-ray showed markedly limited exam due to hypoventilatory lungs, central venous congestion, and prominence of the right hilum. Patient was hydrated, she was given oral sodium bicarb replacements and was switched to IV bicarb infusion. Ultrasound of the abdomen was nondiagnostic. Blood work showed white blood cell count of 15.2, hemoglobin of 12.8, sodium was 139, potassium 6.3, chloride was 111, CO2 was 16, BUN was 94, creatinine was 5.8, moderate leuks, and WBCs of 89. Drug screen was positive for opiates and benzodiazepine. She was started on antibiotic coverage in the form of Rocephin, and IV hydration, and her renal profile improved some, with BUN at 95 and creatinine of 4.87 on today's labs. However her mentation was failing to improve, patient was persistently very lethargic, she has been seen in consultation by pulmonary services. A cardiology consultation was requested today because of accelerated hypertension. Blood pressure at 11 AM this morning 164/70, the time of my examination 198/102. She is complaining of a significant amount of back pain as the right groin sheath from her hemodialysis has just been removed and she's required to lay flat. Blood cell count today 13.9, hemoglobin 13, platelet count 170. Sodium 142, potassium 4.2, BUN 15 creatinine 1.3. To 2018 Patient was seen and examined this morning, overall feeling better. Eager to be discharged home today. Her blood pressure earlier this morning was 180/87, repeat blood pressure 176/90. We will increase her dose of Coreg to 50 mg by mouth twice a day today. Continue the rest of her medications. Objective - Vital Signs Vital signs: Vital Signs Temp 98.4 F 10/01/18 12:00 Pulse 61 10/01/18 12:00 Resp 16 10/01/18 12:00 BP 176/91 10/01/18 12:00 Pulse Ox 99 10/01/18 12:00 Intake & Output 09/30/18 10/01/18 10/01/18 18:59 06:59 18:59 Intake Total 360 240 Output Total 2 Balance 358 240 Weight 129.1 kg 129.1 kg Intake: Oral 360 240 Output: Urine 1 Stool 1 Other: Voiding Method Toilet Toilet # Voids 1 1 - Exam GENERAL EXAM: Somnolent, obese 63-year-old -[place] female, in no acute distress at the time of my examination HEAD: Normocephalic/atraumatic. EYES: Normal reaction of pupils, equal size. Conjunctiva pink, sclera white. NOSE: Clear with pink turbinates. THROAT: No erythema or exudates. NECK: No masses, no JVD, no thyroid enlargement, no adenopathy. CHEST: No chest wall deformity. Symmetrical expansion. LUNGS: Equal air entry with a few scattered rhonchi, diminished breath sounds at the bases, no dullness, no wheezing CVS: Regular rate and rhythm, normal S1 and S2, no gallops, no murmurs, no rubs ABDOMEN: Soft, nontender. No hepatosplenomegaly, normal bowel sounds, no guarding or rigidity. EXTREMITIES: No clubbing, no edema, no cyanosis, 2+ pulses and upper and lower extremities. MUSCULOSKELETAL: Muscle strength and tone normal. SPINE: No scoliosis or deformity SKIN: No rashes CENTRAL NERVOUS SYSTEM: Alert and oriented 3 - Labs CBC & Chem 7: 10/01/18 05:54 10/01/18 05:54 Labs: Abnormal Lab Results - Last 24 Hours (Table) 09/30/18 09/30/18 10/01/18 Range/Units 16:44 20:24 05:54 WBC 14.6 H (3.8-10.6) k/uL Neutrophils # 11.3 H (1.3-7.7) k/uL BUN (7-17) mg/dL Creatinine (0.52-1.04) mg/dL Glucose (74-99) mg/dL POC Glucose (mg/dL) 136 H 169 H (75-99) mg/dL AST (14-36) U/L ALT (9-52) U/L 10/01/18 10/01/18 10/01/18 Range/Units 05:54 06:02 11:23 WBC (3.8-10.6) k/uL Neutrophils # (1.3-7.7) k/uL BUN 31 H (7-17) mg/dL Creatinine 1.23 H (0.52-1.04) mg/dL Glucose 135 H (74-99) mg/dL POC Glucose (mg/dL) 122 H 131 H (75-99) mg/dL AST 73 H (14-36) U/L ALT 66 H (9-52) U/L Microbiology - Last 24 Hours (Table) 09/25/18 12:09 Blood Culture - Final Blood No Growth after 144 hours Assessment and Plan Plan: Assessment: #1. Altered mental status, increased lethargy, and blood gas showed mixed respiratory and metabolic acidosis. Chest x-ray showed left basilar atelectasis or infiltrate #2. Acute kidney injury, likely related to acute tubular necrosis. Nephrology is following, hemodialysis treatment has been initiated after aggressive IV hydration #3. Hyperkalemia #4. History of nephrectomy #5. Hypertension, uncontrolled #6. Non-anion gap metabolic acidosis related to renal failure #7. History of deep venous thrombosis, on Eliquis #8. History of chronic bronchial asthma #9. Possible urinary tract infection #10. Chronic pain syndrome Plan Echocardiogram with Doppler study revealed an ejection fraction of 50%. Increase Coreg to 50 mg one tablet by mouth twice a day. She may be able to be discharged home once cleared by primary. DNP note has been reviewed, I agree with a documented findings and plan of care. Patient was seen and examined.
[2018-10-01 16:27] LABS: Glucose,Whole Blood 207 mg/dL (75-99)
[2018-10-01] MEDS: APIXABAN 5 MG TAB PO SCH (20:34)
[2018-10-01 21:16] LABS: Glucose,Whole Blood 118 mg/dL (75-99)
[2018-10-01] MEDS: INSULIN DETEMIR (LEVEMIR) 100 UNIT/ML SYR SQ SCH (22:02)
[2018-10-02] MEDS: ACETAMINOPHEN TAB 500 MG TAB PO PRN ×2 (03:08→10:14)
[2018-10-02] MEDS: ALPRAZolam 0.25 MG TAB PO PRN ×2 (03:08→07:53)
[2018-10-02] MEDS: SODIUM CHLORIDE 0.45% 1,000 ML IV SCH (05:17)
[2018-10-02] MEDS: INSULIN ASPART (NovoLOG) 100 UNIT/ML VIAL SQ SCH ×2 (06:29→12:33)
[2018-10-02] MEDS: CARVEDILOL 12.5 MG TAB PO SCH (06:31)
[2018-10-02] MEDS: PANTOPRAZOLE 40 MG TABLET PO SCH (06:31)
[2018-10-02 06:34] LABS: Glucose,Whole Blood 107 mg/dL (75-99)
[2018-10-02 07:26] VITALS: RESP 16
[2018-10-02] MEDS: CHLORTHALIDONE 25 MG TAB PO SCH (07:52)
[2018-10-02] MEDS: APIXABAN 5 MG TAB PO SCH (07:52)
[2018-10-02] MEDS: DOCUSATE 100 MG CAP PO SCH (07:52)
[2018-10-02] MEDS: cloNIDine HCL 0.2 MG TAB PO SCH (07:53)
[2018-10-02] MEDS: LISINOPRIL 20 MG TAB PO SCH (07:53)
[2018-10-02] MEDS: MONTELUKAST 10 MG TAB PO SCH (07:53)
[2018-10-02] MEDS: NIFEdipine XL 90 MG TAB.ER.24 PO SCH (07:53)
[2018-10-02] MEDS: hydrALAZINE HCL 50 MG TAB PO SCH (07:53)
[2018-10-02] MEDS: ALBUTEROL NEBULIZED 2.5 MG/3 ML INHALATION PRN ×2 (08:10→11:42)
[2018-10-02 09:12] LABS: Basophils # (A) 0.1 k/uL (0-0.2); Basophils % (A) 0 %; Eosinophils # (A) 0.2 k/uL (0-0.7); Eosinophils % (A) 2 %; HCT 44.4 % (34.0-46.0); HGB 14.5 gm/dL (11.4-16.0); Lymphocytes # (A) 1.4 k/uL (1.0-4.8); Lymphocytes % (A) 13 %; MCH 30.8 pg (25.0-35.0); MCHC 32.6 g/dL (31.0-37.0); MCV 94.4 fL (80.0-100.0); Mean Platelet Volume 9.1; Monocytes # (A) 0.7 k/uL (0-1.0); Monocytes % (A) 7 %; Neutrophils # (A) 8.5 k/uL (1.3-7.7); Neutrophils % (A) 77 %; Platelet Count 158 k/uL (150-450); RDW 12.7 % (11.5-15.5); WBC 11.1 k/uL (3.8-10.6)
[2018-10-02 09:16] LABS: Calcium 9.6 mg/dL (8.4-10.2); Total Bilirubin 0.9 mg/dL (0.2-1.3); Total Protein 7.3 g/dL (6.3-8.2)
[2018-10-02 09:20] LABS: Potassium 4.7 mmol/L (3.5-5.1)
[2018-10-02 11:31] VITALS: BP 150/67; TEMP 97.7
[2018-10-02 11:31] LABS: Glucose,Whole Blood 187 mg/dL (75-99)
[2018-10-02 11:46] VITALS: PULSE 60
--- NOTE | 2018-10-02 12:24 | P.DS ---
Providers Date of admission: 09/24/18 17:15 Expected date of discharge: 10/02/18 Attending physician: Lelo Michelle Consults: 09/24/18 17:15 Consult Physician Urgent Consulting Provider: Leatha Mitchell Consult Reason/Comments: Acute renal failure Do you want consulting provider notified?: Yes 09/26/18 09:42 Consult Physician Urgent Consulting Provider: Jose Durant Consult Reason/Comments: dialysis cath Do you want consulting provider notified?: Yes 09/26/18 10:05 Consult Physician Routine Consulting Provider: Verenice Yanez Consult Reason/Comments: critical care management Do you want consulting provider notified?: Yes 09/28/18 10:39 Consult Physician Routine Consulting Provider: Dagoberto Mccabe Consult Reason/Comments: Tachycardia Do you want consulting provider notified?: Yes Primary care physician: Lelo Michelle [facility] Course: Discharge diagnosis 1. Altered mental status changes likely related to encephalopathy secondary to uremia as well as drug effect from opiotes and benzos with advanced renal failure. Questionable medication overdose. Per patient's family and nursing staff all pills correctly accounted for. Drug screen has been ordered. head CT completed showing motion limited exam. There is hypodensity involving the posterior right parietal lobe. Correlate for possible subacute or chronic infarct no mass effect or midline shift. No acute intracranial hemorrhage, mass effect or midline shift. Resolved 2. Acute kidney injury and acute tubular necrosis with solitary kidney. Creatinine 6.79 and bun 83. Potassium also elevated at 5.4. Patient denies any recent illness. Dr. Mitchell has been consulted for nephrology services. Ultrasound of kidneys and bladder ordered per nephrology. Normal saline at 75. Indwelling Enriquez catheter in place. ultrasound of kidneys renal and bladder completed showing nondiagnostic exam. Discussed case with Dr. Flor per nephrology. Patient underwent emergent hemodialysis yesterday with placement of catheter per Dr. Durant. Creatinine is continue to trend down to 1.23 3. Leukocytosis. White blood cell elevated at 15.4. Chest x-ray, urinary analysis and blood culture ordered. Patient has been afebrile. Dr. Lance has been consulted for critical care and pulmonary management. Patient remains on Rocephin for IV antibiotics for possible pneumonia and/or UTI. White blood cells are trending up to 14.6. Source of infection not well established chest x -ray revealing possible left lower lobe infiltrate and possible right hilar adenopathy and possible mass Will obtain computed tomography scan of the chest without contrast for further evaluation. White blood cell improving to 11.1. Patient will be DC'd on Ceftin 500 twice a day for 5 days 4. History of DVT. Eliquis has been resumed 5. Diabetes mellitus. Home insulin ordered for sliding scale coverage. Hemoglobin A1c 7.7. Home insulin resumed upon discharge 6. History of COPD 7. History of essential hypertension. Multiple blood pressure patient currently on hold due to acute kidney injury. Patient also with blood pressure systolic in the 90s. Patient is now having hypertension. Home dose of Catapres has been added. Renal ultrasound completed showing no hydronephrosis or masses. Post left nephrectomy with no diagnostic evidence of renal artery stenosis. Hydralazine has been increased to 3 times a day 8. History of asthma 9. History of arthritis 10. History of nephrectomy 11. Metabolic acidosis secondary to advanced renal failure continue IV bicarb at this time per nephrology 12. Tachycardia. Heart rate increasing to 130s throughout night. Cardiology services have been consulted. Per cardiology patient Coreg Catapres Cipro and hydralazine has been increased. Patient's Aldactone, atenolol and Imdur discontinued 13. Elevated liver enzymes. Liver ultrasound completed showing limited exam that demonstrates no definitive acute process. AST elevated at 137 ALT 133. Patient followed closely with PCP. Repeat CMP has been ordered for 3 days Hospital course This is a 63-year-old female patient presented to the hospital with altered mental status changes. Patient currently follows with pain clinic. According to records and patient's daughter at bedside patient took 2 Percocet along with 2 MS Contin two night ago. Upon waking patient was increasingly weak. Patient' s family urged patient to go to hospital for further evaluation. Patient went to [facility] in which she received Narcan. She also on acute renal failure with creatinine of 6.79. Patient was then transferred to [facility] for further evaluation. She denies any recent illness with diarrhea or emesis. Patient does reports she continue meds as prescribed. Patient has past medical history of asthma, cancer, COPD, diabetes mellitus, DVT which she takes eliquis, hypertension, renal disease, [place] filter and chronic pain from arthritis. During examination patient was alert and oriented 3 but very drowsy. Patient would often fall asleep during conversation. Patient has not received any narcotics for 24 hours. Patient's daughter at bedside also reports that patient has been delusional lately. On examination patient does follow commands and has equal strength throughout all extremities. No facial droop noted. Speech is clear. At this time drug screen has been ordered. CT of head ordered. Dr. Mitchell has been consulted for nephrology. All narcotics currently on hold. EKG ordered. Chest x-ray ordered. Urinary analysis and culture ordered. Patient denies any chest pain. Patient is complaining of nonproductive cough. Patient denies nausea vomiting or diarrhea. Patient denies any urinary burning or frequency. on 09/26/2018 patient more lethargic and confused today. Patient does wake up and follows commands. Discussed case with nephrology services planning to place a dialysis catheter and emergent dialysis due to increased confusion. Creatinine is trending down. Per nephrology will not likely require chronic dialysis. Patient not taking pills. Will switch patient to Lovenox 1 mg/kg pharmacy to dose for DVT treatment. Medication to be given after hemodialysis catheter placed. Also discussed with critical care services. Consult placed. ABG's ordered. On 09/27/2018 patient appears more alert and less sleepy today. Patient does answer questions all appropriately. Patient underwent emergent dialysis yesterday. Patient's creatinine improving to 1.92. At this time patient denies any nausea vomiting or diarrhea. Patient denies any urinary burning or frequency. Patient remains on Lovenox 1 mg/kg pharmacy dosing. Dr. Bhakta per critical care and nephrology services are following On 09/28/2018 patient is much more awake and alert. Patient is answering questions appropriately. Creatinine improving to 1.38. Patient did have episodes of tachycardia last night with heart rate increasing to 130s. Will consult cardiology services. Patient also having high blood pressure. Blood pressures have been adjusted. We'll continue to monitor. This time patient denies chest pain or shortness breath. Patient denies nausea vomiting or diarrhea. Patient denies any urinary burning or frequency. On 09/29/2018 patient is much more awake and alert. Creatinine improving to 1.25. White blood count is more elevated today at 14.6. Source of infection is not clear urine culture is negative chest x-ray revealing possible left lower lobe infiltrate and hilar adenopathy and possible mass at this time will obtain computed tomography scan of the chest without contrast. Continue IV Rocephin. Clinically patient is complaining of back pain otherwise she denies any complaints there is no fever or chills no headache or dizziness no chest pain no shortness of breath no cough no nausea or vomiting no abdominal pain no diarrhea or constipation and no urinary symptoms. On 09/30/2018 patient was seen and examined on the medical floor she is alert and oriented 3 in no apparent distress he is complaining of anxiety, otherwise no complaints at this time, there is no fever or chills no headache or dizziness no chest pain no shortness of breath no cough no nausea or vomiting no abdominal pain no diarrhea and no urinary symptoms. Kidney functions improved significantly since admission today BUN 36 and creatinine 1.24 On 10/01/2018 patient is alert and oriented 3. Creatinine trending down at 1.3. White blood cell remains elevated at 14.6. Elevated liver enzymes AST 73 ALT 56. Will order ultrasound of liver. This time patient denies chest pain or shortness of breath. Patient denies nausea vomiting or diarrhea. Patient denies any urinary burning or frequency On 10/02/2018 patient is alert and oriented 3. Patient is eager to go home. White blood cell is trending down to 11.1. Patient will be DC'd on Ceftin 5 days. Liver enzymes are elevated. Will repeat in 2 days and patient to follow- up closely with her PCP. Patient denies chest pain or shortness of breath. Patient denies nausea vomiting or diarrhea. Patient denies any urinary burning or frequency. Blood pressure meds have been changed per cardiology. At this time blood pressure is improved. Patient will be DC'd and Coreg, Catapres, lisinopril, Procardia and hydralazine. Patient's home medications of Neurontin , MS IR and Celexa DC'd. Patient educated on the importance of following up closely with a CPM consulting providers for further management of chronic conditions.. I performed an examination of the patient and discussed their management with the Nurse Practitioner. I have reviewed the Nurse Practitioner's notes and agree with the documented findings and plan of care Patient Condition at Discharge: Stable Plan - Discharge Summary Discharge Rx Participant: Yes New Discharge Prescriptions: New Carvedilol [Coreg*] 25 mg PO BID-W/MEALS 30 Days #60 tab cloNIDine HCL [Catapres] 0.2 mg PO BID 30 Days #60 tab Lisinopril [Zestril] 20 mg PO DAILY 30 Days #30 tab NIFEdipine XL [Procardia XL] 90 mg PO DAILY 30 Days #30 tab.er.24 hydrALAZINE HCL [Apresoline] 50 mg PO TID 30 Days #90 tab Cefuroxime Axetil [Ceftin] 500 mg PO BID 5 Days #10 tab Continue Insulin Glargine [Lantus] 30 - 35 unit SQ HS INSULIN ASPART (NovoLOG) [NovoLOG (formulary)] 10 unit SQ TID Docusate Sodium [Dok] 100 mg PO BID Apixaban [Eliquis] 5 mg PO BID Omeprazole 20 mg PO DAILY Albuterol Inhaler [Ventolin Hfa Inhaler] 2 puff INHALATION RT-Q4H PRN PRN Reason: Shortness Of Breath Montelukast [Singulair] 10 mg PO DAILY Chlorthalidone [Hygroton] 25 mg PO DAILY ALPRAZolam [Xanax] 0.25 mg PO TID PRN 3 Days #9 tablet PRN Reason: Anxiety Discontinued cloNIDine HCL [Catapres] 0.1 mg PO BID Spironolactone 25 mg PO DAILY Lisinopril [Zestril] 10 mg PO DAILY Isosorbide Mononitrate ER [Imdur] 30 mg PO DAILY Citalopram Hydrobromide [CeleXA] 20 mg PO DAILY Atorvastatin [Lipitor] 80 mg PO HS Atenolol 12.5 mg PO DAILY Morphine Sulfate Ir [MSIR] 30 mg PO QID hydrALAZINE HCL 50 mg PO BID Gabapentin [Neurontin] 100 mg PO TID Discharge Medication List Albuterol Inhaler [Ventolin Hfa Inhaler] 2 puff INHALATION RT-Q4H PRN 09/24/18 [ History] Apixaban [Eliquis] 5 mg PO BID 09/24/18 [History] Docusate Sodium [Dok] 100 mg PO BID 09/24/18 [History] INSULIN ASPART (NovoLOG) [NovoLOG (formulary)] 10 unit SQ TID 09/24/18 [History] Insulin Glargine [Lantus] 30 - 35 unit SQ HS 09/24/18 [History] Montelukast [Singulair] 10 mg PO DAILY 09/24/18 [History] Omeprazole 20 mg PO DAILY 09/24/18 [History] Chlorthalidone [Hygroton] 25 mg PO DAILY 09/25/18 [History] ALPRAZolam [Xanax] 0.25 mg PO TID PRN 3 Days #9 tablet 10/02/18 [Rx] Carvedilol [Coreg*] 25 mg PO BID-W/MEALS 30 Days #60 tab 10/02/18 [Rx] Cefuroxime Axetil [Ceftin] 500 mg PO BID 5 Days #10 tab 10/02/18 [Rx] Lisinopril [Zestril] 20 mg PO DAILY 30 Days #30 tab 10/02/18 [Rx] NIFEdipine XL [Procardia XL] 90 mg PO DAILY 30 Days #30 tab.er.24 10/02/18 [Rx] cloNIDine HCL [Catapres] 0.2 mg PO BID 30 Days #60 tab 10/02/18 [Rx] hydrALAZINE HCL [Apresoline] 50 mg PO TID 30 Days #90 tab 10/02/18 [Rx] Follow up Appointment(s)/Referral(s): Lelo Michelle MD [Primary Care Provider] - 10/09/18 3:45 pm (Monday) Dagoberto Mccabe MD [STAFF PHYSICIAN] - 1 Week Ambulatory/Diagnostic Orders: Comprehensive Metabolic Panel [LAB.AMB] Time Frame: 3 Days, Location: None Selected Activity/Diet/Wound Care/Special Instructions: Diet heart healthy Activity as tolerated. CMP will be ordered for 2 days. Patient to follow-up closely with PCP consulting providers. Discharge Disposition: HOME SELF-CARE
--- NOTE | 2018-10-02 12:48 | P.PN ---
Subjective Patient is seen in follow-up for acute kidney injury on chronic kidney disease. Patient underwent 1 treatment of hemodialysis this admission. Dialysis catheter has been removed. Patient does have chronic kidney disease stage III secondary to solitary right kidney. Currently resting in bed. Admits to good urine output. No vomiting. Oral intake is fair. No active complaints at this time. Renal function stable. Vital signs are stable. General: The patient appeared well nourished and normally developed. HEENT: Head exam is unremarkable. Neck is without jugular venous distension. LUNGS: Lungs are clear to auscultation and percussion. Breath sounds decreased. HEART: Rate and Rhythm are regular. First and second heart sounds normal. No murmurs, rubs or gallops. ABDOMEN: Abdominal exam reveals normal bowel sounds. Non-tender and non- distended. No evidence of peritonitis. EXTREMITITES: No clubbing, cyanosis, or edema. Objective - Vital Signs Vital signs: Vital Signs Temp 97.7 F 10/02/18 11:29 Pulse 60 10/02/18 11:53 Resp 16 10/02/18 11:29 BP 150/67 10/02/18 11:29 Pulse Ox 99 10/02/18 11:29 Intake & Output 10/01/18 10/02/18 10/02/18 18:59 06:59 18:59 Intake Total 600 720 Balance 600 720 Weight 129.1 kg 128 kg Intake: Oral 600 720 Other: Voiding Method Toilet # Voids 1 1 1 - Labs CBC & Chem 7: 10/02/18 07:22 10/02/18 07:22 Labs: Abnormal Lab Results - Last 24 Hours (Table) 10/01/18 10/01/18 10/02/18 Range/Units 16:17 21:12 06:28 WBC (3.8-10.6) k/uL Neutrophils # (1.3-7.7) k/uL BUN (7-17) mg/dL Creatinine (0.52-1.04) mg/dL Glucose (74-99) mg/dL POC Glucose (mg/dL) 207 H 118 H 107 H (75-99) mg/dL AST (14-36) U/L ALT (9-52) U/L 10/02/18 10/02/18 10/02/18 Range/Units 07:22 07:22 11:11 WBC 11.1 H (3.8-10.6) k/uL Neutrophils # 8.5 H (1.3-7.7) k/uL BUN 30 H (7-17) mg/dL Creatinine 1.28 H (0.52-1.04) mg/dL Glucose 119 H (74-99) mg/dL POC Glucose (mg/dL) 187 H (75-99) mg/dL AST 137 H (14-36) U/L ALT 133 H (9-52) U/L Microbiology - Last 24 Hours (Table) 09/25/18 12:09 Blood Culture - Final Blood No Growth after 144 hours Assessment and Plan Plan: Assessment: 1. Acute kidney injury secondary to ATN. Resolved. Patient underwent 1 treatment of hemodialysis this admission with subsequent recovery of renal function. 2. Chronic kidney disease stage III with baseline creatinine near 1.2-1.3 secondary to solitary right kidney. GFR at baseline. 3. Status post left-sided nephrectomy several years ago due to renal cell carcinoma. 4. Hypertension with chronic kidney disease. Blood pressure better today. Plan: Maintain current antihypertensives. Avoid nephrotoxins. Stable to be discharged from nephrology standpoint. Follow up outpatient in the next 1-2 weeks.
--- NOTE | 2018-10-02 12:52 | P.PN ---
Subjective Progress Note Date: 10/02/18 This is a 63-year-old white female patient of Dr. Michelle, with a past medical history of asthma, diabetes mellitus type 2, hypertension, chronic pain, history of DVT on chronic anticoagulation, obstructive sleep apnea on CPAP. Patient was brought into the hospital on 2018 for evaluation of altered mental status changes, weakness. Patient presented to the [facility], patient is on MS Contin, and Percocet for chronic pain, given a dose of Narcan and was transferred to [facility] for further evaluation, she was found to be in acute kidney failure with a creatinine of 6.79. Her previous creatinine on 05/23/2017 was 1.36. Denied any recent fever, or chills, no nausea, vomiting or diarrhea. Denied any urinary symptoms. She does have a solitary kidney. Patient was on George inhibitors at home, no history of NSAID use prior to admission. Brain CT showed hypodensity involving the posterior right parietal lobe possibly related to subacute or chronic infarct, no acute intracranial process. Initial chest x-ray showed markedly limited exam due to hypoventilatory lungs, central venous congestion, and prominence of the right hilum. Patient was hydrated, she was given oral sodium bicarb replacements and was switched to IV bicarb infusion. Ultrasound of the abdomen was nondiagnostic. Blood work showed white blood cell count of 15.2, hemoglobin of 12.8, sodium was 139, potassium 6.3, chloride was 111, CO2 was 16, BUN was 94, creatinine was 5.8, moderate leuks, and WBCs of 89. Drug screen was positive for opiates and benzodiazepine. She was started on antibiotic coverage in the form of Rocephin, and IV hydration, and her renal profile improved some, with BUN at 95 and creatinine of 4.87 on today's labs. However her mentation was failing to improve, patient was persistently very lethargic, she has been seen in consultation by pulmonary services. A cardiology consultation was requested today because of accelerated hypertension. Blood pressure at 11 AM this morning 164/70, the time of my examination 198/102. She is complaining of a significant amount of back pain as the right groin sheath from her hemodialysis has just been removed and she's required to lay flat. Blood cell count today 13.9, hemoglobin 13, platelet count 170. Sodium 142, potassium 4.2, BUN 15 creatinine 1.3. 10/01 2018 Patient was seen and examined this morning, overall feeling better. Eager to be discharged home today. Her blood pressure earlier this morning was 180/87, repeat blood pressure 176/90. We will increase her dose of Coreg to 50 mg by mouth twice a day today. Continue the rest of her medications. 10/02/2018 Patient was seen and examined this morning, Blood pressure 118/56 with a heart rate in the 60s, 99% on 2 L of oxygen. White blood cell count 11.1, hemoglobin 14.5, platelet count 158. Sodium 140, potassium 4.7, BUN 30 and creatinine 1.2. Objective - Vital Signs Vital signs: Vital Signs Temp 97.7 F 10/02/18 11:29 Pulse 60 10/02/18 11:53 Resp 16 10/02/18 11:29 BP 150/67 10/02/18 11:29 Pulse Ox 99 10/02/18 11:29 Intake & Output 10/01/18 10/02/18 10/02/18 18:59 06:59 18:59 Intake Total 600 720 Balance 600 720 Weight 129.1 kg 128 kg Intake: Oral 600 720 Other: Voiding Method Toilet # Voids 1 1 1 - Exam GENERAL EXAM: Somnolent, obese 63-year-old -[place] female, in no acute distress at the time of my examination HEAD: Normocephalic/atraumatic. EYES: Normal reaction of pupils, equal size. Conjunctiva pink, sclera white. NOSE: Clear with pink turbinates. THROAT: No erythema or exudates. NECK: No masses, no JVD, no thyroid enlargement, no adenopathy. CHEST: No chest wall deformity. Symmetrical expansion. LUNGS: Equal air entry with a few scattered rhonchi, diminished breath sounds at the bases, no dullness, no wheezing CVS: Regular rate and rhythm, normal S1 and S2, no gallops, no murmurs, no rubs ABDOMEN: Soft, nontender. No hepatosplenomegaly, normal bowel sounds, no guarding or rigidity. EXTREMITIES: No clubbing, no edema, no cyanosis, 2+ pulses and upper and lower extremities. MUSCULOSKELETAL: Muscle strength and tone normal. SPINE: No scoliosis or deformity SKIN: No rashes CENTRAL NERVOUS SYSTEM: Alert and oriented 3 - Labs CBC & Chem 7: 10/02/18 07:22 10/02/18 07:22 Labs: Abnormal Lab Results - Last 24 Hours (Table) 10/01/18 10/01/18 10/02/18 Range/Units 16:17 21:12 06:28 WBC (3.8-10.6) k/uL Neutrophils # (1.3-7.7) k/uL BUN (7-17) mg/dL Creatinine (0.52-1.04) mg/dL Glucose (74-99) mg/dL POC Glucose (mg/dL) 207 H 118 H 107 H (75-99) mg/dL AST (14-36) U/L ALT (9-52) U/L 10/02/18 10/02/18 10/02/18 Range/Units 07:22 07:22 11:11 WBC 11.1 H (3.8-10.6) k/uL Neutrophils # 8.5 H (1.3-7.7) k/uL BUN 30 H (7-17) mg/dL Creatinine 1.28 H (0.52-1.04) mg/dL Glucose 119 H (74-99) mg/dL POC Glucose (mg/dL) 187 H (75-99) mg/dL AST 137 H (14-36) U/L ALT 133 H (9-52) U/L Microbiology - Last 24 Hours (Table) 09/25/18 12:09 Blood Culture - Final Blood No Growth after 144 hours Assessment and Plan Plan: Assessment: #1. Altered mental status, increased lethargy, and blood gas showed mixed respiratory and metabolic acidosis. Chest x-ray showed left basilar atelectasis or infiltrate #2. Acute kidney injury, likely related to acute tubular necrosis. Nephrology is following, hemodialysis treatment has been initiated after aggressive IV hydration #3. Hyperkalemia #4. History of nephrectomy #5. Hypertension, uncontrolled #6. Non-anion gap metabolic acidosis related to renal failure #7. History of deep venous thrombosis, on Eliquis #8. History of chronic bronchial asthma #9. Possible urinary tract infection #10. Chronic pain syndrome Plan Echocardiogram with Doppler study revealed an ejection fraction of 50%. We will continue the patient on her current medications. She may be able to be discharged once cleared by primary. We will follow her along now with you on an as-needed basis only, please don't hesitate to call with any questions. DNP note has been reviewed, I agree with a documented findings and plan of care. Patient was seen and examined.
== END 2018-10-02 14:23 | disposition home or self-care (01) | DRG 917 ==
LOC: EC 15:31 → 3SCARD 17:15
PROVIDERS: ADMIT Internal Medicine; ATTEND Internal Medicine
PROC: 5A1D70Z Performance of Urinary Filtration, Intermittent, Less than 6 Hours Per Day (ICD-10-PCS; 2018-09-26)
PROC: 06H033Z Insertion of Infusion Device into Inferior Vena Cava, Percutaneous Approach (ICD-10-PCS; principal; 2018-09-26 15:30)
PROC: 5A09357 Assistance with Respiratory Ventilation, Less than 24 Consecutive Hours, Continuous Positive Airway Pressure (ICD-10-PCS; 2018-09-26 15:30)
PROC: 06PYX3Z Removal of Infusion Device from Lower Vein, External Approach (ICD-10-PCS; 2018-09-28)
DX: T40.2X1A Poisoning by other opioids, accidental (unintentional), initial encounter (principal); N17.0 Acute kidney failure with tubular necrosis; J96.02 Acute respiratory failure with hypercapnia; G92 Toxic encephalopathy; E87.4 Mixed disorder of acid-base balance; Z68.42 Body mass index [BMI] 45.0-49.9, adult; J98.11 Atelectasis; N39.0 Urinary tract infection, site not specified; E11.22 Type 2 diabetes mellitus with diabetic chronic kidney disease; E87.5 Hyperkalemia; N18.3 Chronic kidney disease, stage 3 (moderate); J44.9 Chronic obstructive pulmonary disease, unspecified; I12.9 Hypertensive chronic kidney disease with stage 1 through stage 4 chronic kidney disease, or unspecified chronic kidney disease; G89.4 Chronic pain syndrome; M19.90 Unspecified osteoarthritis, unspecified site; E66.9 Obesity, unspecified; D72.829 Elevated white blood cell count, unspecified; R00.0 Tachycardia, unspecified; R74.8 Abnormal levels of other serum enzymes; G47.33 Obstructive sleep apnea (adult) (pediatric); T46.4X5A Adverse effect of angiotensin-converting-enzyme inhibitors, initial encounter; Z79.899 Other long term (current) drug therapy; Z79.01 Long term (current) use of anticoagulants; Z79.4 Long term (current) use of insulin; Z86.718 Personal history of other venous thrombosis and embolism; Z90.5 Acquired absence of kidney; Z85.528 Personal history of other malignant neoplasm of kidney; Z82.3 Family history of stroke
CPT/HCPCS: 36556; 36600; 70450; 71045; 71046; 71250; 76705; 76770; 76937; 77001; 80048; 80053; 80306; 81001; 82805; 83036; 85025; 85610; 86704; 86705; 86709; 87040; 87086; 90935; 93306; 93975; 94640; 94660; 94760; 96361; 96374; 99285

== ENCOUNTER → 2019-05-29 | Outpatient (CLI) | payer MEDICARE, OTHER ==
--- NOTE | 2019-05-30 12:19 | MM ---
Reason for exam: screening (asymptomatic). Last mammogram was performed 1 year and 10 months ago. History: Patient is postmenopausal and has history of other cancer at age 47. Physical Findings: A clinical breast exam by your physician is recommended on an annual basis and results should be correlated with mammographic findings. MG 3D Screening Mammo W/Cad Bilateral CC, MLO, and XCCL view(s) were taken. Prior study comparison: August 09, 2017, bilateral MG 3d screening mammo w/cad. There are scattered fibroglandular densities. Focal asymmetry left lower MLO and IMF/MLO. ASSESSMENT: Incomplete: need additional imaging evaluation, BI-RAD 0 RECOMMENDATION: Special view mammogram of the left breast. If lesion persists on supplemental views, image directed ultrasound is recommended. [facility] will attempt to contact patient to return for supplemental views and ultrasound if indicated.
== END | disposition home or self-care (01) ==
LOC: RADMAMWWP 14:16
PROVIDERS: ATTEND Internal Medicine
DX: Z12.31 Encounter for screening mammogram for malignant neoplasm of breast (principal)
CPT/HCPCS: 77063; 77067

== ENCOUNTER → 2019-06-13 | Outpatient (CLI) | payer MEDICARE, OTHER ==
--- NOTE | 2019-06-14 07:54 | MM ---
Reason for exam: additional evaluation requested from abnormal screening. Last mammogram was performed less than 1 month ago. History: Patient is postmenopausal and has history of other cancer at age 47. Physical Findings: Nurse did not find any significant physical abnormalities on exam. MG 3D Work Up W/Cad LT Spot compression MLO, LM, and ML view(s) were taken of the left breast. Prior study comparison: May 29, 2019, bilateral MG 3d screening mammo w/cad. August 09, 2017, bilateral MG 3d screening mammo w/cad. There are scattered fibroglandular densities. Benign appearing calcifications in the left breast. The previously seen abnormality resolves on additional views and appears as fibroglandular tissue compatible with summation. No suspicious abnormality. These results were verbally communicated with the patient and result sheet given to the patient on 06/13/19. ASSESSMENT: Benign, BI-RAD 2 RECOMMENDATION: Return to routine screening mammogram schedule for both breasts.
== END | disposition home or self-care (01) ==
LOC: RADMAMWWP 14:01
PROVIDERS: ATTEND Internal Medicine
DX: R92.8 Other abnormal and inconclusive findings on diagnostic imaging of breast (principal)
CPT/HCPCS: 77065; G0279; 77061